=== PATIENT | female | born 1945 | race Caucasian/White ===

== ENCOUNTER 2017-03-14 18:51 | Inpatient (IN) ==
[2017-03-14] MEDS ORDERED: Ipratropium/Albuterol Neb 3 ML IH ONE (19:13)
[2017-03-14] MEDS ORDERED: methylPREDNISolone 125 MG/2 ML VIAL IVP ONE (19:13)
--- NOTE | 2017-03-14 19:35 | Emergency Department Note ---
START Narrative - START START: I examined this patient and my medical decision-making was reviewed with the Resident Physician. I agree with the documented findings, disposition and treatment plan as described except to the extent set forth below. 71 yo F here for weakness, sob. unable to get around at home and ambulate due to her sob. she has hx of copd. wears home O2 chronically. will check labs, cardiac eval, cxr, ekg is concerning for diffuse lateral t wave inversions will need to be admitted
--- NOTE | 2017-03-14 19:39 | Emergency Department Note ---
Disposition Clinical Impression: Congestive heart failure Qualifiers: Congestive heart failure type: unspecified Congestive heart failure chronicity : unspecified Qualified Code(s): I50.9 - Heart failure, unspecified Anemia Qualifiers: Anemia type: unspecified type Qualified Code(s): D64.9 - Anemia, unspecified Cellulitis Qualifiers: Site of cellulitis: unspecified site Qualified Code(s): L03.90 - Cellulitis, unspecified Disposition: Admitted As Inpatient Condition: Fair Referrals: Hawk Sarmiento MD [Primary Care Provider] - Forms: ED Satisfaction Letter Time of Disposition: 22:17 General Adult HPI - General Chief complaint: ED Shortness of Breath/Dyspnea Stated complaint: ELISE Time Seen by Provider: 03/14/17 18:57 Source: patient, EMS Limitations: no limitations Nursing Notes Reviewed: Yes Vital Signs Reviewed: Yes - History of Present Illness HPI Narrative: Mrs. Rutherford, 71-year-old female, presents from home via EMS with multiple complaints. She lives at home with her son who is not bedside. Patient presents with dyspnea at rest and weakness. This has been progressive for the past 2 weeks. She has a history of COPD on 4 L nasal cannula continuous. She does not use any home inhalers. No fever, chills, cough, chest pains, palpitations. She also notes a warm tender mass in her left breast. This is better evaluated by her primary care physician and she was instructed to apply moist heat. Her symptoms have not improved with this management. She is, at baseline, incontinent of bowel and bladder and ambulates with walker. She typically self manages her care. However, for the past 2 weeks, she has been too weak and dyspneic. She has increasingly relied on her family to care for her. She states she has not been changed all day and they mock her with name calling. Pain Scale: 8 - Related Data Home Medications Medication Instructions Recorded Confirmed Aspirin Enteric Coated [Aspirin EC] 81 mg PO QAM 12/14/14 03/14/17 Cholecalciferol (Vitamin D3) 10,000 unit PO MO 12/14/14 03/14/17 [Vitamin D3] Digoxin [Lanoxin] 0.125 mg PO 1200 12/14/14 03/14/17 Docusate [Colace] 100 mg PO BID 12/14/14 03/14/17 Duloxetine HCl [Cymbalta] 60 mg PO QAM 12/14/14 03/14/17 Gabapentin [Neurontin] 100 mg PO TID 12/14/14 03/14/17 Nitroglycerin 0.4 mg SL Q5MIN PRN 12/14/14 03/14/17 Omeprazole [PriLOSEC] 40 mg PO QAM 12/14/14 03/14/17 Rivaroxaban [Xarelto] 20 mg PO QPM 12/14/14 03/14/17 Simvastatin [Zocor] 40 mg PO HS 12/14/14 03/14/17 TraZODone 50 mg PO HS 12/14/14 03/14/17 Levothyroxine [Synthroid] 88 mcg PO QAM 03/24/15 03/14/17 Polyethylene Glycol 3350 [MiraLAX] 17 gm PO DAILY PRN 08/31/15 03/14/17 Metoprolol XL (24 HR) Succ [Toprol 25 mg PO DAILY 03/14/17 03/14/17 XL] Previous Rx's Medication Instructions Recorded OxyCODONE/APAP 10/325 [Percocet 1 each PO Q6HR PRN #25 tablet 03/27/15 10/325 MG] Allergies Allergy/AdvReac Type Severity Reaction Status Date / Time Penicillins [PCN] Allergy Blister Verified 03/24/15 17:12 All systems ED: reviewed and negative except as stated. Review of Systems: As Per HPI Past Medical History - Past Medical History Medical history: Reports: arthritis, atrial fibrillation, COPD, GERD, hyperlipidemia, hypertension, thyroid disease, other Surgical history: Reports: orthopedic, other, pacemaker/AICD Psychiatric history: Reports: anxiety, depression - Social History Smoking Status: Never smoker Smokeless Tobacco Status: No Alcohol use: Reports: none Drug use: Reports: none Physical Exam Vital Signs Reviewed General: Patient is alert, oriented, and in no acute distress. Head: atraumatic, normocephalic Eye: normal appearance, PERRL, EOMI, no scleral icterus, no conjunctival injection ENT: mucous membranes moist, normal external ear exam Neck: normal inspection, trachea midline, full ROM Chest: normal inspection, symmetric chest rise. Respiratory: Poor respiratory effort. Prolonged expiratory phase. Bilateral breath sounds globally diminished without wheezing, crackles, or rhonchi. Cardiovastular: Regular rate and rhythm. No clicks, rubs, gallops, or murmors. Normal heart sounds. Abdomen: Obese. Bowel sounds present normoactive x-4 quadrants. Abdomen is soft, nondistended, and nontender. No guarding or rebound. No organomegaly noted. 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 No hemorrhoids palpated, stool in rectal vault , melanotic stool on gloved finger. Hemoccult submitted. Musculoskeletal: Spontaneously moving all extremities. Skin: warm, dry, intact. Breasts with lateral erythematous skin; left breast is noticeably more dense than right. [employer]ing [employer] Worker present. Neuro: Alert and oriented x4. Sensation light touch intact. Psych: Patient's affect is appropriate for situation. - General Limitations: no limitations General appearance: alert, in no apparent distress Course Course Narrative: We will perform workup looking for cardiogenic versus pulmonary versus hematologic source of her dyspnea. Patient's elevated d-dimer; CTA chest shows no PE. Clinically, patient's erythematous warm tender and swollen left breast appears to be sialitis. No fluctuance. CTA chest did not show abscess collection. We will provide empiric antibody coverage. Patient has slight elevation of BNP. She denies prior diagnosis of CHF and this is not found in her chart. She does, however, have pacemaker placed. We will provide Lasix. Echocardiogram dated 08/10/15 shows LVEF 50% with pulmonary hypertension. Indeterminate LV diastolic function with atypical septal motion consistent with paced rhythm. Normal LV chamber size, wall thickness, and function. Patient has anemia that appears to be acute. She reports melanotic stools. Hemoccult is negative. Protonix was provided after rectal exam and prior to Hemoccult results; rectal exam showed melanotic stool. We will admit the patient for anemia of unknown cause, acute exacerbation of congestive heart failure, cellulitis of her left breast, and contact with social security specialist for her home life. I discussed the patient with the admitting hospitalist who agrees to accept the patient for continued evaluation and management. Vital Signs Temperature 98.8 F 03/14/17 18:53 Pulse Rate 89 03/14/17 18:53 Respiratory Rate 18 03/14/17 18:53 Blood Pressure 161/141 03/14/17 18:53 O2 Sat by Pulse Oximetry 94 03/14/17 18:53 Temperature 98.8 F 03/14/17 18:53 Pulse Rate 89 03/14/17 18:53 Respiratory Rate 22 03/14/17 19:20 Blood Pressure 161/141 03/14/17 18:53 O2 Sat by Pulse Oximetry 91 03/14/17 19:20 Oxygen Delivery Oxygen Delivery Nasal Cannula Medical Decision Making - Medical Records Medical records reviewed: Yes I reviewed the patient's medical records. - Lab Data Lab results reviewed: Yes I reviewed the patient's lab results. Result diagrams: 03/14/17 19:46 03/14/17 19:46 Lab Results 03/14/17 03/14/17 03/14/17 Range/Units 19:46 19:46 19:46 WBC 8.8 (4.3-11.1) K/mcL RBC 3.69 L (3.82-4.97) M/mcL Hgb 8.3 L (11.5-15.4) g/dL Hct 29.4 L (35.3-44.9) % MCV 79.7 L (83.0-100.0) fL MCH 22.5 L (28.0-33.3) pg MCHC 28.2 L (31.6-35.5) g/dL RDW 16.7 H (11.5-14.5) % Plt Count 256 (140-400) K/mcL MPV 10.7 (9.4-12.4) fL Immature Gran % 0.2 (0-4) % Seg Neutrophils % 74.6 % Lymphocytes % 14.9 % Monocytes % 8.4 % Eosinophils % 1.0 % Basophils % 0.9 % Neutrophils # 6.6 (1.6-8.9) K/mcL Lymphocytes # 1.3 (0.6-4.6) K/mcL Monocytes # 0.7 (0.0-1.3) K/mcL Eosinophils # 0.1 (0.0-0.6) K/mcL Basophils # 0.1 (0.0-0.2) K/mcL Platelet Estimate Normal (Normal) Hypochromasia Present A (Not Present) Anisocytosis 1+ A (Not Present) Target Cells 1+ A (Not Present) PT 20.1 H (9.4-12.1) Seconds INR 1.8 APTT 31.9 (26.0-36.0) Seconds D-Dimer 2261 H (0-500) ng/mLFEU Sodium 140 (136-145) mEq/L Potassium 3.9 (3.5-5.1) mEq/L Chloride 101 (98-107) mEq/L Carbon Dioxide 36 H (23-29) mEq/L BUN 13 (8-23) mg/dL Creatinine 0.69 (0.60-1.20) mg/dL Est GFR ( Amer) > 60 (> 60) Est GFR (Non-Af Amer) > 60 (> 60) BUN/Creatinine Ratio 19 (6-26) Glucose 100 (70-105) mg/dL Calculated Osmolality 290 (280-300) Lactic Acid (0.5-2.2) mmol/L Calcium 9.2 (8.6-10.3) mg/dL Troponin I (< 0.04) ng/mL B-Natriuretic Peptide (Less than 100) pg/mL Urine Color (Yellow) Urine Clarity (Clear) Urine pH (5.0-8.0) pH Units Ur Specific Adams (1.010-1.025) Urine Protein (Neg-Trace) mg/dL Urine Glucose (UA) (Normal) mg/dL Urine Ketones (Negative) mg/dL Urine Blood (Negative) Urine Nitrite (Negative) Urine Bilirubin (Negative) Urine Urobilinogen (Normal) mg/dL Ur Leukocyte Esterase (Negative) Urine Microscopic RBC (0-3) per hpf Urine Microscopic WBC (0-3) per hpf Ur Squamous Epith Cells (None-Few) per lpf Urine Bacteria (None-Few) per hpf Hyaline Casts (None-Few) per lpf Ur Culture Indicated? (NO) Stool Occult Blood (Negative) 03/14/17 03/14/17 03/14/17 Range/Units 19:46 19:46 19:46 WBC (4.3-11.1) K/mcL RBC (3.82-4.97) M/mcL Hgb (11.5-15.4) g/dL Hct (35.3-44.9) % MCV (83.0-100.0) fL MCH (28.0-33.3) pg MCHC (31.6-35.5) g/dL RDW (11.5-14.5) % Plt Count (140-400) K/mcL MPV (9.4-12.4) fL Immature Gran % (0-4) % Seg Neutrophils % % Lymphocytes % % Monocytes % % Eosinophils % % Basophils % % Neutrophils # (1.6-8.9) K/mcL Lymphocytes # (0.6-4.6) K/mcL Monocytes # (0.0-1.3) K/mcL Eosinophils # (0.0-0.6) K/mcL Basophils # (0.0-0.2) K/mcL Platelet Estimate (Normal) Hypochromasia (Not Present) Anisocytosis (Not Present) Target Cells (Not Present) PT (9.4-12.1) Seconds INR APTT (26.0-36.0) Seconds D-Dimer (0-500) ng/mLFEU Sodium (136-145) mEq/L Potassium (3.5-5.1) mEq/L Chloride (98-107) mEq/L Carbon Dioxide (23-29) mEq/L BUN (8-23) mg/dL Creatinine (0.60-1.20) mg/dL Est GFR ( Amer) (> 60) Est GFR (Non-Af Amer) (> 60) BUN/Creatinine Ratio (6-26) Glucose (70-105) mg/dL Calculated Osmolality (280-300) Lactic Acid 1.1 (0.5-2.2) mmol/L Calcium (8.6-10.3) mg/dL Troponin I 0.03 (< 0.04) ng/mL B-Natriuretic Peptide 368 H (Less than 100) pg/mL Urine Color (Yellow) Urine Clarity (Clear) Urine pH (5.0-8.0) pH Units Ur Specific Adams (1.010-1.025) Urine Protein (Neg-Trace) mg/dL Urine Glucose (UA) (Normal) mg/dL Urine Ketones (Negative) mg/dL Urine Blood (Negative) Urine Nitrite (Negative) Urine Bilirubin (Negative) Urine Urobilinogen (Normal) mg/dL Ur Leukocyte Esterase (Negative) Urine Microscopic RBC (0-3) per hpf Urine Microscopic WBC (0-3) per hpf Ur Squamous Epith Cells (None-Few) per lpf Urine Bacteria (None-Few) per hpf Hyaline Casts (None-Few) per lpf Ur Culture Indicated? (NO) Stool Occult Blood (Negative) 03/14/17 03/14/17 Range/Units 20:25 21:35 WBC (4.3-11.1) K/mcL RBC (3.82-4.97) M/mcL Hgb (11.5-15.4) g/dL Hct (35.3-44.9) % MCV (83.0-100.0) fL MCH (28.0-33.3) pg MCHC (31.6-35.5) g/dL RDW (11.5-14.5) % Plt Count (140-400) K/mcL MPV (9.4-12.4) fL Immature Gran % (0-4) % Seg Neutrophils % % Lymphocytes % % Monocytes % % Eosinophils % % Basophils % % Neutrophils # (1.6-8.9) K/mcL Lymphocytes # (0.6-4.6) K/mcL Monocytes # (0.0-1.3) K/mcL Eosinophils # (0.0-0.6) K/mcL Basophils # (0.0-0.2) K/mcL Platelet Estimate (Normal) Hypochromasia (Not Present) Anisocytosis (Not Present) Target Cells (Not Present) PT (9.4-12.1) Seconds INR APTT (26.0-36.0) Seconds D-Dimer (0-500) ng/mLFEU Sodium (136-145) mEq/L Potassium (3.5-5.1) mEq/L Chloride (98-107) mEq/L Carbon Dioxide (23-29) mEq/L BUN (8-23) mg/dL Creatinine (0.60-1.20) mg/dL Est GFR ( Amer) (> 60) Est GFR (Non-Af Amer) (> 60) BUN/Creatinine Ratio (6-26) Glucose (70-105) mg/dL Calculated Osmolality (280-300) Lactic Acid (0.5-2.2) mmol/L Calcium (8.6-10.3) mg/dL Troponin I (< 0.04) ng/mL B-Natriuretic Peptide (Less than 100) pg/mL Urine Color Yellow (Yellow) Urine Clarity Cloudy A (Clear) Urine pH 7.0 (5.0-8.0) pH Units Ur Specific Adams 1.012 (1.010-1.025) Urine Protein Negative (Neg-Trace) mg/dL Urine Glucose (UA) Normal (Normal) mg/dL Urine Ketones Negative (Negative) mg/dL Urine Blood Small H (Negative) Urine Nitrite Negative (Negative) Urine Bilirubin Negative (Negative) Urine Urobilinogen 4.0 H (Normal) mg/dL Ur Leukocyte Esterase Trace H (Negative) Urine Microscopic RBC 3-5 H (0-3) per hpf Urine Microscopic WBC 5-15 H (0-3) per hpf Ur Squamous Epith Cells Many H (None-Few) per lpf Urine Bacteria Few (None-Few) per hpf Hyaline Casts None Seen (None-Few) per lpf Ur Culture Indicated? NO. (NO) Stool Occult Blood Negative (Negative) - Radiology Data Radiology results reviewed: Yes I reviewed the patient's radiology results. - EKG Data EKG #1 EKG attestation: Yes I reviewed and interpreted this EKG. EKG results narrative: EKG dated 14 March 2017 at 19:04 interpreted as atrial flutter fibrillation with a rate of 78. Concerning T-wave inversions in leads V3 through V6 that are new from comparison EKG dated 08/31/2015.
[2017-03-14 19:57] LABS: Hemoglobin 8.3 g/dL (11.5-15.4); Immature Granulocytes % 0.2 % (0-4); Red Cell Distribution Width 16.7 % (11.5-14.5)
[2017-03-14 19:58] LABS: Basophils # 0.1 K/mcL (0.0-0.2); Basophils % 0.9 %; Eosinophils # 0.1 K/mcL (0.0-0.6); Hematocrit 29.4 % (35.3-44.9); Lymphocytes # 1.3 K/mcL (0.6-4.6); Lymphocytes % 14.9 %; Mean Corpuscular HGB Conc 28.2 g/dL (31.6-35.5); Mean Corpuscular Hemoglobin 22.5 pg (28.0-33.3); Mean Corpuscular Volume 79.7 fL (83.0-100.0); Mean Platelet Volume 10.7 fL (9.4-12.4); Monocytes # 0.7 K/mcL (0.0-1.3); Monocytes % 8.4 %; Platelet Count 256 K/mcL (140-400); Red Blood Count 3.69 M/mcL (3.82-4.97); Segmented Neutrophils % 74.6 %
[2017-03-14 20:01] LABS: Neutrophils # 6.6 K/mcL (1.6-8.9)
[2017-03-14 20:06] LABS: Calcium 9.2 mg/dL (8.6-10.3); Carbon Dioxide 36 mEq/L (23-29); Chloride 101 mEq/L (98-107); Potassium 3.9 mEq/L (3.5-5.1); Sodium 140 mEq/L (136-145)
[2017-03-14 20:09] LABS: INR 1.8; Prothrombin Time 20.1 Seconds (9.4-12.1)
[2017-03-14 20:11] LABS: BUN/Creatinine Ratio 19 (6-26); Blood Urea Nitrogen 13 mg/dL (8-23); Glucose 100 mg/dL (70-105); Osmolality,Calculated 290 (280-300); eGFR For African Americans > 60 (> 60); eGFR For Non-African Americans > 60 (> 60)
[2017-03-14 20:12] LABS: Activated Partial Thrombo Time 31.9 Seconds (26.0-36.0)
[2017-03-14 20:24] LABS: Anisocytosis 1+ (Not Present); Hypochromasia Present (Not Present)
[2017-03-14 20:25] LABS: Platelet Estimate Normal (Normal); Target Cells 1+ (Not Present)
[2017-03-14 20:35] LABS: Bilirubin,Urine Negative (Negative); Blood,Urine Small (Negative); Clarity,Urine Cloudy (Clear); Color,Urine Yellow (Yellow); Glucose,Urine (UA) Normal (Normal); Ketones,Urine Negative (Negative); Leukocyte Esterase,Urine Trace (Negative); Nitrite,Urine Negative (Negative); Protein,Urine Negative (Neg-Trace); Specific Gravity,Urine 1.012 (1.010-1.025)
[2017-03-14 20:37] LABS: Bacteria,Urine Few per hpf (None-Few); Hyaline Casts,Urine None Seen per lpf (None-Few); Squamous Epithelial Cell,Urine Many per lpf (None-Few)
[2017-03-14] MEDS ORDERED: Furosemide 40 MG/4 ML VIAL IVP ONE (21:28)
[2017-03-14] MEDS ORDERED: Pantoprazole 40 MG VIAL IVP ONE (21:41)
[2017-03-14] MEDS ORDERED: cefTRIAXone 1,000 MG in Water for inj. (sterile) 20 ML 10 ML IVPB ONE (22:15)
[2017-03-15] MEDS ORDERED: Naloxone 0.4 MG/ML INJ IVP PRN (00:06)
[2017-03-15] MEDS ORDERED: Nitroglycerin 0.4 MG TAB.SUBL SL PRN (00:22)
--- NOTE | 2017-03-15 00:30 | Internal Med History&Physical ---
Date of Encounter: 03/14/17 Time of Encounter: 23:00 Assessment and Plan (1) CHF exacerbation Current visit: Yes Status: Acute Pt has no recent Echo available, echo in 2016 shows EF 50%. Her symptoms and elevated BNP and pulmonary edema sugget CHF exacerbation. - Echo - Lasix 20mg iv daily (pt is not on any lasix at home and she had CTA today, will start lasix from low dose). - Strict I/O, weight daily - Cardiac and fluid restriction diet - Cont NC O2 Qualifiers: Congestive heart failure type: systolic Qualified Code(s): I50.23 - Acute on chronic systolic (congestive) heart failure (2) Abnormal finding on EKG Current visit: Yes Status: Acute Shows multiple leads T wave invertion. No recent ECG to compare, significant changes from EKG in 2016. - Cont cardiac monitoring. - Track 3 sets of troponin - Repeat EKG in AM - F/U Echo result - Consider cardio consult per echo and repeat EKG result. (3) HTN (hypertension) Current visit: No Status: Chronic Cont home meds. Qualifiers: Hypertension type: essential hypertension Qualified Code(s): I10 - Essential (primary) hypertension (4) Afib Current visit: No Status: Acute HR is well controlled, on xarelto for AC. Qualifiers: Atrial fibrillation type: chronic Qualified Code(s): I48.2 - Chronic atrial fibrillation (5) Anemia Current visit: Yes Status: Acute Pt has Hgb 8.3, no recent level available for compare, last one in 2016 was 13.1. MCV 79.7, suspect iron deficiency. FOBT negative in ER. - Place pt on anemia workup - Closely f/u H/H Qualifiers: Anemia type: iron deficiency Qualified Code(s): D50.0 - Iron deficiency anemia secondary to blood loss (chronic) (6) Hypothyroidism Current visit: Yes Status: Acute Cont home meds. Qualifiers: Hypothyroidism type: acquired Qualified Code(s): E03.9 - Hypothyroidism, unspecified Internal Medicine - H&P: HPI Chief complaint: SOB Admitted From: Home Plans for Post Hospital Care: Home History of present illness: Ms. Rutherford is a 71 year old female with Hx of A Fib, HTN, present to ER for SOB. Pt has exertional SOB for months and getting worse in recent 2 weeks. Pt cannot lay flat to sleep, need 3and1/2 pillow. Can not tolerate walking on flat floor for about 10 yards. Pt also has increased leg swelling. Pt denies chest pain. She c/o nausea and vomited once, vomiting is stomach content, no blood in it. Pt denies diaphoresis. In ER, she was found elevated BNP and CXR and CTA shows pulmonary edema. Pt was admitted as CHF exacerbation. She was given lasix 40mg iv once and she has 1.5 L urine came out and she feels much better after the treatment. Past Med Surg Social Fam HX - Past Medical History Medical history: arthritis, atrial fibrillation, COPD, GERD, hyperlipidemia, hypertension, thyroid disease, other Psychiatric history: anxiety, depression - Past Surgical History Surgical History: orthopedic, other, pacemaker/AICD - Social History Smoking Status: Never smoker Smokeless Tobacco Status: No Alcohol use: none Drug use: none - Family History Father Hx Family Cardiac Disorders: Yes (massive CA) Internal Medicine - H&P: Meds Aspirin Enteric Coated [Aspirin EC] 81 mg PO QAM 12/14/14 [History] Cholecalciferol (Vitamin D3) [Vitamin D3] 10,000 unit PO MO 12/14/14 [History] Digoxin [Lanoxin] 0.125 mg PO 1200 12/14/14 [History] Docusate [Colace] 100 mg PO BID 12/14/14 [History] Duloxetine HCl [Cymbalta] 60 mg PO QAM 12/14/14 [History] Gabapentin [Neurontin] 100 mg PO TID 12/14/14 [History] Nitroglycerin 0.4 mg SL Q5MIN PRN 12/14/14 [History] Omeprazole [PriLOSEC] 40 mg PO QAM 12/14/14 [History] Rivaroxaban [Xarelto] 20 mg PO QPM 12/14/14 [History] Simvastatin [Zocor] 40 mg PO HS 12/14/14 [History] TraZODone 50 mg PO HS 12/14/14 [History] Levothyroxine [Synthroid] 88 mcg PO QAM 03/24/15 [History] OxyCODONE/APAP 10/325 [Percocet 10/325 MG] 1 each PO Q6HR PRN #25 tablet [Rx] Polyethylene Glycol 3350 [MiraLAX] 17 gm PO DAILY PRN 08/31/15 [History] Metoprolol XL (24 HR) Succ [Toprol XL] 25 mg PO DAILY 03/14/17 [History] 3 Allergy/AdvReac Type Severity Reaction Status Date / Time Penicillins [PCN] Allergy Blister Verified 03/24/15 17:12 All Systems PM: A 10-system review of systems was performed and is negative for pertinent findings except as documented above in the HPI. - Constitutional Vitals: Temp Pulse Resp BP Pulse Ox 98.4 F 84 18 152/102 92 03/14/17 23:02 03/14/17 23:02 03/14/17 23:02 03/14/17 23:02 03/14/17 23:23 General appearance: Present: A&O X 3, no acute distress, answers questions appropriately - Head Head exam: Present: atraumatic, normocephalic - Eye Eye exam: Present: PERRL, conjuntiva pink, sclera anicteric Pupils: Present: PERRL - Neck Neck exam general surgery: Present: supple, trachea midline. Absent: lymphadenopathy - Respiratory Respiratory exam: Present: CTAB. Absent: accessory muscle use, rales, rhonchi, wheezes - Cardiovascular Cardiovascular exam: Present: RRR, +S1, +S2. Absent: diastolic murmur, gallop, rubs, systolic murmur - GI/Abdominal GI/Abdominal exam: Present: normal bowel sounds, soft, no peritoneal signs. Absent: distended, tenderness - Extremities Exam Extremities exam: Present: pedal edema (mild pedal edema b/l), warm, radial pulses palpable and symmetrical. Absent: calf tenderness, cyanotic - Neurological Exam Neurological exam: Present: CN II-XII intact, oriented X3, no focal deficits. Absent: pronater drift, facial droop, speech deficit - Skin Skin exam: Present: dry, intact Internal Med - H&P Results - Labs CBC & Chem 7: 03/14/17 19:46 03/14/17 19:46 - EKG Data -: EKG Interpreted by Myself (Azael Mejias, ) EKG shows normal: ST-T waves (T wave inversion on I, AVL, II, III, AVF, V3-V6)
[2017-03-15 00:38] LABS: Monocytes % 0.9 %
[2017-03-15 00:39] LABS: Basophils % 0.5 %; Hematocrit 30.5 % (35.3-44.9); Hemoglobin 8.7 g/dL (11.5-15.4); Immature Granulocytes % 0.5 % (0-4); Lymphocytes # 0.4 K/mcL (0.6-4.6); Lymphocytes % 4.5 %; Mean Corpuscular HGB Conc 28.5 g/dL (31.6-35.5); Mean Corpuscular Hemoglobin 22.3 pg (28.0-33.3); Mean Corpuscular Volume 78.2 fL (83.0-100.0); Mean Platelet Volume 10.4 fL (9.4-12.4); Monocytes # 0.1 K/mcL (0.0-1.3); Neutrophils # 7.3 K/mcL (1.6-8.9); Platelet Count 265 K/mcL (140-400); Red Cell Distribution Width 16.7 % (11.5-14.5); Segmented Neutrophils % 93.6 %
[2017-03-15 01:03] LABS: BUN/Creatinine Ratio 17 (6-26); Blood Urea Nitrogen 13 mg/dL (8-23); Calcium 9.3 mg/dL (8.6-10.3); Carbon Dioxide 36 mEq/L (23-29); Chloride 98 mEq/L (98-107); Glucose 144 mg/dL (70-105); Osmolality,Calculated 295 (280-300); Potassium 3.8 mEq/L (3.5-5.1); Sodium 141 mEq/L (136-145); eGFR For African Americans > 60 (> 60); eGFR For Non-African Americans > 60 (> 60)
[2017-03-15 01:24] LABS: Anisocytosis 1+ (Not Present); Hypochromasia Present (Not Present)
[2017-03-15 01:25] LABS: Microcytosis Present (Not Present); Platelet Estimate Normal (Normal); Polychromasia 1+ (Not Present)
[2017-03-15] MEDS: traZODone 50 MG TABLET PO SCH ×2 (03:16→21:36)
[2017-03-15 06:34] LABS: Thyroid Stimulating Hormone 0.713 mcIU/mL (0.340-5.600)
[2017-03-15] MEDS: *HR* OxyCODONE/APAP 10/325 TABLET PO PRN ×2 (11:06→21:39)
[2017-03-15] MEDS: *HR* Digoxin 0.125 MG TABLET PO SCH (11:06)
[2017-03-15] MEDS: Metoprolol XL (24 HR) Succ 25 MG TAB.ER.24H PO SCH (11:06)
[2017-03-15] MEDS: Gabapentin 100 MG CAPSULE PO SCH ×3 (11:07→21:33)
[2017-03-15] MEDS: Aspirin Enteric Coated 81 MG Tablet PO SCH (11:07)
[2017-03-15] MEDS: Furosemide 20 MG/2 ML VIAL IVP SCH (11:07)
[2017-03-15] MEDS ORDERED: Ipratropium/Albuterol Neb 3 ML IH PRN (12:00)
--- NOTE | 2017-03-15 17:52 | Event Note ---
Date of Encounter: 03/15/17 Time of Encounter: 13:00 71-year-old female with history of hypertension, atrial fibrillation, hypothyroidism, COPD with home oxygen, admitted with worsening shortness of breath and leg swelling. She also has left breast swelling and pain. Seen and examined at bedside. Reports feeling very tired, wanting to rest, hence refused mammogram earlier today. Chest-S1, S2 heard, irregular rate and rhythm. Lungs with bibasal crackles Left breast-diffuse edema with peau d'orange appearance, mildly tender; no erythema or warmth or open wounds; Acute exacerbation of CHF-continue low-dose IV Lasix. Fluid restriction, urine output monitoring. Serial troponins noted to be negative. Continue aspirin and beta marianna. Check 2-D echocardiogram. Left breast swelling/edema-likely related to volume overload or lymphangitis. Started on empiric IV Rocephin for possible cellulitis. Check left breast mammogram and ultrasound.
[2017-03-15] MEDS: *HR* Rivaroxaban 10 MG TABLET PO SCH (18:24)
--- NOTE | 2017-03-15 19:49 | Electrocardiograph Report ---
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
[2017-03-15] MEDS: cefTRIAXone 1,000 MG in Water for inj. (sterile) 20 ML 10 ML IVP SCH (21:34)
[2017-03-16 06:07] LABS: Monocytes % 11.2 %
[2017-03-16 06:08] LABS: Basophils # 0.1 K/mcL (0.0-0.2); Basophils % 0.9 %; Eosinophils # 0.1 K/mcL (0.0-0.6); Eosinophils % 1.3 %; Hemoglobin 8.9 g/dL (11.5-15.4); Immature Granulocytes % 0.3 % (0-4); Lymphocytes # 2.1 K/mcL (0.6-4.6); Lymphocytes % 24.3 %; Mean Corpuscular HGB Conc 28.7 g/dL (31.6-35.5); Mean Corpuscular Hemoglobin 22.7 pg (28.0-33.3); Mean Corpuscular Volume 79.1 fL (83.0-100.0); Mean Platelet Volume 10.7 fL (9.4-12.4); Platelet Count 277 K/mcL (140-400); Red Blood Count 3.92 M/mcL (3.82-4.97); Red Cell Distribution Width 17.2 % (11.5-14.5)
[2017-03-16 06:13] LABS: Neutrophils # 5.5 K/mcL (1.6-8.9)
[2017-03-16 06:32] LABS: Anisocytosis 1+ (Not Present); Hypochromasia Present (Not Present)
[2017-03-16 06:33] LABS: Platelet Estimate Normal (Normal)
[2017-03-16 06:34] LABS: BUN/Creatinine Ratio 20 (6-26); Blood Urea Nitrogen 17 mg/dL (8-23); Calcium 9.3 mg/dL (8.6-10.3); Carbon Dioxide 38 mEq/L (23-29); Chloride 97 mEq/L (98-107); Glucose 93 mg/dL (70-105); Osmolality,Calculated 293 (280-300); Potassium 3.7 mEq/L (3.5-5.1); Sodium 141 mEq/L (136-145); eGFR For African Americans > 60 (> 60); eGFR For Non-African Americans > 60 (> 60)
[2017-03-16] MEDS: Aspirin Enteric Coated 81 MG Tablet PO SCH (07:28)
[2017-03-16] MEDS: Furosemide 20 MG/2 ML VIAL IVP SCH (07:28)
[2017-03-16] MEDS: Gabapentin 100 MG CAPSULE PO SCH ×3 (07:28→21:16)
[2017-03-16] MEDS: Metoprolol XL (24 HR) Succ 25 MG TAB.ER.24H PO SCH (07:28)
[2017-03-16] MEDS: *HR* Digoxin 0.125 MG TABLET PO SCH (11:36)
[2017-03-16] MEDS: *HR* Rivaroxaban 10 MG TABLET PO SCH (17:16)
--- NOTE | 2017-03-16 17:53 | Internal Med Progress Note ---
Date of Encounter: 03/16/17 Time of Encounter: 13:30 - Assessment and plan (1) Congestive heart failure Current Visit: Yes Status: Acute Assessment and plan: Echocardiogram shows 50% ejection fraction, indeterminate diastolic dysfunction , severe left atrial dilation, moderate to severe right atrial dilation, moderate tricuspid regurgitation, severe pulmonary hypertension. Likely cor pulmonale. Noted to have excellent urine output. Continue IV Lasix for now along with fluid restriction and urine output monitoring. Continue beta marianna and telemetry. Physical and occupational therapy evaluation recommended ECF placement. surgical services tech on board. Qualifiers: Heart failure type: diastolic Heart failure chronicity: acute Qualified Code(s): I50.31 - Acute diastolic (congestive) heart failure (2) Abnormal finding on EKG Current Visit: Yes Status: Acute Assessment and plan: Initial EKG noted to show T-wave inversions in precordial leads. Serial troponins negative for ACS. Continue telemetry monitoring, repeat EKG. (3) Anemia Current Visit: Yes Status: Acute Assessment and plan: Microcytic anemia; iron profile shows iron deficiency, started on oral ferrous sulfate supplements; stool occult blood negative; serum Vit B12 and folate levels normal; monitor Hb closely; Qualifiers: Anemia type: iron deficiency Iron deficiency anemia type: unspecified iron deficiency Qualified Code(s): D50.9 - Iron deficiency anemia, unspecified (4) Cellulitis Current Visit: Yes Status: Acute Assessment and plan: Patient is being empirically treated with IV Rocephin for left breast cellulitis. Suspicion for cellulitis is low but patient does have significant edema and tenderness in left breast with no erythema or focal swelling. Pending mammogram and left breast ultrasound. Qualifiers: Site of cellulitis: other site Qualified Code(s): L03.818 - Cellulitis of other sites (5) Afib Current Visit: Yes Status: Chronic Assessment and plan: Currently rate controlled. Continue digoxin and beta marianna. Long-term anticoagulation with Xarelto. Qualifiers: Atrial fibrillation type: chronic Qualified Code(s): I48.2 - Chronic atrial fibrillation (6) COPD (chronic obstructive pulmonary disease) Current Visit: Yes Status: Chronic Assessment and plan: Not in acute exacerbation. Continue when necessary bronchodilators. Patient is noted to be on home oxygen at 4 L/m via nasal cannula. Qualifiers: COPD type: unspecified COPD Qualified Code(s): J44.9 - Chronic obstructive pulmonary disease, unspecified (7) HTN (hypertension) Current Visit: Yes Status: Chronic Qualifiers: Hypertension type: essential hypertension Qualified Code(s): I10 - Essential (primary) hypertension (8) Breast edema Current Visit: Yes Status: Acute Assessment and plan: Plan as above. Cellulitis versus lymphangitis. To rule out mass. - Constitutional Vitals: Temp Pulse Resp BP Pulse Ox 98.2 F 82 18 144/85 92 03/16/17 15:49 03/16/17 15:49 03/16/17 15:49 03/16/17 15:49 03/16/17 15:49 General appearance: Present: A&O X 3, no acute distress, answers questions appropriately Internal Medicine: Result - Labs CBC & Chem 7: 03/16/17 05:21 03/16/17 05:21 Labs: Short CBC 03/16/17 Range/Units 05:21 WBC 8.8 (4.3-11.1) K/mcL Hgb 8.9 L (11.5-15.4) g/dL Hct 31.0 L (35.3-44.9) % Plt Count 277 (140-400) K/mcL Neutrophils # 5.5 (1.6-8.9) K/mcL BMP 03/16/17 05:21 Sodium 141 Potassium 3.7 Chloride 97 L Carbon Dioxide 38 H BUN 17 Creatinine 0.83 Glucose 93 Calcium 9.3 - ABG Interpretation ABG results: PT/INR, D-dimer PT 20.1 Seconds (9.4-12.1) H 03/14/17 19:46 D-Dimer 2261 ng/mLFEU (0-500) H 03/14/17 19:46 Consult Discharge Plan - Plan Referrals: Hawk Sarmiento MD [Primary Care Provider] -
[2017-03-16] MEDS: traZODone 50 MG TABLET PO SCH (21:16)
[2017-03-16] MEDS: *HR* OxyCODONE/APAP 10/325 TABLET PO PRN (21:16)
[2017-03-16] MEDS: cefTRIAXone 1,000 MG in Water for inj. (sterile) 20 ML 10 ML IVP SCH (21:17)
[2017-03-17] MEDS: Gabapentin 100 MG CAPSULE PO SCH ×3 (08:39→23:11)
[2017-03-17] MEDS: Metoprolol XL (24 HR) Succ 25 MG TAB.ER.24H PO SCH (08:40)
[2017-03-17] MEDS: Aspirin Enteric Coated 81 MG Tablet PO SCH (08:40)
[2017-03-17] MEDS: Furosemide 20 MG/2 ML VIAL IVP SCH (08:40)
[2017-03-17] MEDS: *HR* OxyCODONE/APAP 10/325 TABLET PO PRN ×2 (13:07→23:11)
[2017-03-17] MEDS: *HR* Digoxin 0.125 MG TABLET PO SCH (13:07)
--- NOTE | 2017-03-17 17:33 | Internal Med Progress Note ---
Date of Encounter: 03/17/17 Time of Encounter: 12:30 - Assessment and plan (1) Congestive heart failure Current Visit: Yes Status: Acute Assessment and plan: Echocardiogram shows 50% ejection fraction, indeterminate diastolic dysfunction , severe left atrial dilation, moderate to severe right atrial dilation, moderate tricuspid regurgitation, severe pulmonary hypertension. Likely cor pulmonale. Noted to have excellent urine output, net negative fluid balance of at least 8 L per records. We will change Lasix to oral Lasix. Continue fluid restriction and urine output monitoring. Continue beta marianna and telemetry. Physical and occupational therapy evaluation recommended ECF placement. 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 Qualifiers: Heart failure type: diastolic Heart failure chronicity: acute Qualified Code(s): I50.31 - Acute diastolic (congestive) heart failure (2) Abnormal finding on EKG Current Visit: Yes Status: Acute (3) Anemia Current Visit: Yes Status: Chronic Assessment and plan: Microcytic anemia; iron profile shows iron deficiency, started on oral ferrous sulfate supplements; stool occult blood negative; serum Vit B12 and folate levels normal; monitor Hb closely; Qualifiers: Anemia type: iron deficiency Iron deficiency anemia type: unspecified iron deficiency Qualified Code(s): D50.9 - Iron deficiency anemia, unspecified (4) Cellulitis Current Visit: Yes Status: Acute Assessment and plan: Patient is being empirically treated with IV Rocephin for left breast cellulitis. Suspicion for cellulitis is low but patient does have significant edema and tenderness in left breast with no erythema or focal swelling. Symptoms are improving but still persistent. Pending left breast ultrasound, mammogram cannot be performed on a weekend. Qualifiers: Site of cellulitis: other site Qualified Code(s): L03.818 - Cellulitis of other sites (5) Afib Current Visit: Yes Status: Chronic Assessment and plan: Currently rate controlled. Continue digoxin and beta marianna. Long-term anticoagulation with Xarelto. Qualifiers: Atrial fibrillation type: chronic Qualified Code(s): I48.2 - Chronic atrial fibrillation (6) COPD (chronic obstructive pulmonary disease) Current Visit: Yes Status: Chronic Assessment and plan: Not in acute exacerbation. Continue when necessary bronchodilators. Patient is noted to be on home oxygen at 4 L/m via nasal cannula. Qualifiers: COPD type: unspecified COPD Qualified Code(s): J44.9 - Chronic obstructive pulmonary disease, unspecified (7) HTN (hypertension) Current Visit: Yes Status: Chronic Qualifiers: Hypertension type: essential hypertension Qualified Code(s): I10 - Essential (primary) hypertension (8) Breast edema Current Visit: Yes Status: Acute (9) Chronic respiratory failure Current Visit: Yes Status: Chronic Assessment and plan: Due to COPD. Qualifiers: Respiratory failure complication: hypoxia Qualified Code(s): J96.11 - Chronic respiratory failure with hypoxia (10) Morbid obesity Current Visit: Yes Status: Chronic - Constitutional Vitals: Temp Pulse Resp BP Pulse Ox 98.4 F 72 15 117/78 93 03/17/17 14:43 03/17/17 14:43 03/17/17 14:43 03/17/17 14:43 03/17/17 14:43 General appearance: Present: A&O X 3, no acute distress, answers questions appropriately Internal Medicine: Result - Labs CBC & Chem 7: 03/16/17 05:21 03/16/17 05:21 - ABG Interpretation ABG results: PT/INR, D-dimer PT 20.1 Seconds (9.4-12.1) H 03/14/17 19:46 D-Dimer 2261 ng/mLFEU (0-500) H 03/14/17 19:46 Consult Discharge Plan - Plan Referrals: Hawk Sarmiento MD [Primary Care Provider] -
[2017-03-17] MEDS: Furosemide 20 MG TABLET PO SCH (17:48)
[2017-03-17] MEDS: *HR* Rivaroxaban 15 MG TABLET PO SCH (17:48)
[2017-03-17] MEDS: cefTRIAXone 1,000 MG in Water for inj. (sterile) 20 ML 10 ML IVP SCH (23:10)
[2017-03-17] MEDS: traZODone 50 MG TABLET PO SCH (23:12)
[2017-03-18] MEDS: Metoprolol XL (24 HR) Succ 25 MG TAB.ER.24H PO SCH (10:29)
[2017-03-18] MEDS: Gabapentin 100 MG CAPSULE PO SCH ×3 (10:29→21:39)
[2017-03-18] MEDS: Furosemide 20 MG TABLET PO SCH ×2 (10:29→18:37)
[2017-03-18] MEDS: Aspirin Enteric Coated 81 MG Tablet PO SCH (10:29)
[2017-03-18] MEDS: *HR* OxyCODONE/APAP 10/325 TABLET PO PRN ×2 (10:30→21:40)
[2017-03-18] MEDS: *HR* Digoxin 0.125 MG TABLET PO SCH (12:15)
--- NOTE | 2017-03-18 16:23 | Internal Med Progress Note ---
Date of Encounter: 03/18/17 Time of Encounter: 12:40 - Assessment and plan (1) Congestive heart failure Current Visit: Yes Status: Acute Assessment and plan: Echocardiogram shows 50% ejection fraction, indeterminate diastolic dysfunction , severe left atrial dilation, moderate to severe right atrial dilation, moderate tricuspid regurgitation, severe pulmonary hypertension. Likely cor pulmonale. Noted to have excellent urine output, net negative fluid balance of at least 9.5 L per records. Continue oral Lasix. Continue fluid restriction and urine output monitoring. Continue beta marianna and telemetry. Physical and occupational therapy evaluation recommended ECF placement. office services representative on board. Qualifiers: Heart failure type: diastolic Heart failure chronicity: acute Qualified Code(s): I50.31 - Acute diastolic (congestive) heart failure (2) Abnormal finding on EKG Current Visit: Yes Status: Acute (3) Anemia Current Visit: Yes Status: Chronic Assessment and plan: Microcytic anemia; iron profile shows iron deficiency, started on oral ferrous sulfate supplements; stool occult blood negative; serum Vit B12 and folate levels normal; monitor Hb closely; Qualifiers: Anemia type: iron deficiency Iron deficiency anemia type: unspecified iron deficiency Qualified Code(s): D50.9 - Iron deficiency anemia, unspecified (4) Cellulitis Current Visit: Yes Status: Acute Assessment and plan: Patient is being empirically treated with IV Rocephin for left breast cellulitis. Suspicion for cellulitis is low but patient does have significant edema and tenderness in left breast with no erythema or focal swelling. Symptoms are improving but still persistent. left breast ultrasound shows nonspecific edema, pending mammogram. Qualifiers: Site of cellulitis: other site Qualified Code(s): L03.818 - Cellulitis of other sites (5) Afib Current Visit: Yes Status: Chronic Assessment and plan: Currently rate controlled. Continue digoxin and beta marianna. Long-term anticoagulation with Xarelto. Qualifiers: Atrial fibrillation type: chronic Qualified Code(s): I48.2 - Chronic atrial fibrillation (6) COPD (chronic obstructive pulmonary disease) Current Visit: Yes Status: Chronic Assessment and plan: Not in acute exacerbation. Continue when necessary bronchodilators. Patient is noted to be on home oxygen at 4 L/m via nasal cannula. Qualifiers: COPD type: unspecified COPD Qualified Code(s): J44.9 - Chronic obstructive pulmonary disease, unspecified (7) HTN (hypertension) Current Visit: Yes Status: Chronic Qualifiers: Hypertension type: essential hypertension Qualified Code(s): I10 - Essential (primary) hypertension (8) Breast edema Current Visit: Yes Status: Acute (9) Chronic respiratory failure Current Visit: Yes Status: Chronic Qualifiers: Respiratory failure complication: hypoxia Qualified Code(s): J96.11 - Chronic respiratory failure with hypoxia (10) Morbid obesity Current Visit: Yes Status: Chronic - Subjective Interval history: Feels better. Denies new complaints. Continues to have left breast swelling, pending mammogram. Had excellent urine output with IV diuresis. - Constitutional Vitals: Temp Pulse Resp BP Pulse Ox 97.5 F L 74 18 102/64 98 03/18/17 15:00 03/18/17 15:00 03/18/17 15:00 03/18/17 15:00 03/18/17 15:00 General appearance: Present: A&O X 3, no acute distress, answers questions appropriately - Respiratory Respiratory exam: Present: CTAB (Bilateral coarse breath sounds). Absent: accessory muscle use, rales, rhonchi, wheezes - Cardiovascular Cardiovascular exam: Present: irregular rhythm, +S1, +S2. Absent: diastolic murmur, gallop, rubs, systolic murmur - Skin Skin exam: Present: dry, intact Additional comments: Left breast with dependent edema, peau d'orange appearance- improved since admission, but persistent Internal Medicine: Result - Labs CBC & Chem 7: 03/16/17 05:21 03/16/17 05:21 - ABG Interpretation ABG results: PT/INR, D-dimer PT 20.1 Seconds (9.4-12.1) H 03/14/17 19:46 D-Dimer 2261 ng/mLFEU (0-500) H 03/14/17 19:46 - Impressions Impressions Breast Ultrasound 03/17/17 00:00 IMPRESSION: Nonspecific edema in the left breast without focal mass seen. Bilateral mammography is recommended for complete assessment. BIRADS: BIRADS - CATEGORY 0 Additional imaging is recommended at this time. OVERALL ASSESSMENT - INCOMPLETE:NEED ADDITIONAL IMAGING EVALUATION. D/ / 03/18/2017 13:01:02 Feng Chandra MD / theresa Interpreting Provider: Feng Chandra MD Consult Discharge Plan - Plan Referrals: Hawk Sarmiento MD [Primary Care Provider] -
[2017-03-18] MEDS: *HR* Rivaroxaban 15 MG TABLET PO SCH (18:37)
[2017-03-18] MEDS: cefTRIAXone 1,000 MG in Water for inj. (sterile) 20 ML 10 ML IVP SCH (21:38)
[2017-03-19] MEDS: traZODone 50 MG TABLET PO SCH ×2 (00:16→22:18)
[2017-03-19 06:14] LABS: BUN/Creatinine Ratio 19 (6-26); Blood Urea Nitrogen 13 mg/dL (8-23); Calcium 9.5 mg/dL (8.6-10.3); Carbon Dioxide 41 mEq/L (23-29); Chloride 98 mEq/L (98-107); Glucose 105 mg/dL (70-105); Magnesium 2.1 mg/dL (1.6-2.6); Osmolality,Calculated 294 (280-300); Potassium 3.8 mEq/L (3.5-5.1); Sodium 142 mEq/L (136-145); eGFR For African Americans > 60 (> 60); eGFR For Non-African Americans > 60 (> 60)
--- NOTE | 2017-03-19 07:52 | Electrocardiograph Report ---
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
[2017-03-19] MEDS: Metoprolol XL (24 HR) Succ 25 MG TAB.ER.24H PO SCH (08:07)
[2017-03-19] MEDS: Aspirin Enteric Coated 81 MG Tablet PO SCH (08:07)
[2017-03-19] MEDS: Gabapentin 100 MG CAPSULE PO SCH ×3 (08:07→22:19)
[2017-03-19] MEDS: Furosemide 20 MG TABLET PO SCH ×2 (08:07→16:48)
[2017-03-19] MEDS: Cholecalciferol (D-3) 1,000 UNIT TABLET PO SCH (08:08)
[2017-03-19] MEDS: *HR* Digoxin 0.125 MG TABLET PO SCH (11:27)
[2017-03-19] MEDS: *HR* OxyCODONE/APAP 10/325 TABLET PO PRN (13:53)
--- NOTE | 2017-03-19 15:26 | Discharge Summary ---
Date of Encounter: 03/19/17 Time of Encounter: 11:30 - Discharge Diagnosis (1) Congestive heart failure Priority: Primary Status: Acute Qualifiers: Heart failure type: diastolic Heart failure chronicity: acute Qualified Code(s): I50.31 - Acute diastolic (congestive) heart failure (2) Abnormal finding on EKG Priority: Primary Status: Resolved (3) Anemia Priority: Secondary Status: Chronic Qualifiers: Anemia type: iron deficiency Iron deficiency anemia type: unspecified iron deficiency Qualified Code(s): D50.9 - Iron deficiency anemia, unspecified (4) Cellulitis Priority: Primary Status: Acute Qualifiers: Site of cellulitis: other site Qualified Code(s): L03.818 - Cellulitis of other sites (5) Afib Priority: Secondary Status: Chronic Qualifiers: Atrial fibrillation type: chronic Qualified Code(s): I48.2 - Chronic atrial fibrillation (6) COPD (chronic obstructive pulmonary disease) Priority: Secondary Status: Chronic Qualifiers: COPD type: unspecified COPD Qualified Code(s): J44.9 - Chronic obstructive pulmonary disease, unspecified (7) HTN (hypertension) Priority: Secondary Status: Chronic Qualifiers: Hypertension type: essential hypertension Qualified Code(s): I10 - Essential (primary) hypertension (8) Breast edema Priority: Primary Status: Acute (9) Chronic respiratory failure Priority: Secondary Status: Chronic Qualifiers: Respiratory failure complication: hypoxia Qualified Code(s): J96.11 - Chronic respiratory failure with hypoxia (10) Morbid obesity Priority: Secondary Status: Chronic - Discharge Medications Prescriptions: OxyCODONE/APAP 10/325 [Percocet 10/325 MG] 1 each PO Q6HR PRN 5 Days #15 tablet PRN Reason: Pain Cephalexin [Keflex] 500 mg PO Q8H #18 capsule Home Medications: Aspirin Enteric Coated [Aspirin EC] 81 mg PO QAM 12/14/14 [History] Cholecalciferol (Vitamin D3) [Vitamin D3] 10,000 unit PO MO 12/14/14 [History] Digoxin [Lanoxin] 0.125 mg PO 1200 12/14/14 [History] Docusate [Colace] 100 mg PO BID 12/14/14 [History] Duloxetine HCl [Cymbalta] 60 mg PO QAM 12/14/14 [History] Gabapentin [Neurontin] 100 mg PO TID 12/14/14 [History] Nitroglycerin 0.4 mg SL Q5MIN PRN 12/14/14 [History] Omeprazole [PriLOSEC] 40 mg PO QAM 12/14/14 [History] Simvastatin [Zocor] 40 mg PO HS 12/14/14 [History] TraZODone 50 mg PO HS 12/14/14 [History] Levothyroxine [Synthroid] 88 mcg PO QAM 03/24/15 [History] Polyethylene Glycol 3350 [MiraLAX] 17 gm PO DAILY PRN 08/31/15 [History] Metoprolol XL (24 HR) Succ [Toprol Xl] 25 mg PO DAILY 03/14/17 [History] Cephalexin [Keflex] 500 mg PO Q8H #18 capsule 03/19/17 [Rx] Ferrous Sulfate 325 mg PO BIDWM tablet 03/19/17 [Rx] Furosemide [Lasix] 20 mg PO BIDDIURETIC tablet 03/19/17 [Rx] OxyCODONE/APAP 10/325 [Percocet 10/325 MG] 1 each PO Q6HR PRN 5 Days #15 tablet 03/19/17 [Rx] Rivaroxaban [Xarelto] 15 mg PO 1700 tablet 03/19/17 [Rx] Allergies/Adverse Reactions: 3 Allergy/AdvReac Type Severity Reaction Status Date / Time Penicillins [PCN] Allergy Blister Verified 03/24/15 17:12 Procedures/tests Complete & Pending: Procedures Performed prior 72 hours Category Date Time Status US breast LT [US] Routine Exams 03/17/17 Completed ECG 12 lead ECG [ECG] Routine Y 03/17/17 15:54 Completed EKG [ECG 12 lead ECG] [ECG] Stat Y 03/17/17 15:15 Completed Date of admission: 03/15/17 00:06 Primary care physician: Hawk Sarmiento MD Consults: 03/15/17 12:00 Consult to Occupational Therapy [CONS] Routine Comment: Evaluate, develop and implement POC Reason for Consult: Deconditioning, CHF Consult to Physical Therapy [CONS] Routine Comment: Evaluate, develop and implement POC Reason for Consult: Deconditioning, CHF Discharging clinician: Alba Clarke Anticipated date of discharge: 03/19/17 - Patient Status Disposition: Transfer SNF Condition: Fair Functional capacity at discharge: uses cane/walker Overall status at discharge: patient is progressing back to baseline - Discharge Instructions Follow Up With: Hawk Sarmiento MD [Primary Care Provider] - Additional Instructions: F/up with PCP in 1-2 weeks - Diet and Activity Activity: as per physical therapy, wear oxygen at all times Diet: low fat, low cholesterol, low salt diet (fluid restriction to 1.5L/day) Hospital course: Ms. Rutherford is a 71 year old female with the above medical problems, who was admitted with worsening shortness of breath and leg swelling and generalized weakness. She was started on IV Lasix, fluid restriction for possible CHF exacerbation. Echo showed 50% ejection fraction, indeterminate diastolic dysfunction, severe left atrial dilation, moderate to severe right atrial dilation, moderate tricuspid regurgitation, severe pulmonary hypertension. Likely cor pulmonale due to underlying COPD. She was continued on Metoprolol and statin; had excellent urine output and Lasix is changed to PO Lasix now. She also had left breast edema since admission with no clear evidence of cellulitis. She was started on IV Rocephin empirically for possible cellulitis/ mastitis. B/L mammogram and breast U.S showed nonspecific edema, no focal mass; to repeat mammogram in 4-6 weeks. She is discharged on PO Augmentin, to complete a 10-day course of antibiotics. PT/OT evaluation recommends ECF placement and patient was agreeable; she is medically stable. - Time Spent with Patient Total time spent providing and/or coordinating discharge services: Greater than 30 minutes (45 min) - Constitutional Vitals: Temp Pulse Resp BP Pulse Ox 98.6 F 70 18 107/69 91 03/19/17 14:44 03/19/17 14:44 03/19/17 14:44 03/19/17 14:44 03/19/17 14:44 General appearance: Present: A&O X 3, no acute distress, answers questions appropriately - Cardiovascular Cardiovascular exam: Present: irregular rhythm, +S1, +S2. Absent: diastolic murmur, gallop, rubs, systolic murmur - Skin Skin exam: Present: dry, intact Additional comments: left breast edema+
--- NOTE | 2017-03-19 15:34 | Physician Discharge Referral ---
ExtendedCare Referral Info Transfer To: [facility] Provider in Charge: Alba Clarke Provider in Charge after Transfer: PCP Institutional Level of Care: Skilled - Diagnosis (1) Congestive heart failure Priority: Primary Status: Acute (2) Abnormal finding on EKG Priority: Primary Status: Resolved (3) Anemia Priority: Secondary Status: Chronic (4) Cellulitis Priority: Primary Status: Acute (5) Afib Priority: Secondary Status: Chronic (6) COPD (chronic obstructive pulmonary disease) Priority: Secondary Status: Chronic (7) HTN (hypertension) Priority: Secondary Status: Chronic (8) Breast edema Priority: Primary Status: Acute (9) Chronic respiratory failure Priority: Secondary Status: Chronic (10) Morbid obesity Priority: Secondary Status: Chronic Expected Duration of Placement: 3 weeks Prognosis: Fair Aware of Diagnosis: Patient, Family Aware of Prognosis: Patient, Family - Transfer Medications Prescriptions: OxyCODONE/APAP 10/325 [Percocet 10/325 MG] 1 each PO Q6HR PRN 5 Days #15 tablet PRN Reason: Pain Cephalexin [Keflex] 500 mg PO Q8H #18 capsule Home Medications: Aspirin Enteric Coated [Aspirin EC] 81 mg PO QAM 12/14/14 [History] Cholecalciferol (Vitamin D3) [Vitamin D3] 10,000 unit PO MO 12/14/14 [History] Digoxin [Lanoxin] 0.125 mg PO 1200 12/14/14 [History] Docusate [Colace] 100 mg PO BID 12/14/14 [History] Duloxetine HCl [Cymbalta] 60 mg PO QAM 12/14/14 [History] Gabapentin [Neurontin] 100 mg PO TID 12/14/14 [History] Nitroglycerin 0.4 mg SL Q5MIN PRN 12/14/14 [History] Omeprazole [PriLOSEC] 40 mg PO QAM 12/14/14 [History] Simvastatin [Zocor] 40 mg PO HS 12/14/14 [History] TraZODone 50 mg PO HS 12/14/14 [History] Levothyroxine [Synthroid] 88 mcg PO QAM 03/24/15 [History] Polyethylene Glycol 3350 [MiraLAX] 17 gm PO DAILY PRN 08/31/15 [History] Metoprolol XL (24 HR) Succ [Toprol Xl] 25 mg PO DAILY 03/14/17 [History] Cephalexin [Keflex] 500 mg PO Q8H #18 capsule 03/19/17 [Rx] Ferrous Sulfate 325 mg PO BIDWM tablet 03/19/17 [Rx] Furosemide [Lasix] 20 mg PO BIDDIURETIC tablet 03/19/17 [Rx] OxyCODONE/APAP 10/325 [Percocet 10/325 MG] 1 each PO Q6HR PRN 5 Days #15 tablet 03/19/17 [Rx] Rivaroxaban [Xarelto] 15 mg PO 1700 tablet 03/19/17 [Rx] Allergies/Adverse Reactions: 3 Allergy/AdvReac Type Severity Reaction Status Date / Time Penicillins [PCN] Allergy Blister Verified 03/24/15 17:12 - Respiratory Orders Oxygen / L per min (3-4L/min via NC) Smoking Cessation: Smoking cessation has been advised. For more information, call the [employer] Tobacco Quit Line at 5-168-VDMO-NOW. - Advance Directives Code Status: Full Code - Mobility Orders Ambulate - Rehabiliation Orders Rehab Potential: Fair Rehab Orders: Sternal Precautions, ROM Exercises, Evaluation for Physical Therapy, Evaluation for Occupational Therapy - Diet Orders Cardiac (fluid restriction to 1.5L/day) CERTIFICATION: I certify that the transfer of the above named patient to an Extended Care Facility is necessary for the continuing treatment of the diagnosis listed. The above information is true and accurate reflection of patient's current condition. Confidential - Redisclosure prohibited without a patient's written consent.
--- NOTE | 2017-03-19 16:38 | Electrocardiograph Report ---
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
[2017-03-19] MEDS: *HR* Rivaroxaban 15 MG TABLET PO SCH (16:48)
[2017-03-19] MEDS: cefTRIAXone 1,000 MG in Water for inj. (sterile) 20 ML 10 ML IVP SCH (22:19)
[2017-03-20] MEDS: Aspirin Enteric Coated 81 MG Tablet PO SCH (07:27)
[2017-03-20] MEDS: Furosemide 20 MG TABLET PO SCH ×2 (07:27→16:47)
[2017-03-20] MEDS: Cholecalciferol (D-3) 1,000 UNIT TABLET PO SCH (07:28)
[2017-03-20] MEDS: Metoprolol XL (24 HR) Succ 25 MG TAB.ER.24H PO SCH (07:28)
[2017-03-20] MEDS: Gabapentin 100 MG CAPSULE PO SCH ×2 (07:28→13:58)
[2017-03-20] MEDS: *HR* OxyCODONE/APAP 10/325 TABLET PO PRN (11:43)
[2017-03-20] MEDS: *HR* Digoxin 0.125 MG TABLET PO SCH (11:44)
[2017-03-20 16:01] VITALS: BP 101/69
[2017-03-20] MEDS: *HR* Rivaroxaban 15 MG TABLET PO SCH (16:47)
--- NOTE | 2017-03-20 17:15 | Internal Med Progress Note ---
Date of Encounter: 03/20/17 Time of Encounter: 09:00 - Assessment and plan (1) CHF exacerbation Current Visit: Yes Status: Acute Qualifiers: Qualified Code(s): I50.23 - Acute on chronic systolic (congestive) heart failure (2) Anemia Current Visit: Yes Status: Chronic Assessment and plan: Microcytic anemia; iron profile shows iron deficiency, started on oral ferrous sulfate supplements; stool occult blood negative; serum Vit B12 and folate levels normal; monitor Hb closely; Qualifiers: Anemia type: iron deficiency Iron deficiency anemia type: unspecified iron deficiency Qualified Code(s): D50.9 - Iron deficiency anemia, unspecified (3) Cellulitis Current Visit: Yes Status: Acute Assessment and plan: empirically treated with IV Rocephin for left breast cellulitis. Qualifiers: Site of cellulitis: other site Qualified Code(s): L03.818 - Cellulitis of other sites (4) Afib Current Visit: Yes Status: Chronic Assessment and plan: Continue digoxin and beta marianna. Long-term anticoagulation with Xarelto. Qualifiers: Atrial fibrillation type: chronic Qualified Code(s): I48.2 - Chronic atrial fibrillation (5) COPD (chronic obstructive pulmonary disease) Current Visit: Yes Status: Chronic Assessment and plan: Not in acute exacerbation. continue home meds Qualifiers: COPD type: unspecified COPD Qualified Code(s): J44.9 - Chronic obstructive pulmonary disease, unspecified (6) HTN (hypertension) Current Visit: Yes Status: Chronic Assessment and plan: continue home meds Qualifiers: Hypertension type: essential hypertension Qualified Code(s): I10 - Essential (primary) hypertension (7) Breast edema Current Visit: Yes Status: Acute Assessment and plan: Cellulitis versus lymphangitis. diagnostic mammogram showed no focal breast malignancy. There was unilateral left breast parenchymal changes present. edema vs. possible inflammatory process such as mastitis. follow up MRI recommended. (8) Chronic respiratory failure Current Visit: Yes Status: Chronic Assessment and plan: secondary to COPD. patient states she wears 4L oxygen at home. continue oxygen Qualifiers: Respiratory failure complication: hypoxia Qualified Code(s): J96.11 - Chronic respiratory failure with hypoxia (9) DVT prophylaxis Current Visit: Yes Status: Acute Assessment and plan: continue Xarelto - Subjective Interval history: 71F evaluated at bedside. patietn denies nausea, vomiting, diarrhea, fever, chills, chest pain, shortness of breath. she denies any new problems today. - Constitutional Vitals: Temp Pulse Resp BP Pulse Ox 98.4 F 63 16 101/69 96 03/20/17 15:59 03/20/17 15:59 03/20/17 15:59 03/20/17 15:59 03/20/17 15:59 General appearance: Present: A&O X 3, no acute distress, answers questions appropriately - Head Head exam: Present: atraumatic, normocephalic - Neck Neck exam general surgery: Present: supple, trachea midline - Respiratory Additional comments: mild bibasilar rales present. left breast mildly erythematous with mild swelling. - Cardiovascular Cardiovascular exam: Present: RRR, +S1, +S2 - Extremities Exam Extremities exam: Absent: cyanotic, pedal edema Internal Medicine: Result - Labs CBC & Chem 7: 03/16/17 05:21 03/19/17 05:33 - ABG Interpretation ABG results: PT/INR, D-dimer PT 20.1 Seconds (9.4-12.1) H 03/14/17 19:46 D-Dimer 2261 ng/mLFEU (0-500) H 03/14/17 19:46 Consult Discharge Plan - Plan Additional Instructions: F/up with PCP in 1-2 weeks Referrals: Hawk Sarmiento MD [Primary Care Provider] - Prescriptions: OxyCODONE/APAP 10/325 [Percocet 10/325 MG] 1 each PO Q6HR PRN 5 Days #15 tablet PRN Reason: Pain Cephalexin [Keflex] 500 mg PO Q8H #18 capsule
== END 2017-03-20 18:40 | DRG 292 ==
LOC: 3ANU 18:51 → EMEROO 18:51 → 3ANU 22:53 → SUATTDRO 03-15 00:06
PROVIDERS: ADMIT Family Medicine; ATTEND Internal Medicine

== ENCOUNTER 2017-08-07 11:18 | Inpatient (IN) ==
[2017-08-07 12:15] LABS: Basophils # 0.1 K/mcL (0.0-0.2); Basophils % 0.6 %; Eosinophils # 0.1 K/mcL (0.0-0.6); Eosinophils % 0.6 %; Hematocrit 39.5 % (35.3-44.9); Hemoglobin 12.1 g/dL (11.5-15.4); Immature Granulocytes % 0.3 % (0-4); Lymphocytes # 1.1 K/mcL (0.6-4.6); Lymphocytes % 12.8 %; Mean Corpuscular HGB Conc 30.6 g/dL (31.6-35.5); Mean Corpuscular Hemoglobin 26.9 pg (28.0-33.3); Mean Platelet Volume 11.8 fL (9.4-12.4); Monocytes # 0.6 K/mcL (0.0-1.3); Monocytes % 6.7 %; Platelet Count 204 K/mcL (140-400); Red Blood Count 4.49 M/mcL (3.82-4.97); Red Cell Distribution Width 16.4 % (11.5-14.5)
[2017-08-07 12:27] LABS: INR 2.2; Prothrombin Time 24.4 Seconds (9.4-12.1)
[2017-08-07 12:30] LABS: Activated Partial Thrombo Time 36.8 Seconds (26.0-36.0)
[2017-08-07 12:38] LABS: Troponin I 0.03 ng/mL (< 0.04)
[2017-08-07 12:39] LABS: BUN/Creatinine Ratio 13 (6-26); Blood Urea Nitrogen 10 mg/dL (8-23); Calcium 9.8 mg/dL (8.6-10.3); Carbon Dioxide 36 mEq/L (23-29); Chloride 100 mEq/L (98-107); Glucose 111 mg/dL (70-105); Osmolality,Calculated 292 (280-300); Sodium 141 mEq/L (136-145); eGFR For African Americans > 60 (> 60); eGFR For Non-African Americans > 60 (> 60)
[2017-08-07 13:07] LABS: Bilirubin,Urine Negative (Negative); Blood,Urine Negative (Negative); Clarity,Urine Clear (Clear); Color,Urine Yellow (Yellow); Glucose,Urine (UA) Normal (Normal); Ketones,Urine Negative (Negative); Leukocyte Esterase,Urine Negative (Negative); Nitrite,Urine Negative (Negative); Protein,Urine Negative (Neg-Trace); Specific Gravity,Urine 1.012 (1.010-1.025); Urobilinogen,Urine Normal (Normal)
--- NOTE | 2017-08-07 13:30 | Emergency Department Note ---
Disposition Clinical Impression: Shortness of breath, Hypoxia Afib Qualifiers: Atrial fibrillation type: unspecified Qualified Code(s): I48.91 - Unspecified atrial fibrillation Fluid overload Qualifiers: Hypervolemia type: unspecified Qualified Code(s): E87.70 - Fluid overload, unspecified Disposition: Admitted As Inpatient Condition: Fair Referrals: Hawk Sarmiento MD [Primary Care Provider] - Time of Disposition: 15:11 General Adult HPI - General Chief complaint: ED Shortness of Breath/Dyspnea Stated complaint: ELISE Time Seen by Provider: 08/07/17 11:20 Source: patient, EMS Mode of arrival: ambulatory Limitations: no limitations Nursing Notes Reviewed: Yes Vital Signs Reviewed: Yes - History of Present Illness HPI Narrative: Patient presents emergency room by EMS for complaint of shortness of breath and fluid overload. Patient denies any trauma or injury. She is currently denying any chest pain fevers chills nausea vomiting or diarrhea. No headache or vision change. Patient has a history of congestive heart failure she thought that that might be going on here today. Onset (ago): Just [employer] Radiation: non-radiation Pain Severity: mild Pain Scale: 0 Consistency: constant Worsens with: rest Associated symptoms: Reports: shortness of breath Treatments Prior to Arrival: none - Related Data Home Medications Medication Instructions Recorded Confirmed Aspirin Enteric Coated [Aspirin EC] 81 mg PO QAM 12/14/14 03/14/17 Cholecalciferol (Vitamin D3) 10,000 unit PO MO 12/14/14 03/14/17 [Vitamin D3] Digoxin [Lanoxin] 0.125 mg PO 1200 12/14/14 03/14/17 Docusate [Colace] 100 mg PO BID 12/14/14 03/14/17 Duloxetine HCl [Cymbalta] 60 mg PO QAM 12/14/14 03/14/17 Gabapentin [Neurontin] 100 mg PO TID 12/14/14 03/14/17 Nitroglycerin 0.4 mg SL Q5MIN PRN 12/14/14 03/14/17 Omeprazole [PriLOSEC] 40 mg PO QAM 12/14/14 03/14/17 Simvastatin [Zocor] 40 mg PO HS 12/14/14 03/14/17 TraZODone 50 mg PO HS 12/14/14 03/14/17 Levothyroxine [Synthroid] 88 mcg PO QAM 03/24/15 03/14/17 Polyethylene Glycol 3350 [MiraLAX] 17 gm PO DAILY PRN 08/31/15 03/14/17 Metoprolol XL (24 HR) Succ [Toprol 25 mg PO DAILY 03/14/17 03/14/17 Xl] Previous Rx's Medication Instructions Recorded Cephalexin [Keflex] 500 mg PO Q8H #18 capsule 03/19/17 Ferrous Sulfate 325 mg PO BIDWM tablet 03/19/17 Furosemide [Lasix] 20 mg PO BIDDIURETIC tablet 03/19/17 Rivaroxaban [Xarelto] 15 mg PO 1700 tablet 03/19/17 OxyCODONE/APAP 10/325 [Percocet 1 each PO Q6HR PRN 5 Days #15 03/20/17 10/325 MG] tablet Allergies Allergy/AdvReac Type Severity Reaction Status Date / Time Penicillins [PCN] Allergy Blister Verified 03/24/15 17:12 All systems ED: reviewed and negative except as stated. Review of Systems: As Per HPI Constitutional: Denies: fever, chills Cardiovascular: Reports: dyspnea on exertion, orthopnea, edema. Denies: chest pain, palpitations Respiratory: Reports: dyspnea. Denies: cough, wheezes, hemoptysis Gastrointestinal: Denies: abdominal pain, nausea, vomiting, diarrhea Genitourinary: Denies: urgency, dysuria Musculoskeletal: Denies: back pain, neck pain Integumentary: Denies: rash Neurological: Denies: headache Past Medical History - Past Medical History Attestation: Yes The following information was validated with the patient. Source: patient Medical history: Reports: arthritis, atrial fibrillation, CHF, COPD, GERD, hyperlipidemia, hypertension, thyroid disease, other Surgical history: Reports: orthopedic, other, pacemaker/AICD Psychiatric history: Reports: anxiety, depression - Social History Smoking Status: Never smoker Smokeless Tobacco Status: No Alcohol use: Reports: none Drug use: Reports: none Physical Exam - General Limitations: no limitations General appearance: alert, in no apparent distress - Head Head exam: atraumatic, normocephalic, normal inspection - ENT ENT exam: normal exam, normal oropharynx, mucous membranes moist - Neck Neck exam: Present: normal inspection, full ROM, trachea midline - Chest Chest inspection: Present: normal inspection, symmetric chest wall rise - Respiratory Respiratory exam: Present: normal lung sounds bilaterally - Cardiovascular Cardiovascular exam: Present: regular rate, normal rhythm, normal heart sounds - Abdominal Exam Abdominal exam: Present: soft, Non-Tender. Absent: tenderness, distention, guarding, rebound, rigidity - Extremities Exam Extremities exam: Present: normal inspection, full ROM, normal capillary refill. Absent: tenderness, pedal edema - Back Exam Back exam: Present: normal inspection - Neurological Exam Neurological exam: Present: alert, oriented X3, CN II-XII intact, normal gait - Skin Skin exam: Present: warm, dry, intact, normal color Course Course Narrative: Patient seen and examined some arrival by EMS. See history of present illness. 71-year-old female presents emergency room from home for evaluation of shortness of breath and hypoxia. Patient called the squad today to be evaluated secondary to difficulty with walking and shortness of breath. Patient 's pulse ox on arrival was in the low 80s. She does typically use 3 L of oxygen at home secondary to chronic respiratory related issues and congestive heart failure. Patient denies any history of COPD or emphysema. Vital signs reviewed on presentation shows stable heart rate as well as blood pressure and pulse ox. Patient is currently on 4 L on arrival. Vital signs are otherwise unremarkable. Patient does have a pacemaker in place. Is atraumatic pupils are round reactive oropharynx is patent trachea is midline lungs are clear heart is regular abdomen soft nontender nondistended. She does not have any acute signs of pitting edema or tremors. There is no signs of skin deterioration rash or redness. Head is atraumatic patient shows no signs of trauma or injury. Patient is concerning for fluid overload secondary to the exertional conversational dyspnea. While I was talking with her at the bedside her pulse ox to drop to 82 distal wrist conversation on her typical 4 L of oxygen. Patient will be evaluated with chest x-ray CBC chemistry EKG BNP troponin and chest x-ray. Disposition pending the full workup and treatment course. Patient does not require breathing treatments or steroids at this time. - Reevaluation(s) Reevaluation #1: Patient's chest x-ray shows stable presentation with right-sided pulmonary congestion that does appear to be greatly resolved in comparison the past. Patient's BNP is elevated at 356 which is slightly better than her previous as well for April or March. Troponin is negative labs otherwise unremarkable. Patient was conversationally dyspneic as well as hypoxic multiple times during the treatment course. Patient does not feel safe to go home and cannot walk because she gets so short of breath physician is going to fall. Patient also has been urinating on herself. 40 mg of Lasix was given by EMS and transported despite no other active presentation this point. Patient will be admitted. Discussion was had with the hospitalist Dr. rodriguez and he had no other recommendations or concerns at this time. Time: 15:09 Vital Signs Temperature 98.3 F 08/07/17 11:23 Pulse Rate 70 08/07/17 11:23 Respiratory Rate 18 08/07/17 11:23 Blood Pressure 108/66 08/07/17 11:23 O2 Sat by Pulse Oximetry 95 08/07/17 11:23 Temperature 98.3 F 08/07/17 11:23 Pulse Rate 70 08/07/17 11:23 Respiratory Rate 18 08/07/17 11:23 Blood Pressure 108/66 08/07/17 11:23 O2 Sat by Pulse Oximetry 97 08/07/17 11:33 Oxygen Delivery Oxygen Delivery Room Air Medical Decision Making - MDM Narrative Medical decision making narrative: Shortness of breath, hypoxia, oxygen dependent - Medical Records Medical records reviewed: Yes I reviewed the patient's medical records. - Lab Data Lab results reviewed: Yes I reviewed the patient's lab results. Result diagrams: 08/07/17 11:45 08/07/17 11:45 Lab Results 08/07/17 08/07/17 08/07/17 Range/Units 11:45 11:45 11:45 WBC 8.8 (4.3-11.1) K/mcL RBC 4.49 (3.82-4.97) M/mcL Hgb 12.1 (11.5-15.4) g/dL Hct 39.5 (35.3-44.9) % MCV 88.0 (83.0-100.0) fL MCH 26.9 L (28.0-33.3) pg MCHC 30.6 L (31.6-35.5) g/dL RDW 16.4 H (11.5-14.5) % Plt Count 204 (140-400) K/mcL MPV 11.8 (9.4-12.4) fL Immature Gran % 0.3 (0-4) % Seg Neutrophils % 79.0 % Lymphocytes % 12.8 % Monocytes % 6.7 % Eosinophils % 0.6 % Basophils % 0.6 % Neutrophils # 7.0 (1.6-8.9) K/mcL Lymphocytes # 1.1 (0.6-4.6) K/mcL Monocytes # 0.6 (0.0-1.3) K/mcL Eosinophils # 0.1 (0.0-0.6) K/mcL Basophils # 0.1 (0.0-0.2) K/mcL PT (9.4-12.1) Seconds INR APTT (26.0-36.0) Seconds Sodium 141 (136-145) mEq/L Potassium 4.0 (3.5-5.1) mEq/L Chloride 100 (98-107) mEq/L Carbon Dioxide 36 H (23-29) mEq/L BUN 10 (8-23) mg/dL Creatinine 0.75 (0.60-1.20) mg/dL Est GFR ( Amer) > 60 (> 60) Est GFR (Non-Af Amer) > 60 (> 60) BUN/Creatinine Ratio 13 (6-26) Glucose 111 H (70-105) mg/dL Calculated Osmolality 292 (280-300) Lactic Acid 0.9 (0.5-2.2) mmol/L Calcium 9.8 (8.6-10.3) mg/dL Troponin I 0.03 (< 0.04) ng/mL B-Natriuretic Peptide (Less than 100) pg/mL Urine Color (Yellow) Urine Clarity (Clear) Urine pH (5.0-8.0) pH Units Ur Specific [place] (1.010-1.025) Urine Protein (Neg-Trace) mg/dL Urine Glucose (UA) (Normal) mg/dL Urine Ketones (Negative) mg/dL Urine Blood (Negative) Urine Nitrite (Negative) Urine Bilirubin (Negative) Urine Urobilinogen (Normal) mg/dL Ur Leukocyte Esterase (Negative) Ur Culture Indicated? (NO) 08/07/17 08/07/17 08/07/17 Range/Units 11:45 11:45 12:54 WBC (4.3-11.1) K/mcL RBC (3.82-4.97) M/mcL Hgb (11.5-15.4) g/dL Hct (35.3-44.9) % MCV (83.0-100.0) fL MCH (28.0-33.3) pg MCHC (31.6-35.5) g/dL RDW (11.5-14.5) % Plt Count (140-400) K/mcL MPV (9.4-12.4) fL Immature Gran % (0-4) % Seg Neutrophils % % Lymphocytes % % Monocytes % % Eosinophils % % Basophils % % Neutrophils # (1.6-8.9) K/mcL Lymphocytes # (0.6-4.6) K/mcL Monocytes # (0.0-1.3) K/mcL Eosinophils # (0.0-0.6) K/mcL Basophils # (0.0-0.2) K/mcL PT 24.4 H (9.4-12.1) Seconds INR 2.2 APTT 36.8 H (26.0-36.0) Seconds Sodium (136-145) mEq/L Potassium (3.5-5.1) mEq/L Chloride (98-107) mEq/L Carbon Dioxide (23-29) mEq/L BUN (8-23) mg/dL Creatinine (0.60-1.20) mg/dL Est GFR ( Amer) (> 60) Est GFR (Non-Af Amer) (> 60) BUN/Creatinine Ratio (6-26) Glucose (70-105) mg/dL Calculated Osmolality (280-300) Lactic Acid (0.5-2.2) mmol/L Calcium (8.6-10.3) mg/dL Troponin I (< 0.04) ng/mL B-Natriuretic Peptide 356 H (Less than 100) pg/mL Urine Color Yellow (Yellow) Urine Clarity Clear (Clear) Urine pH 8.0 (5.0-8.0) pH Units Ur Specific [place] 1.012 (1.010-1.025) Urine Protein Negative (Neg-Trace) mg/dL Urine Glucose (UA) Normal (Normal) mg/dL Urine Ketones Negative (Negative) mg/dL Urine Blood Negative (Negative) Urine Nitrite Negative (Negative) Urine Bilirubin Negative (Negative) Urine Urobilinogen Normal (Normal) mg/dL Ur Leukocyte Esterase Negative (Negative) Ur Culture Indicated? NO (NO) - Radiology Data Radiology results reviewed: Yes I reviewed the patient's radiology results. Chest x-ray shows mild pulmonary congestion but no overt signs of fluid overload - EKG Data EKG #1 EKG attestation: Yes I reviewed and interpreted this EKG. EKG results narrative: EKG shows atrially and ventricularly paced rhythm. Is compared to previous EKG that shows stable presentation no acute signs of ST segment elevation or abnormality. No morphology changes noted at this time. Intervals are remaining stable.
[2017-08-07 14:52] LABS: Alanine Aminotransferase 7 Units/L (7-52); Albumin 3.7 g/dL (3.5-5.7); Alkaline Phosphatase 67 Units/L (34-104); Aspartate Amino Transferase 15 Units/L (13-39); Bilirubin,Direct 0.5 mg/dL (0.0-0.2); Bilirubin,Indirect 0.7 mg/dL (0.0-1.2); Bilirubin,Total 1.2 mg/dL (0.3-1.0); Globulin 3.6 g/dL (2.4-3.5); Total Protein 7.3 g/dL (6.4-8.9)
[2017-08-07] MEDS ORDERED: Acetaminophen 325 MG TABLET PO PRN (16:27)
[2017-08-07] MEDS ORDERED: Naloxone 0.4 MG/ML INJ IVP PRN (16:27)
[2017-08-07] MEDS ORDERED: Nitroglycerin 0.4 MG TAB.SUBL SL PRN (16:32)
--- NOTE | 2017-08-07 17:09 | Internal Med History&Physical ---
<Guillermo Corona Dung - Last Filed: 08/07/17 17:45> Date of Encounter: 08/07/17 Time of Encounter: 16:30 Internal Medicine - H&P: HPI Chief complaint: SOB/Dyspnea Admitted From: Emergency Dept Plans for Post Hospital Care: Home History of present illness: Ms. Rutherford is a 71 year old female w/PMH of arthritis, atrial fibrillation on Xarelto, CHF, COPD, GERD, HLD, HTN, and thyroid disease presents from the ED w/ CC of SOB/Dyspnea for the past 2-3 days that the pt. reports became much worse today. Pt. reports sx become much worse w/exertion. States she uses home O2 @ 3- 4L. Pt. reports that the 20 mg PO lasix BID is not working well d/t increasing pedal edema. Pt. reports she has never smoked but her smoked 4 PPD and her son currently smokes. No alleviating factors. Pt. reports bilateral weakness in LEs but denies recent illness, fever, chills, nausea, vomiting, changes in vision, headache, chest pain, cough, chest congestion, unusual bleeding, abdominal pain, diarrhea, constipation, dizziness, lightheadedness, numbness, tingling, pre-syncope, or syncope. Past Med Surg Social Fam HX - Past Medical History Source: patient, old records reviewed, obtained from family Medical history: arthritis, atrial fibrillation, CHF, COPD, GERD, hyperlipidemia , hypertension, thyroid disease, other Additional medical history: anemia Psychiatric history: anxiety, depression - Past Surgical History Surgical History: orthopedic, other, pacemaker/AICD Additional surgical history: R shoulder complete replacement, knee replacement - Social History Smoking Status: 2nd Hand Smoke Exposure Smokeless Tobacco Status: No Alcohol use: none Drug use: none Current living situation: Home, With Family Activity Level: Uses cane/walker Recent Out of Country Travel Within the Last 8 Weeks: No Exposure or Possible Exposure to Illness During Travel: No - Family History Father Race: Family Member Ethnicity: Non- Living Status: Age at : 61 Cause of : CA Hx Family Cardiac Disorders: Yes (massive [place]) Mother Race: Family Member Ethnicity: Non- Living Status: Age at : 84 Cause of : Kidney failure Hx Family Genitourinary Disorders: Yes (Kidney failure) Brother Race: Family Member Ethnicity: Non- Living Status: Still Living Hx Family Medical Disorders: No Sister Race: Family Member Ethnicity: Non- Living Status: Still Living Hx Family Medical Disorders: No Internal Medicine - H&P: Meds Aspirin Enteric Coated [Aspirin EC] 81 mg PO QAM 12/14/14 [History] Duloxetine HCl [Cymbalta] 60 mg PO QAM 12/14/14 [History] Levothyroxine [Synthroid] 88 mcg PO QAM 03/24/15 [History] Polyethylene Glycol 3350 [MiraLAX] 17 gm PO DAILY PRN 08/31/15 [History] Metoprolol XL (24 HR) Succ [Toprol Xl] 25 mg PO DAILY 03/14/17 [History] OxyCODONE/APAP 10/325 [Percocet 10/325 MG] 1 each PO Q6HR PRN 5 Days #15 tablet 03/20/17 [Rx] Ascorbic Acid [Vitamin C] 500 mg PO DAILY 08/07/17 [History] Cholecalciferol (Vitamin D3) [Vitamin D3] 10,000 unit PO MO 08/07/17 [History] Digoxin [Lanoxin] 125 mcg PO 1200 08/07/17 [History] Docusate [Colace] 100 mg PO BID 08/07/17 [History] Ferrous Sulfate 325 mg PO DAILY 08/07/17 [History] Furosemide [Lasix] 20 mg PO BID 08/07/17 [History] Gabapentin [Neurontin] 100 mg PO TID 08/07/17 [History] Mv-Mn/FA/Vit K/Lycop/Lut/Coq10 [Daily Multivitamin Capsule] 1 cap PO DAILY 08/07 [History] Nitroglycerin [Nitrostat] 0.4 mg SL Q5MIN PRN 08/07/17 [History] Omeprazole [PriLOSEC] 40 mg PO QAM 08/07/17 [History] Rivaroxaban [Xarelto] 20 mg PO 1700 08/07/17 [History] Sertraline [Zoloft] 50 mg PO DAILY 08/07/17 [History] Simvastatin [Zocor] 40 mg PO DAILY 08/07/17 [History] traZODone [TraZODone] 50 mg PO HS 08/07/17 [History] 3 Allergy/AdvReac Type Severity Reaction Status Date / Time Penicillins [PCN] Allergy Blister Verified 08/07/17 14:46 All Systems PM: A 10-system review of systems was performed and is negative for pertinent findings except as documented above in the HPI. - Constitutional Constitutional: as per HPI, falls, weakness (Bilateral LEs), no chills, no fever (s), no night sweats - EENT Eyes: no change in vision, no discharge, no pain, no photophobia Ears: no ear discharge, no ear pain, no tinnitus Nose, mouth and throat: no dysphagia, no nasal discharge, no neck pain, no sore throat - Breasts Breasts: as per HPI - Cardiovascular Cardiovascular ROS IM: as per HPI, dyspnea, dyspnea on exertion, edema, irregular heart rhythm, orthopnea, no chest pain, no diaphoresis, no lightheadedness, no palpitations, no syncope - Respiratory Respiratory: as per HPI, dyspnea, dyspnea on exertion, no cough, no wheezing, no excessive phlegm production - Gastrointestinal Gastrointestinal: no abdominal pain, no diarrhea, no hematemesis, no hematochezia, no melena, no nausea, no vomiting - Genitourinary Genitourinary: no change in urinary stream, no dysuria, no flank pain, no hematuria Menstruation: as per HPI - Musculoskeletal Musculoskeletal ROS IM: as per HPI, arthralgias, no numbness, no tingling - Integumentary Integumentary IM: as per HPI, no rash, no unusual bruising - Neurological Neurological ROS: as per HPI, weakness (Bilateral LEs), no confusion, no convulsions, no focal weakness, no numbness, no tingling, no tremor(s) - Psychiatric Psychiatric: as per HPI, anxiety, depression - Endocrine Endocrine IM: as per HPI - Hematologic/Lymphatic Hematologic/Lymphatic: no easy bruising - Allergic/Immunologic Allergic/Immunologic: as per HPI - Constitutional Vitals: Temp Pulse Resp BP Pulse Ox 97.4 F L 71 18 129/84 98 08/07/17 15:43 08/07/17 15:43 08/07/17 15:43 08/07/17 15:43 08/07/17 15:50 General appearance: Present: cooperative, mild distress (SOB), A&O X 3, pleasant , obese, answers questions appropriately - Head Head exam: Present: atraumatic, normocephalic - Eye Eye exam: Present: PERRL, conjuntiva pink, sclera anicteric Pupils: Present: PERRL - ENT ENT exam: Present: normal exam - Neck Neck exam general surgery: Present: normal inspection, supple, trachea midline. Absent: lymphadenopathy - Respiratory Respiratory exam: Present: CTAB. Absent: accessory muscle use, rales, rhonchi, wheezes - Cardiovascular Cardiovascular exam: Present: irregular rhythm - GI/Abdominal GI/Abdominal exam: Present: normal bowel sounds, soft, no peritoneal signs. Absent: distended, tenderness - Rectal Rectal exam: Present: deferred - Additional comments: exam deferred. - Extremities Exam Extremities exam: Present: pedal edema, warm, radial pulses palpable and symmetrical. Absent: calf tenderness, cyanotic - Back Exam Back exam: Present: normal inspection - Neurological Exam Neurological exam: Present: alert, CN II-XII intact, oriented X3, no focal deficits. Absent: pronater drift, facial droop, speech deficit - Psychiatric Psychiatric exam: Present: normal affect, normal mood - Skin Skin exam: Present: dry, intact Internal Med - H&P Results - Labs CBC & Chem 7: 08/07/17 11:45 08/07/17 11:45 - EKG Data Prior EKG available for review: yes EKG comments: 08/07/17 17:16 EKG dated 03/17/17 shows demand ventricular pacing, intraventricular conduction delay, ST deviation and moderate T-wave abnormality (consider anterolateral ischemia), ST deviation and moderate T-wave abnormality (consider inferior ischemia). EKG dated 08/07/17 shows electronic atrial pacemaker and electronic ventricular pacemaker. - Diagnostic Studies Chest x-ray Additional comments: Impressions Chest X-Ray 08/07/17 11:30 IMPRESSION: 1. Minimal bibasilar atelectasis. 2. Pulmonary vascular congestion and mild cardiomegaly. D/ / Michoacano Kim MD / [place]ocaano Kim MD Interpreting Provider: Michoacano Kim MD - Assessment and plan (1) Acute exacerbation of CHF (congestive heart failure) Current Visit: Yes Status: Acute Assessment and plan: Acute on chronic exacerbation of CHF. Pt. reports sx for 2-3 days which worsened today. Pt. reports increasing pedal edema of LEs. Hx of CHF. Echocardiogram on 03/15/17 showed LVEF of 50%, normal chamber size and wall thickness, LV function is low normal, atypical septal motion consistent with paced rhythm, indeterminate diastolic function, normal right ventricular structure and function, severely dilated left atrium, moderate to severely dilated right atrium, moderate tricuspid regurgitation, severe pulmonary hypertension, estimated RSVP SPS 64 mmHg. The device lead was visualized in the right atrium and right ventricle. Continuous cardiac telemetry. Supplemental O2 w/titration and SpO2 monitoring. Xopenex IH. Cardiac diet w/1.5L daily fluid restriction. Will hold pts. 20 mg PO lasix BID and administer 40 mg IVP lasix BID. Monitor I&O and daily weight. Monitor pt. and f/u labs. Pt. discussed w/ Dr. Gray who agrees w/plan of care. Pt. is high risk for respiratory and/ or cardiac distress and further morbidity based on current sx, hx of recurrent CHF exacerbations, ineffective tx at home, respiratory distress, hx; and risk factors of atrial fibrillation, COPD, HLD, HTN, and exposure to secondhand smoke. Observation. Qualifiers: Heart failure type: unspecified Qualified Code(s): I50.9 - Heart failure, unspecified (2) Shortness of breath Current Visit: Yes Status: Acute Assessment and plan: Acute on chronic SOB/dyspnea r/t current CHF exacerbation. CXR today shows minimal bibasilar atelectasis and pulmonary vascular congestion with mild cardiomegaly. Supplemental O2 w/titration and SpO2 monitoring. Xopenex IH. (3) Atrial fibrillation Current Visit: Yes Status: Chronic Assessment and plan: Hx of chronic atrial fibrillation. Pt. has Pacemaker in place. Continuous cardiac telemetry. Continue pts. aspirin and Xarelto. Qualifiers: Atrial fibrillation type: chronic Qualified Code(s): I48.2 - Chronic atrial fibrillation (4) GERD (gastroesophageal reflux disease) Current Visit: Yes Status: Chronic Assessment and plan: Hx of chronic GERD. IVP Zofran 4 mg Q6HR for N/V. Continue pts. PO Prilosec. Qualifiers: Esophagitis presence: esophagitis presence not specified Qualified Code(s) : K21.9 - Gastro-esophageal reflux disease without esophagitis (5) HLD (hyperlipidemia) Current Visit: Yes Status: Chronic Assessment and plan: Hx of chronic HLD. Lipid panel in a.m. labs. Continue patient's simvastatin. Qualifiers: Hyperlipidemia type: pure hypercholesterolemia Qualified Code(s): E78.00 - Pure hypercholesterolemia, unspecified; E78.0 - Pure hypercholesterolemia (6) HTN (hypertension) Current Visit: Yes Status: Chronic Assessment and plan: Hx of chronic HTN. Monitor pt. and VS. Continue pts. Metoprolol. Qualifiers: Hypertension type: essential hypertension Qualified Code(s): I10 - Essential (primary) hypertension (7) Hypothyroidism Current Visit: Yes Status: Chronic Assessment and plan: Hx of chronic hypothyroidism. TSH and Free T4 in a.m. labs. Continue pts. Synthroid. Qualifiers: Hypothyroidism type: acquired Qualified Code(s): E03.9 - Hypothyroidism, unspecified (8) COPD (chronic obstructive pulmonary disease) Current Visit: Yes Status: Chronic Assessment and plan: Hx of chronic COPD. Stable. Pt. denies ever smoking but was exposed to second- hand smoke from smoking 4 PPD and son currently smoking. Supplemental O2 w/titration and SpO2 monitoring. Xopenex IH. Qualifiers: COPD type: unspecified COPD Qualified Code(s): J44.9 - Chronic obstructive pulmonary disease, unspecified (9) Anxiety and depression Current Visit: Yes Status: Chronic Assessment and plan: Hx of chronic anxiety and depression. Continue pts. Zoloft, trazodone, Cymbalta. (10) Weakness Current Visit: Yes Status: Chronic Assessment and plan: Hx of chronic weakness in bilateral LEs. Pt. reports [id number] status of left knee. Weakness is currently exacerbated by current CHF exacerbation. Falls/ safety precautions. Up with assist only. (11) DVT prophylaxis Current Visit: Yes Status: Acute Assessment and plan: Continue pts. Xarelto for DVT prophylaxis. Monitor pt. for signs of bleeding. - Time Spent With Patient Total time spent is greater than 50% in coordination of care (as documented) at patient's floor/unit and/or counseling patient: Greater than 35 minutes <Ember Gray - Last Filed: 08/07/17 21:28> Date of Encounter: 08/07/17 Internal Medicine - H&P: HPI History of present illness: Ms. Krish is a 71 year old female All Systems PM: A 10-system review of systems was performed and is negative for pertinent findings except as documented above in the HPI. - Constitutional Vitals: Temp Pulse Resp BP Pulse Ox 97.6 F 78 16 83/53 96 08/07/17 18:55 08/07/17 18:55 08/07/17 18:55 08/07/17 18:55 08/07/17 18:55 Internal Med - H&P Results - Labs CBC & Chem 7: 08/07/17 11:45 08/07/17 11:45 - Attending Attestation Seen and assessed. Patient is being managed for acute CHF exacerbation. Agree with plan per DIRECTOR HOME - Assessment and plan (1) COPD (chronic obstructive pulmonary disease) Current Visit: Yes Status: Chronic Qualifiers: COPD type: unspecified COPD Qualified Code(s): J44.9 - Chronic obstructive pulmonary disease, unspecified (2) Hypothyroidism Current Visit: Yes Status: Chronic Qualifiers: Hypothyroidism type: acquired Qualified Code(s): E03.9 - Hypothyroidism, unspecified (3) DVT prophylaxis Current Visit: Yes Status: Acute (4) Shortness of breath Current Visit: Yes Status: Acute (5) Acute exacerbation of CHF (congestive heart failure) Current Visit: Yes Status: Acute Qualifiers: Heart failure type: unspecified Qualified Code(s): I50.9 - Heart failure, unspecified (6) Atrial fibrillation Current Visit: Yes Status: Chronic Qualifiers: Atrial fibrillation type: chronic Qualified Code(s): I48.2 - Chronic atrial fibrillation (7) GERD (gastroesophageal reflux disease) Current Visit: Yes Status: Chronic Qualifiers: Esophagitis presence: esophagitis presence not specified Qualified Code(s) : K21.9 - Gastro-esophageal reflux disease without esophagitis (8) HLD (hyperlipidemia) Current Visit: Yes Status: Chronic Qualifiers: Hyperlipidemia type: pure hypercholesterolemia Qualified Code(s): E78.00 - Pure hypercholesterolemia, unspecified; E78.0 - Pure hypercholesterolemia (9) HTN (hypertension) Current Visit: Yes Status: Chronic Qualifiers: Hypertension type: essential hypertension Qualified Code(s): I10 - Essential (primary) hypertension (10) Anxiety and depression Current Visit: Yes Status: Chronic (11) Weakness Current Visit: Yes Status: Chronic - Time Spent With Patient Total time spent is greater than 50% in coordination of care (as documented) at patient's floor/unit and/or counseling patient:
[2017-08-07] MEDS ORDERED: Ondansetron 4 MG/2 ML VIAL IVP PRN (17:28)
[2017-08-07] MEDS: *HR* Rivaroxaban 10 MG TABLET PO SCH (17:53)
[2017-08-07] MEDS: Furosemide 40 MG/4 ML VIAL IVP SCH (17:53)
[2017-08-07] MEDS: *HR* OxyCODONE/APAP 10/325 TABLET PO PRN (17:59)
[2017-08-07] MEDS: Levalbuterol Neb 1.25 MG/3 ML IH SCH (21:40)
[2017-08-07] MEDS: traZODone 50 MG TABLET PO SCH (21:54)
[2017-08-07] MEDS: Gabapentin 100 MG CAPSULE PO SCH (21:54)
[2017-08-08] MEDS: Levalbuterol Neb 1.25 MG/3 ML IH SCH ×4 (03:39→21:24)
[2017-08-08 04:39] LABS: Basophils # 0.1 K/mcL (0.0-0.2); Basophils % 0.7 %; Eosinophils # 0.1 K/mcL (0.0-0.6); Eosinophils % 1.7 %; Hematocrit 34.5 % (35.3-44.9); Hemoglobin 10.7 g/dL (11.5-15.4); Immature Granulocytes % 0.4 % (0-4); Lymphocytes % 27.5 %; Mean Corpuscular Hemoglobin 26.6 pg (28.0-33.3); Mean Corpuscular Volume 85.8 fL (83.0-100.0); Mean Platelet Volume 11.4 fL (9.4-12.4); Monocytes # 0.8 K/mcL (0.0-1.3); Monocytes % 10.5 %; Neutrophils # 4.2 K/mcL (1.6-8.9); Platelet Count 181 K/mcL (140-400); Red Blood Count 4.02 M/mcL (3.82-4.97); Red Cell Distribution Width 16.4 % (11.5-14.5); Segmented Neutrophils % 59.2 %
[2017-08-08 04:49] LABS: Activated Partial Thrombo Time 39.4 Seconds (26.0-36.0)
[2017-08-08 04:50] LABS: INR 3.3; Prothrombin Time 37.3 Seconds (9.4-12.1)
[2017-08-08 05:03] LABS: Alanine Aminotransferase 6 Units/L (7-52); Albumin 3.4 g/dL (3.5-5.7); Albumin/Globulin Ratio 1.1 (1.1-2.2); Alkaline Phosphatase 60 Units/L (34-104); Aspartate Amino Transferase 13 Units/L (13-39); BUN/Creatinine Ratio 13 (6-26); Bilirubin,Total 1.3 mg/dL (0.3-1.0); Blood Urea Nitrogen 10 mg/dL (8-23); Calcium 9.4 mg/dL (8.6-10.3); Carbon Dioxide 35 mEq/L (23-29); Chloride 98 mEq/L (98-107); Chol/HDL Ratio 2.8 (0-4.9); Cholesterol 91 mg/dL (< 200); Globulin 3.2 g/dL (2.4-3.5); Glucose 95 mg/dL (70-105); HDL Cholesterol 32 mg/dL (40-59); LDL Cholesterol,Calculated 39 mg/dL (0-99); Magnesium 1.9 mg/dL (1.6-2.6); Osmolality,Calculated 289 (280-300); Potassium 3.4 mEq/L (3.5-5.1); Sodium 140 mEq/L (136-145); Total Protein 6.6 g/dL (6.4-8.9); Triglycerides 100 mg/dL (< 150); eGFR For African Americans > 60 (> 60); eGFR For Non-African Americans > 60 (> 60)
[2017-08-08 05:16] LABS: Thyroid Stimulating Hormone 2.271 mcIU/mL (0.340-5.600)
[2017-08-08] MEDS: Metoprolol XL (24 HR) Succ 25 MG TAB.ER.24H PO SCH (08:08)
[2017-08-08 08:12] LABS: Estimated Average Glucose 100 mg/dl; Hemoglobin A1C 5.1 %
[2017-08-08] MEDS: Furosemide 40 MG/4 ML VIAL IVP SCH ×2 (08:39→16:27)
[2017-08-08] MEDS: Aspirin Enteric Coated 81 MG Tablet PO SCH (08:47)
[2017-08-08] MEDS: Ascorbic Acid 500 MG TABLET PO SCH (08:47)
[2017-08-08] MEDS: Multivit/Ca/Min/Fe/FA 1 TAB TABLET PO SCH (08:48)
[2017-08-08] MEDS: Cholecalciferol (D-3) 1,000 UNIT TABLET PO SCH (08:48)
[2017-08-08] MEDS: Gabapentin 100 MG CAPSULE PO SCH ×3 (08:48→20:51)
[2017-08-08] MEDS ORDERED: *HR* Digoxin 0.125 MG TABLET PO SCH (09:00)
--- NOTE | 2017-08-08 09:02 | Pulmonology Consult Note ---
Date of Encounter: 08/08/17 Time of Encounter: 09:01 Assessment and Plan (1) Acute and chronic respiratory failure with hypoxia Current Visit: Yes Status: Acute Impression In conclusion this is a very pleasant 71-year-old woman with past medical history of heart failure with preserved ejection fraction and atrial fibrillation on long-term anticoagulation. She presents with acute on chronic hypoxic respiratory failure which I suspect is related to her underlying heart failure. She does have evidence of pulmonary hypertension on echocardiogram with right ventricular volume overload. Based upon her history of having CHF with dilated left atrium I suspect this is pulmonary venous hypertension related to heart failure with preserved ejection fraction. Although she carries a diagnosis of COPD the patient is a lifelong nonsmoker*no PFTs corroborating this diagnosis and this was not suggested by a CT angiogram that was performed in March of this year. Also on that CT angiogram there is no evidence of significant fibrotic changes suggestive of interstitial lung disease. Her imaging and the clinical presentation this time are also not consistent with an infectious etiology, she is also on long-term anticoagulation and is "religiously" compliant with this making the possibility of venous thromboembolism very unlikely and thus in general I doubt a primary pulmonary pathology. Overall picture is concerning for progressively worsening heart failure now [place] [employer] class III symptoms. Recs: - Agree with the formal consultation by cardiology and likely repeat echocardiogram -Continue supplemental oxygen saturation greater than 88% at all times -Recommend formal cardiology consultation for evaluation of heart failure. In general I recommend gentle diuresis as tolerated by blood pressure this may reflect low output state and she may benefit from inotropic support. Close monitoring of serum creatinine and electrolytes daily -If further concern exists for pulmonary arterial hypertension right heart catheterization can be performed by the cardiology service when they feel the patient is euvolemic otherwise based upon echocardiogram findings we are left with the diagnosis of pulmonary venous hypertension -She will need outpatient pulmonary function testing My impression and recommendations were related directly to the primary medicine attending Dr. Collier Thank you for this consultation please call with questions (2) (HFpEF) heart failure with preserved ejection fraction Current Visit: Yes Status: Acute (3) COPD (chronic obstructive pulmonary disease) Current Visit: Yes Status: Acute Qualifiers: Emphysema type: unspecified Qualified Code(s): J43.9 - Emphysema, unspecified (4) Pulmonary hypertension Current Visit: Yes Status: Acute History of Present Illness Consult date: 08/08/17 Requesting physician: Bairon Collier Reason for consult: hypoxemia Chief complaint: Difficulty in Breathing History of present illness: The patient is a 71-year-old woman with a past medical history of chronic hypoxic respiratory failure on 3 L nasal cannula O2 heart failure and atrial fibrillation status post PPM. She was initially evaluated and beginning of this year for heart failure and she states that since then she has had a steady decline and increasing dyspnea leading to She presented to the hospital yesterday for shortness of breath" fluid overload" she denies a chest pain cough or hemoptysis. She does endorse 3 pillow orthopnea. Exercise tolerance is very limited she states that she is basically sitting in the chair all day and even walking to the sink to do a few dishes is extremely difficult for her. In the emergency department pulse oximetry noted saturation in the low 80s and was bumped up to 4 L with improvement in saturation. She had to chest x-ray notable for pulmonary congestion with an elevated BNP to 356. EKG was notable for atrial ventricularly paced rhythm without signs of ST elevation Troponin was negative. She was given 40 mg Lasix and transferred to the general medical floor. Pulmonary was consulted for further evaluation of the patient's dyspnea. From a pulmonary perspective she is a lifelong nonsmoker with passive smoke exposure however. 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 Although she carries a diagnosis of COPD she states that she has never been told this. She also is compliant Xarelto for long-term anticoagulation of A. fib Past Med Surg Social Fam HX - Past Medical History Medical history: arthritis, atrial fibrillation, CHF, COPD, GERD, hyperlipidemia , hypertension, thyroid disease, other Additional medical history: anemia Psychiatric history: anxiety, depression - Past Surgical History Surgical History: orthopedic, other, pacemaker/AICD Additional surgical history: R shoulder complete replacement, knee replacement - Social History Smoking Status: 2nd Hand Smoke Exposure Smokeless Tobacco Status: No Alcohol use: none Drug use: none - Family History Mother Race: Family Member Ethnicity: Non- Living Status: Age at : 84 Cause of : Kidney failure Hx Family Genitourinary Disorders: Yes (Kidney failure) Brother Race: Family Member Ethnicity: Non- Living Status: Still Living Hx Family Medical Disorders: No Sister Race: Family Member Ethnicity: Non- Living Status: Still Living Hx Family Medical Disorders: No Father Race: Family Member Ethnicity: Non- Living Status: Age at : 61 Cause of : IN Hx Family Cardiac Disorders: Yes (massive [place]) Medications and Allergies Aspirin Enteric Coated [Aspirin EC] 81 mg PO QAM 12/14/14 [History] Duloxetine HCl [Cymbalta] 60 mg PO QAM 12/14/14 [History] Levothyroxine [Synthroid] 88 mcg PO QAM 03/24/15 [History] Polyethylene Glycol 3350 [MiraLAX] 17 gm PO DAILY PRN 08/31/15 [History] Metoprolol XL (24 HR) Succ [Toprol Xl] 25 mg PO DAILY 03/14/17 [History] OxyCODONE/APAP 10/325 [Percocet 10/325 MG] 1 each PO Q6HR PRN 5 Days #15 tablet 03/20/17 [Rx] Ascorbic Acid [Vitamin C] 500 mg PO DAILY 08/07/17 [History] Cholecalciferol (Vitamin D3) [Vitamin D3] 10,000 unit PO MO 08/07/17 [History] Digoxin [Lanoxin] 125 mcg PO 1200 08/07/17 [History] Docusate [Colace] 100 mg PO BID 08/07/17 [History] Ferrous Sulfate 325 mg PO DAILY 08/07/17 [History] Furosemide [Lasix] 20 mg PO BID 08/07/17 [History] Gabapentin [Neurontin] 100 mg PO TID 08/07/17 [History] Mv-Mn/FA/Vit K/Lycop/Lut/Coq10 [Daily Multivitamin Capsule] 1 cap PO DAILY 08/07 [History] Nitroglycerin [Nitrostat] 0.4 mg SL Q5MIN PRN 08/07/17 [History] Omeprazole [PriLOSEC] 40 mg PO QAM 08/07/17 [History] Rivaroxaban [Xarelto] 20 mg PO 1700 08/07/17 [History] Sertraline [Zoloft] 50 mg PO DAILY 08/07/17 [History] Simvastatin [Zocor] 40 mg PO DAILY 08/07/17 [History] traZODone [TraZODone] 50 mg PO HS 08/07/17 [History] 3 Allergy/AdvReac Type Severity Reaction Status Date / Time Penicillins [PCN] Allergy Blister Verified 08/07/17 14:46 All Systems: The remainder of the systems were reviewed and are negative Physical Examination Vital Signs: Vital Signs, Last 4 Hours Temp Pulse Resp BP Pulse Ox 08/08/17 07:05 98.1 F 116 18 89/54 96 General appearance: no acute distress Eyes: nonicteric Mallampati (class): 1 Neck: supple, JVD Effort: normal Auscultation: bilateral: rales Cardiovascular: regular rate and rhythm Gastrointestinal: normoactive bowel sounds, soft, non-tender Integumentary: normal Extremities: edema (Trace bilateral lower extremity edema ) Musculoskeletal: no deformities normal mental status, non-focal exam mood appropriate Results - Laboratory Findings CBC and BMP: 08/08/17 04:16 08/08/17 04:16 PT/INR, D-dimer PT 37.3 Seconds (9.4-12.1) H D 08/08/17 04:16 Abnormal lab findings: Abnormal lab results Hgb 10.7 g/dL (11.5-15.4) L 08/08/17 04:16 Hct 34.5 % (35.3-44.9) L 08/08/17 04:16 MCH 26.6 pg (28.0-33.3) L 08/08/17 04:16 MCHC 31.0 g/dL (31.6-35.5) L 08/08/17 04:16 RDW 16.4 % (11.5-14.5) H 08/08/17 04:16 PT 37.3 Seconds (9.4-12.1) H D 08/08/17 04:16 APTT 39.4 Seconds (26.0-36.0) H 08/08/17 04:16 Potassium 3.4 mEq/L (3.5-5.1) L 08/08/17 04:16 Carbon Dioxide 35 mEq/L (23-29) H 08/08/17 04:16 Total Bilirubin 1.3 mg/dL (0.3-1.0) H 08/08/17 04:16 Direct Bilirubin 0.5 mg/dL (0.0-0.2) H 08/07/17 11:45 ALT 6 Units/L (7-52) L 08/08/17 04:16 B-Natriuretic Peptide 356 pg/mL (Less than 100) H 08/07/17 11:45 Albumin 3.4 g/dL (3.5-5.7) L 08/08/17 04:16 HDL Cholesterol 32 mg/dL (40-59) L 08/08/17 04:16 Thyroxine (T4) 12.42 mcg/dL (5.50-11.00) H 08/08/17 04:16 - Diagnostic Findings Chest x-ray: report reviewed, image reviewed - Clinical Findings Intake & Output: Intake & Output 08/07/17 08/08/17 08/08/17 23:59 07:59 15:59 Intake Total 520 / 520 150 / 150 Output Total 300 / 300 Balance 220 / 220 150 / 150 Weight 88.9 kg Consult Discharge Plan - Plan Referrals: Hawk Sarmiento MD [Primary Care Provider] -
--- NOTE | 2017-08-08 12:09 | Cardiology Consult Note ---
<Hola Jacinto R - Last Filed: 08/08/17 12:36> Date of Encounter: 08/08/17 Time of Encounter: 12:07 Assessment and Plan (1) Acute exacerbation of CHF (congestive heart failure) Current Visit: Yes Status: Acute Suspect acute on chronic diastolic CHF. Vascular congestion on CXR. BNP only midly elevated 356 (lower than previous BNPs). Presented with symptoms of worsening dyspnea and LE edema. Reports compliance with low Na and fluid restriction, compliant with home Lasix. Discussed with Dr. Hilario Morley. Agree with IV diuresis as BP tolerates. Inotropic support not warranted currently. Pt had severe phtn on TTE 03/2017, est RVSP 64mmHg. Pulmonology following-- appreciate their recs. TTE 03/2017 EF low normal 50%. Repeat TTE to re-evaluate EF. Recommend strict I/Os, Na and fluid restriction, daily weights. Continue to follow. Qualifiers: Heart failure type: diastolic Qualified Code(s): I50.33 - Acute on chronic diastolic (congestive) heart failure (2) Afib Current Visit: Yes Status: Chronic V-paced with underlying chronic A-Fib. PPM in place. Device checks reviewed, no recent RVR. Continue BB. Will stop Digoxin. Anticoagulated on Xarelto. Qualifiers: Atrial fibrillation type: unspecified Qualified Code(s): I48.91 - Unspecified atrial fibrillation (3) Pulmonary hypertension Current Visit: Yes Status: Chronic Severe phtn TTE 03/2017 RVSP 64mmHg. Seen and evaluated by pulmonology. Discussion w patient/family: The assessment and plan as outlined above was discussed with the patient and/or family members who expressed understanding and agreement. All questions were answered. Thank you for involving us in the care of your patient. Please call with any questions. I will discuss all the above with Dr. Hilario Morley and make changes as necessary. History of Present Illness Consult date: 08/08/17 Consult reason: CHF Chief complaint: dyspnea, LE edema History of present illness: Ms. Rutherford is a 71 year old female w/PMH of arthritis, atrial fibrillation on Xarelto, bradycardia s/p PPM, diastolic CHF, COPD, GERD, HLD, HTN, phtn, and thyroid disease presents from the ED w/CC of worsening SOB/Dyspnea for the past 2-3 days, much worse w/exertion. States she uses home O2 @ 3-4L. Pt reports she is compliant with fluid and NA restriction, compliant with PO Lasix. Despite compliance, noticed increased dyspnea and LE edema. Report occasional dizziness. Denies syncope or chest pain. BNP 356, CXR Minimal bibasilar atelectasis, Pulmonary vascular congestion and mild cardiomegaly. Prior CV testing: TTE 03/2017 LVEF 50%. Normal LV chamber size and wall thickness. LV function is low normal. Atypical septal motion consistent with paced rhythm. Indeterminate diastolic function. Normal right ventricular structure and function. Severely dilated left atrium. Moderate to severely dilated right atrium. Moderate tricuspid regurgitation. Severe pulmonary hypertension. Estimated RVSP is 64 mmHg. A device lead was visualized in the right atrium and right ventricle. Stress test 03/2015 perfusion imaging negative for ischemia or infarct. Gated EF 52%. Past Med Surg Social Fam HX - Past Medical History Medical history: arthritis, atrial fibrillation, CHF, COPD, GERD, hyperlipidemia , hypertension, thyroid disease, other Additional medical history: anemia Psychiatric history: anxiety, depression - Past Surgical History Surgical History: orthopedic, other, pacemaker/AICD Additional surgical history: R shoulder complete replacement, knee replacement - Social History Smoking Status: 2nd Hand Smoke Exposure Smokeless Tobacco Status: No Alcohol use: none Drug use: none - Family History Mother Race: Family Member Ethnicity: Non- Living Status: Age at : 84 Cause of : Kidney failure Hx Family Genitourinary Disorders: Yes (Kidney failure) Brother Race: Family Member Ethnicity: Non- Living Status: Still Living Hx Family Medical Disorders: No Sister Race: Family Member Ethnicity: Non- Living Status: Still Living Hx Family Medical Disorders: No Father Race: Family Member Ethnicity: Non- Living Status: Age at : 61 Cause of : CA Hx Family Cardiac Disorders: Yes (massive CA) Medications and Allergies Aspirin Enteric Coated [Aspirin EC] 81 mg PO QAM 12/14/14 [History] Duloxetine HCl [Cymbalta] 60 mg PO QAM 12/14/14 [History] Levothyroxine [Synthroid] 88 mcg PO QAM 03/24/15 [History] Polyethylene Glycol 3350 [MiraLAX] 17 gm PO DAILY PRN 07/26/16 [History] Metoprolol XL (24 HR) Succ [Toprol Xl] 25 mg PO DAILY 03/14/17 [History] OxyCODONE/APAP 10/325 [Percocet 10/325 MG] 1 each PO Q6HR PRN 5 Days #15 tablet 03/20/17 [Rx] Ascorbic Acid [Vitamin C] 500 mg PO DAILY 08/07/17 [History] Cholecalciferol (Vitamin D3) [Vitamin D3] 10,000 unit PO MO 08/07/17 [History] Digoxin [Lanoxin] 125 mcg PO 1200 08/07/17 [History] Docusate [Colace] 100 mg PO BID 08/07/17 [History] Ferrous Sulfate 325 mg PO DAILY 08/07/17 [History] Furosemide [Lasix] 20 mg PO BID 08/07/17 [History] Gabapentin [Neurontin] 100 mg PO TID 08/07/17 [History] Mv-Mn/FA/Vit K/Lycop/Lut/Coq10 [Daily Multivitamin Capsule] 1 cap PO DAILY 08/07 [History] Nitroglycerin [Nitrostat] 0.4 mg SL Q5MIN PRN 08/07/17 [History] Omeprazole [PriLOSEC] 40 mg PO QAM 08/07/17 [History] Rivaroxaban [Xarelto] 20 mg PO 1700 08/07/17 [History] Sertraline [Zoloft] 50 mg PO DAILY 08/07/17 [History] Simvastatin [Zocor] 40 mg PO DAILY 08/07/17 [History] traZODone [TraZODone] 50 mg PO HS 08/07/17 [History] 3 Allergy/AdvReac Type Severity Reaction Status Date / Time Penicillins [PCN] Allergy Blister Verified 08/07/17 14:46 All Systems Review: The remainder of the systems were reviewed and are negative - Cardiovascular Cardiovascular: as per HPI, dyspnea at rest, dyspnea on exertion Physical Examination Vital Signs Temp Pulse Resp BP Pulse Ox 08/08/17 10:48 98.2 F 68 18 95/61 93 08/08/17 09:55 96 08/08/17 07:05 98.1 F 116 18 89/54 96 08/08/17 04:24 62 16 95/63 90 08/07/17 23:06 97.5 F L 85 16 92/63 93 07/03/18 21:40 16 96 08/07/17 18:55 97.6 F 78 16 83/53 96 08/07/17 15:50 98 08/07/17 15:43 97.4 F L 71 18 129/84 98 08/07/17 15:15 18 92/75 98 08/07/17 14:00 70 18 130/88 98 Intake and Output 08/07/17 08/08/17 08/08/17 23:59 07:59 15:59 Intake Total 520 / 520 150 / 150 0 / 0 Output Total 300 / 300 450 / 450 Balance 220 / 220 150 / 150 -450 / -450 Intake: Oral 520 / 520 150 / 150 0 / 0 Output: Urine 450 / 450 Catheter 300 / 300 Other: Percent of Meal Consumed 30% Weight 88.9 kg Patient Weight 08/08/17 23:59 Weight 88.9 kg General: Conversant, No Apparent Distress HEENT: Atraumatic, Normocephaly, Mucus Membranes Moist Neck: Normal carotid pulses Cardiac: Other (irregularly irregular) Lungs: Other (diminished) Neuro: Alert and responsive, No focal deficits noted Abdomen: Soft, Non-Tender Skin: No rashes noted on visualized skin Musculoskeletal: No Chest Wall Tenderness Extremities: Other (mild LE edema) Results 08/08/17 04:16 08/08/17 04:16 Short CBC 08/08/17 Range/Units 04:16 WBC 7.1 (4.3-11.1) K/mcL Hgb 10.7 L (11.5-15.4) g/dL Hct 34.5 L (35.3-44.9) % Plt Count 181 (140-400) K/mcL Neutrophils # 4.2 (1.6-8.9) K/mcL BMP 08/08/17 08/07/17 Range/Units 04:16 11:45 Sodium 140 141 (136-145) mEq/L Potassium 3.4 L 4.0 (3.5-5.1) mEq/L Chloride 98 100 (98-107) mEq/L Carbon Dioxide 35 H 36 H (23-29) mEq/L BUN 10 10 (8-23) mg/dL Creatinine 0.79 0.75 (0.60-1.20) mg/dL Glucose 95 111 H (70-105) mg/dL Calcium 9.4 9.8 (8.6-10.3) mg/dL Cardiac Enzymes 08/07/17 Range/Units 11:45 Troponin I 0.03 (< 0.04) ng/mL Liver Function 08/08/17 08/07/17 Range/Units 04:16 11:45 Total Bilirubin 1.3 H 1.2 H (0.3-1.0) mg/dL Direct Bilirubin 0.5 H (0.0-0.2) mg/dL AST 13 15 (13-39) Units/L ALT 6 L 7 (7-52) Units/L Alkaline Phosphatase 60 67 (34-104) Units/L Albumin 3.4 L 3.7 (3.5-5.7) g/dL Urine 08/07/17 Range/Units 12:54 Urine Color Yellow (Yellow) Urine Clarity Clear (Clear) Urine pH 8.0 (5.0-8.0) pH Units Ur Specific [place] 1.012 (1.010-1.025) Urine Protein Negative (Neg-Trace) mg/dL Urine Glucose (UA) Normal (Normal) mg/dL Active Medications Acetaminophen (Tylenol) 650 mg PO Q6HR PRN PRN Reason: Mild Pain/Fever Stop: 02/06/18 16:28 Ascorbic Acid (Vitamin C) 500 mg PO DAILY [facility] Stop: 02/07/18 09:01 Last Admin: 08/08/17 08:47 Dose: 500 mg Aspirin (Aspirin Ec) 81 mg PO DAILY [facility] Stop: 02/07/18 09:01 Last Admin: 08/08/17 08:47 Dose: 81 mg Digoxin (Lanoxin) 0.125 mg PO DAILY [facility] Stop: 02/07/18 09:01 Last Admin: 08/08/17 08:47 Dose: 0.125 mg Docusate Sodium (Colace) 100 mg PO BID [facility] PRN Reason: Protocol Stop: 02/06/18 21:01 Last Admin: 08/08/17 08:48 Dose: 100 mg Duloxetine HCl (Cymbalta) 60 mg PO DAILY [facility] Stop: 02/07/18 09:01 Last Admin: 08/08/17 08:48 Dose: 60 mg Ferrous Sulfate (Ferrous Sulfate) 325 mg PO DAILY [facility] Stop: 02/07/18 09:01 Last Admin: 08/08/17 08:47 Dose: 325 mg Furosemide (Lasix) 40 mg IVP BIDDIURETIC [facility] Stop: 02/06/18 17:01 Last Admin: 08/08/17 08:39 Dose: Not Given Gabapentin (Neurontin) 100 mg PO TID [facility] Stop: 02/06/18 21:01 Last Admin: 08/08/17 08:48 Dose: 100 mg Levalbuterol HCl (Xopenex) 1.25 mg IH [id number] [facility] Stop: 02/06/18 22:01 Last Admin: 08/08/17 10:24 Dose: 1.25 mg Levothyroxine Sodium (Synthroid) 88 mcg PO QAM@0630 [facility] Stop: 02/07/18 06:31 Last Admin: 08/08/17 06:28 Dose: 88 mcg Metoprolol Succinate (Toprol Xl) 25 mg PO DAILY [facility] Stop: 02/07/18 09:01 Last Admin: 08/08/17 08:08 Dose: Not Given Multivitamins/Calcium (Thera M Plus) 1 tab PO DAILY [facility] Stop: 02/07/18 09:01 Last Admin: 08/08/17 08:48 Dose: 1 tab Naloxone HCl (Narcan) 0.4 mg IVP Q2MIN PRN PRN Reason: SEE COMMENTS Stop: 02/06/18 16:28 Nitroglycerin (Nitroglycerin) 0.4 mg SL Q5MIN PRN PRN Reason: Chest Pain Stop: 02/06/18 16:33 Omeprazole (Prilosec) 40 mg PO QAM@0730 [facility] Stop: 02/07/18 07:31 Last Admin: 08/08/17 08:47 Dose: 40 mg Ondansetron HCl (Zofran) 4 mg IVP Q6HR PRN; Protocol PRN Reason: Nausea And Vomiting Stop: 02/06/18 17:29 Last Admin: 08/07/17 17:51 Dose: 4 mg Oxycodone/Acetaminophen (Percocet 10/325) 1 each PO Q6HR PRN PRN Reason: Pain Stop: 02/06/18 16:56 Last Admin: 08/07/17 17:59 Dose: 1 each Polyethylene Glycol (Miralax) 17 gm PO DAILY [facility] Stop: 02/07/18 09:01 Last Admin: 08/08/17 08:48 Dose: Not Given Rivaroxaban (Xarelto) 20 mg PO 1700 [facility] Stop: 02/06/18 17:01 Last Admin: 08/07/17 17:53 Dose: 20 mg Sertraline HCl (Zoloft) 50 mg PO DAILY [facility] Stop: 02/07/18 09:01 Last Admin: 08/08/17 08:48 Dose: 50 mg Simvastatin (Zocor) 40 mg PO DAILY [facility] PRN Reason: Protocol Stop: 02/07/18 09:01 Last Admin: 08/08/17 08:47 Dose: 40 mg Trazodone HCl (Trazodone) 50 mg PO HS [facility] Stop: 02/06/18 21:01 Last Admin: 08/07/17 21:54 Dose: 50 mg Vitamin D (Vitamin D) 1,000 unit PO DAILY [facility] Stop: 02/07/18 09:01 Last Admin: 08/08/17 08:48 Dose: 1,000 unit - Imaging and Cardiology Stress Test: report reviewed Echo: report reviewed - EKG Interpretation EKG results cardiology: personally reviewed (paced), other (12 hr tele AVG HR 94 , A-Fib, intermittently paced) Consult Discharge Plan - Plan Referrals: Hawk Sarmiento MD [Primary Care Provider] - <Hilario Morley - Last Filed: 08/08/17 12:50> Date of Encounter: 08/08/17 - Attending Attestation I have personally performed a face to face evaluation on this patient. I have reviewed and agree with the care plan. History and Exam by me shows: Possible diastolic CHF. BNP only moderately elevated and lower that prvevious. Would agree with aggressive diuresis but if symptoms don't resolve may need to consider an alternate etiology. Assessment and Plan Discussion w patient/family: The assessment and plan as outlined above was discussed with the patient and/or family members who expressed understanding and agreement. All questions were answered. Thank you for involving us in the care of your patient. Please call with any questions. History of Present Illness History of present illness: Ms. Rutherford is a 71 year old female All Systems Review: The remainder of the systems were reviewed and are negative Results 08/08/17 04:16 08/08/17 04:16
[2017-08-08] MEDS: *HR* OxyCODONE/APAP 10/325 TABLET PO PRN ×2 (13:35→22:08)
[2017-08-08] MEDS: *HR* Rivaroxaban 10 MG TABLET PO SCH (16:28)
--- NOTE | 2017-08-08 17:20 | Internal Med Progress Note ---
Date of Encounter: 08/08/17 Time of Encounter: 11:00 - Assessment and plan (1) (HFpEF) heart failure with preserved ejection fraction Current Visit: Yes Status: Acute Assessment and plan: Acute on chronic HFpEF. Last ECHO EF 50% with diastolic dysfunction. BNP 356. Had been given 40 IV lasix intially and started on 20 IV BID lasix, but now held due to hypotension and patient is euvolemic. Will monitor BP for now and will resume Lasix in AM if tolerated. Monitor I/O, daily weights, fluid and salt restriction. Cardiology following. (2) COPD (chronic obstructive pulmonary disease) Current Visit: Yes Status: Acute Assessment and plan: Hx of chronic COPD. Stable. Exposure to 2nd hand smoke from and son supplement O2 as needed. Qualifiers: Emphysema type: unspecified Qualified Code(s): J43.9 - Emphysema, unspecified (3) Atrial fibrillation Current Visit: Yes Status: Chronic Assessment and plan: Chronic Afib on Xarelto. BB held due to low BP. Patient is ventricular paced. Continue A/C. Episode of tachycardia noted. EKG obtained and discussed with cardiology today. Appears to be more rapid pacing of ventricles. Resume BB in AM if tolerated. Qualifiers: Atrial fibrillation type: chronic Qualified Code(s): I48.2 - Chronic atrial fibrillation (4) GERD (gastroesophageal reflux disease) Current Visit: Yes Status: Chronic Assessment and plan: Chronic GERD c/w Prilosec Qualifiers: Esophagitis presence: esophagitis presence not specified Qualified Code(s) : K21.9 - Gastro-esophageal reflux disease without esophagitis (5) HTN (hypertension) Current Visit: Yes Status: Chronic Assessment and plan: Hx of chronic HTN on Metoprolol Metoprolol held due to borderline BP Plan to resume in AM if tolerated Qualifiers: Hypertension type: essential hypertension Qualified Code(s): I10 - Essential (primary) hypertension (6) Hypothyroidism Current Visit: Yes Status: Chronic Assessment and plan: Hx of chronic hypothyroidism. TSH 2.27 c/w home dose synthroid Qualifiers: Hypothyroidism type: acquired Qualified Code(s): E03.9 - Hypothyroidism, unspecified - Time Spent With Patient Total time spent is greater than 50% in coordination of care (as documented) at patient's floor/unit and/or counseling patient: - Subjective Interval history: Appears well sitting on bed. Reports feeling better, no significant SOB at this time. Noted to have an abnormal rhythm on Tele strip and patient reports having brief episodes of "heart fluters" that last for several seconds from time to time that resolves. Otherwise does not have any symptoms now. - Constitutional Vitals: Temp Pulse Resp BP Pulse Ox 98.2 F 80 20 101/64 98 08/08/17 16:10 08/08/17 16:10 08/08/17 16:10 08/08/17 16:10 08/08/17 16:10 General appearance: Present: cooperative, mild distress (SOB), A&O X 3, pleasant , obese, answers questions appropriately Exam: General: Alert and oriented. Diffuse weakness. Skin: Normal color, no rash, no lesions. HEENT: EOMI, pupils equal, round and reactive. Cardiovascular: Regular rate, irregular rhythm. Lungs:Normal breath sounds, no wheezes or crackles. Abdomen:Soft, non-tender, no rigidity. Extremities:No deformity, no edema or tenderness, no joint swelling or clubbing. Neurological:Normal cognition, no numbness. Rest of the physical exam is non contributory Internal Medicine: Result - Labs CBC & Chem 7: 08/08/17 04:16 08/08/17 04:16 - ABG Interpretation ABG results: PT/INR, D-dimer PT 37.3 Seconds (9.4-12.1) H D 08/08/17 04:16 Consult Discharge Plan - Plan Referrals: Hawk Sarmiento MD [Primary Care Provider] -
[2017-08-08] MEDS: traZODone 50 MG TABLET PO SCH (20:51)
[2017-08-09] MEDS: Levalbuterol Neb 1.25 MG/3 ML IH SCH ×4 (03:44→22:05)
[2017-08-09 06:16] LABS: Basophils % 0.7 %; Eosinophils # 0.2 K/mcL (0.0-0.6); Eosinophils % 2.5 %; Hemoglobin 10.8 g/dL (11.5-15.4); Immature Granulocytes % 0.3 % (0-4); Lymphocytes # 1.8 K/mcL (0.6-4.6); Lymphocytes % 30.3 %; Mean Corpuscular HGB Conc 30.9 g/dL (31.6-35.5); Mean Corpuscular Hemoglobin 27.2 pg (28.0-33.3); Mean Corpuscular Volume 88.2 fL (83.0-100.0); Mean Platelet Volume 11.5 fL (9.4-12.4); Monocytes # 0.6 K/mcL (0.0-1.3); Monocytes % 10.5 %; Neutrophils # 3.3 K/mcL (1.6-8.9); Platelet Count 162 K/mcL (140-400); Red Blood Count 3.97 M/mcL (3.82-4.97); Red Cell Distribution Width 16.1 % (11.5-14.5); Segmented Neutrophils % 55.7 %
[2017-08-09 06:32] LABS: Alanine Aminotransferase 6 Units/L (7-52); Albumin 3.3 g/dL (3.5-5.7); Albumin/Globulin Ratio 1.1 (1.1-2.2); Alkaline Phosphatase 58 Units/L (34-104); Aspartate Amino Transferase 16 Units/L (13-39); BUN/Creatinine Ratio 14 (6-26); Bilirubin,Total 0.9 mg/dL (0.3-1.0); Blood Urea Nitrogen 10 mg/dL (8-23); Calcium 9.1 mg/dL (8.6-10.3); Carbon Dioxide 36 mEq/L (23-29); Chloride 97 mEq/L (98-107); Globulin 3.1 g/dL (2.4-3.5); Glucose 108 mg/dL (70-105); Osmolality,Calculated 286 (280-300); Potassium 3.4 mEq/L (3.5-5.1); Sodium 138 mEq/L (136-145); Total Protein 6.4 g/dL (6.4-8.9); eGFR For African Americans > 60 (> 60); eGFR For Non-African Americans > 60 (> 60)
[2017-08-09] MEDS: Multivit/Ca/Min/Fe/FA 1 TAB TABLET PO SCH (08:44)
[2017-08-09] MEDS: Metoprolol XL (24 HR) Succ 25 MG TAB.ER.24H PO SCH (08:44)
[2017-08-09] MEDS: Ascorbic Acid 500 MG TABLET PO SCH (08:44)
[2017-08-09] MEDS: Furosemide 20 MG/2 ML VIAL IVP SCH (08:44)
[2017-08-09] MEDS: Cholecalciferol (D-3) 1,000 UNIT TABLET PO SCH (08:44)
[2017-08-09] MEDS: Gabapentin 100 MG CAPSULE PO SCH ×3 (08:45→21:54)
[2017-08-09] MEDS: Aspirin Enteric Coated 81 MG Tablet PO SCH (08:45)
[2017-08-09] MEDS: *HR* OxyCODONE/APAP 10/325 TABLET PO PRN ×2 (08:59→21:54)
--- NOTE | 2017-08-09 10:22 | Cardiology Progress Note ---
Date of Encounter: 08/09/17 Time of Encounter: 10:18 Assessment and Plan (1) Acute exacerbation of CHF (congestive heart failure) Current Visit: Yes Status: Acute Suspect acute on chronic diastolic CHF. Vascular congestion on CXR. BNP only midly elevated 356 (lower than previous BNPs). Pt reports symptom improvement with diuresis. Cumulative I/O -490mL. Reports compliance with low Na and fluid restriction, compliant with home Lasix. Discussed with Dr. Hilario Morley. Agree with IV diuresis as BP tolerates. Inotropic support not warranted currently. Pt had severe phtn on TTE 03/2017, est RVSP 64mmHg. Pulmonology following-- appreciate their recs. TTE 03/2017 EF low normal 50%. Repeat TTE to re-evaluate EF. Recommend strict I/Os, Na and fluid restriction, daily weights. Continue to follow. Qualifiers: Heart failure type: diastolic Qualified Code(s): I50.33 - Acute on chronic diastolic (congestive) heart failure (2) Afib Current Visit: Yes Status: Chronic V-paced with underlying chronic A-Fib. PPM in place. Device checks reviewed, no recent RVR. Continue BB. Stopped Digoxin, per Dr. Hilario Morley. Anticoagulated on Xarelto. Qualifiers: Atrial fibrillation type: unspecified Qualified Code(s): I48.91 - Unspecified atrial fibrillation (3) Pulmonary hypertension Current Visit: Yes Status: Chronic Severe phtn TTE 03/2017 RVSP 64mmHg. Seen and evaluated by pulmonology. Discussion w patient/family: The assessment and plan as outlined above was discussed with the patient and/or family members who expressed understanding and agreement. All questions were answered. Thank you for involving us in the care of your patient. Please call with any questions. I will discuss all the above with Dr. Hilario Morley and make changes as necessary. Subjective Principal diagnosis: CHF Interval history: Pt reports feeling much better today--dyspnea and LE edema have improved. TTE has not been completed yet. Pt denies chest pain. Objective Vital Signs, Last 4 Hours Temp Pulse Resp BP Pulse Ox 08/09/17 09:00 97 08/09/17 07:04 97.8 F 72 18 115/60 97 Short CBC 08/09/17 Range/Units 05:02 WBC 6.0 (4.3-11.1) K/mcL Hgb 10.8 L (11.5-15.4) g/dL Hct 35.0 L (35.3-44.9) % Plt Count 162 (140-400) K/mcL Neutrophils # 3.3 (1.6-8.9) K/mcL BMP 08/09/17 Range/Units 05:02 Sodium 138 (136-145) mEq/L Potassium 3.4 L (3.5-5.1) mEq/L Chloride 97 L (98-107) mEq/L Carbon Dioxide 36 H (23-29) mEq/L BUN 10 (8-23) mg/dL Creatinine 0.73 (0.60-1.20) mg/dL Glucose 108 H (70-105) mg/dL Calcium 9.1 (8.6-10.3) mg/dL Liver Function 08/09/17 Range/Units 05:02 Total Bilirubin 0.9 (0.3-1.0) mg/dL AST 16 (13-39) Units/L ALT 6 L (7-52) Units/L Alkaline Phosphatase 58 (34-104) Units/L Albumin 3.3 L (3.5-5.7) g/dL Active Medications Acetaminophen (Tylenol) 650 mg PO Q6HR PRN PRN Reason: Mild Pain/Fever Stop: 02/06/18 16:28 Ascorbic Acid (Vitamin C) 500 mg PO DAILY COUNT INCLUDES THE [facility] Stop: 02/07/18 09:01 Last Admin: 08/09/17 08:44 Dose: 500 mg Aspirin (Aspirin Ec) 81 mg PO DAILY COUNT INCLUDES THE [facility] Stop: 02/07/18 09:01 Last Admin: 08/09/17 08:45 Dose: 81 mg Docusate Sodium (Colace) 100 mg PO BID COUNT INCLUDES THE [facility] PRN Reason: Protocol Stop: 02/06/18 21:01 Last Admin: 08/09/17 08:45 Dose: 100 mg Duloxetine HCl (Cymbalta) 60 mg PO DAILY COUNT INCLUDES THE [facility] Stop: 02/07/18 09:01 Last Admin: 08/09/17 08:44 Dose: 60 mg Ferrous Sulfate (Ferrous Sulfate) 325 mg PO DAILY COUNT INCLUDES THE [facility] Stop: 02/07/18 09:01 Last Admin: 08/09/17 08:45 Dose: 325 mg Furosemide (Lasix) 20 mg IVP DAILY COUNT INCLUDES THE [facility] Stop: 02/08/18 09:01 Last Admin: 08/09/17 08:44 Dose: 20 mg Gabapentin (Neurontin) 100 mg PO TID COUNT INCLUDES THE [facility] Stop: 02/06/18 21:01 Last Admin: 08/09/17 08:45 Dose: 100 mg Levalbuterol HCl (Xopenex) 1.25 mg IH [id number] COUNT INCLUDES THE [facility] Stop: 02/06/18 22:01 Last Admin: 08/09/17 03:44 Dose: 1.25 mg Levothyroxine Sodium (Synthroid) 88 mcg PO QAM@0630 COUNT INCLUDES THE [facility] Stop: 02/07/18 06:31 Last Admin: 08/09/17 05:25 Dose: 88 mcg Metoprolol Succinate (Toprol Xl) 25 mg PO DAILY COUNT INCLUDES THE [facility] Stop: 02/07/18 09:01 Last Admin: 08/09/17 08:44 Dose: 25 mg Multivitamins/Calcium (Thera M Plus) 1 tab PO DAILY COUNT INCLUDES THE [facility] Stop: 02/07/18 09:01 Last Admin: 08/09/17 08:44 Dose: 1 tab Naloxone HCl (Narcan) 0.4 mg IVP Q2MIN PRN PRN Reason: SEE COMMENTS Stop: 02/06/18 16:28 Nitroglycerin (Nitroglycerin) 0.4 mg SL Q5MIN PRN PRN Reason: Chest Pain Stop: 02/06/18 16:33 Omeprazole (Prilosec) 40 mg PO QAM@0730 COUNT INCLUDES THE [facility] Stop: 02/07/18 07:31 Last Admin: 08/09/17 08:44 Dose: 40 mg Ondansetron HCl (Zofran) 4 mg IVP Q6HR PRN; Protocol PRN Reason: Nausea And Vomiting Stop: 02/06/18 17:29 Last Admin: 08/07/17 17:51 Dose: 4 mg Oxycodone/Acetaminophen (Percocet 10/325) 1 each PO Q6HR PRN PRN Reason: Severe Pain Stop: 02/06/18 16:56 Last Admin: 08/09/17 08:59 Dose: 1 each Polyethylene Glycol (Miralax) 17 gm PO DAILY COUNT INCLUDES THE [facility] Stop: 02/07/18 09:01 Last Admin: 08/09/17 08:45 Dose: Not Given Rivaroxaban (Xarelto) 20 mg PO 1700 COUNT INCLUDES THE [facility] Stop: 02/06/18 17:01 Last Admin: 08/08/17 16:28 Dose: 20 mg Sertraline HCl (Zoloft) 50 mg PO DAILY COUNT INCLUDES THE [facility] Stop: 02/07/18 09:01 Last Admin: 08/09/17 08:44 Dose: 50 mg Simvastatin (Zocor) 40 mg PO DAILY COUNT INCLUDES THE [facility] PRN Reason: Protocol Stop: 02/07/18 09:01 Last Admin: 08/09/17 08:44 Dose: 40 mg Trazodone HCl (Trazodone) 50 mg PO HS [facility] Stop: 02/06/18 21:01 Last Admin: 08/08/17 20:51 Dose: 50 mg Vitamin D (Vitamin D) 1,000 unit PO DAILY [facility] Stop: 02/07/18 09:01 Last Admin: 08/09/17 08:44 Dose: 1,000 unit General: Conversant, No Apparent Distress HEENT: Atraumatic, Normocephaly, Mucus Membranes Moist Neck: Normal carotid pulses Cardiac: Other (irregularly irregular) Lungs: Normal Breath Sounds, No Wheeze, Rales, Rhonchi Neuro: Alert and responsive, No focal deficits noted Abdomen: Soft, Non-Tender Skin: No rashes noted on visualized skin Musculoskeletal: No Chest Wall Tenderness Extremities: No Clubbing, No Cyanosis, No Edema, Normal Pulses Results 08/09/17 05:02 08/09/17 05:02 Lab Results 08/09/17 08/09/17 05:02 05:02 WBC 6.0 Hgb 10.8 L Hct 35.0 L Plt Count 162 Sodium 138 Potassium 3.4 L Chloride 97 L Carbon Dioxide 36 H BUN 10 Creatinine 0.73 Glucose 108 H Calcium 9.1 Total Bilirubin 0.9 AST 16 ALT 6 L Alkaline Phosphatase 58 Short CBC 08/09/17 Range/Units 05:02 WBC 6.0 (4.3-11.1) K/mcL Hgb 10.8 L (11.5-15.4) g/dL Hct 35.0 L (35.3-44.9) % Plt Count 162 (140-400) K/mcL Neutrophils # 3.3 (1.6-8.9) K/mcL BMP 08/09/17 Range/Units 05:02 Sodium 138 (136-145) mEq/L Potassium 3.4 L (3.5-5.1) mEq/L Chloride 97 L (98-107) mEq/L Carbon Dioxide 36 H (23-29) mEq/L BUN 10 (8-23) mg/dL Creatinine 0.73 (0.60-1.20) mg/dL Glucose 108 H (70-105) mg/dL Calcium 9.1 (8.6-10.3) mg/dL Liver Function 08/09/17 Range/Units 05:02 Total Bilirubin 0.9 (0.3-1.0) mg/dL AST 16 (13-39) Units/L ALT 6 L (7-52) Units/L Alkaline Phosphatase 58 (34-104) Units/L Albumin 3.3 L (3.5-5.7) g/dL Active Medications Acetaminophen (Tylenol) 650 mg PO Q6HR PRN PRN Reason: Mild Pain/Fever Stop: 02/06/18 16:28 Ascorbic Acid (Vitamin C) 500 mg PO DAILY COUNT INCLUDES THE [facility] Stop: 02/07/18 09:01 Last Admin: 08/09/17 08:44 Dose: 500 mg Aspirin (Aspirin Ec) 81 mg PO DAILY COUNT INCLUDES THE [facility] Stop: 02/07/18 09:01 Last Admin: 08/09/17 08:45 Dose: 81 mg Docusate Sodium (Colace) 100 mg PO BID [facility] PRN Reason: Protocol Stop: 02/06/18 21:01 Last Admin: 08/09/17 08:45 Dose: 100 mg Duloxetine HCl (Cymbalta) 60 mg PO DAILY [facility] Stop: 02/07/18 09:01 Last Admin: 08/09/17 08:44 Dose: 60 mg Ferrous Sulfate (Ferrous Sulfate) 325 mg PO DAILY COUNT INCLUDES THE [facility] Stop: 02/07/18 09:01 Last Admin: 08/09/17 08:45 Dose: 325 mg Furosemide (Lasix) 20 mg IVP DAILY COUNT INCLUDES THE [facility] Stop: 02/08/18 09:01 Last Admin: 08/09/17 08:44 Dose: 20 mg Gabapentin (Neurontin) 100 mg PO TID COUNT INCLUDES THE [facility] Stop: 02/06/18 21:01 Last Admin: 08/09/17 08:45 Dose: 100 mg Levalbuterol HCl (Xopenex) 1.25 mg IH [id number] COUNT INCLUDES THE [facility] Stop: 02/06/18 22:01 Last Admin: 08/09/17 10:18 Dose: 1.25 mg Levothyroxine Sodium (Synthroid) 88 mcg PO QAM@0630 COUNT INCLUDES THE [facility] Stop: 02/07/18 06:31 Last Admin: 08/09/17 05:25 Dose: 88 mcg Metoprolol Succinate (Toprol Xl) 25 mg PO DAILY [facility] Stop: 02/07/18 09:01 Last Admin: 08/09/17 08:44 Dose: 25 mg Multivitamins/Calcium (Thera M Plus) 1 tab PO DAILY COUNT INCLUDES THE [facility] Stop: 02/07/18 09:01 Last Admin: 08/09/17 08:44 Dose: 1 tab Naloxone HCl (Narcan) 0.4 mg IVP Q2MIN PRN PRN Reason: SEE COMMENTS Stop: 02/06/18 16:28 Nitroglycerin (Nitroglycerin) 0.4 mg SL Q5MIN PRN PRN Reason: Chest Pain Stop: 02/06/18 16:33 Omeprazole (Prilosec) 40 mg PO QAM@0730 COUNT INCLUDES THE [facility] Stop: 02/07/18 07:31 Last Admin: 08/09/17 08:44 Dose: 40 mg Ondansetron HCl (Zofran) 4 mg IVP Q6HR PRN; Protocol PRN Reason: Nausea And Vomiting Stop: 02/06/18 17:29 Last Admin: 08/07/17 17:51 Dose: 4 mg Oxycodone/Acetaminophen (Percocet 10/325) 1 each PO Q6HR PRN PRN Reason: Severe Pain Stop: 02/06/18 16:56 Last Admin: 08/09/17 08:59 Dose: 1 each Polyethylene Glycol (Miralax) 17 gm PO DAILY COUNT INCLUDES THE [facility] Stop: 02/07/18 09:01 Last Admin: 08/09/17 08:45 Dose: Not Given Rivaroxaban (Xarelto) 20 mg PO 1700 COUNT INCLUDES THE [facility] Stop: 02/06/18 17:01 Last Admin: 08/08/17 16:28 Dose: 20 mg Sertraline HCl (Zoloft) 50 mg PO DAILY COUNT INCLUDES THE [facility] Stop: 02/07/18 09:01 Last Admin: 08/09/17 08:44 Dose: 50 mg Simvastatin (Zocor) 40 mg PO DAILY [facility] PRN Reason: Protocol Stop: 02/07/18 09:01 Last Admin: 08/09/17 08:44 Dose: 40 mg Trazodone HCl (Trazodone) 50 mg PO HS COUNT INCLUDES THE [facility] Stop: 02/06/18 21:01 Last Admin: 08/08/17 20:51 Dose: 50 mg Vitamin D (Vitamin D) 1,000 unit PO DAILY [facility] Stop: 02/07/18 09:01 Last Admin: 08/09/17 08:44 Dose: 1,000 unit - Imaging and Cardiology Echo: pending - EKG Interpretation EKG results cardiology: other (12 hr tele AVG HR 89, A-Fib, paced) - VTE Documentation of Mechanical Device: Intermittent pneumatic compression device Consult Discharge Plan - Plan Referrals: Hawk Sarmiento MD [Primary Care Provider] - 08/16/17 1:15 pm (Please follow up as schedule...)
--- NOTE | 2017-08-09 12:35 | Event Note ---
Date of Encounter: 08/09/17 Time of Encounter: 12:33 - Cardiology Event Note TTE resulted--EF previously 50% 03/2017. LVEF now further reduced to 35-40%. Moderate global and segmental left ventricular systolic dysfunction. Moderate phtn. Severely dilated LA. No significant valvular dysfunction. Given new CMP, recommend LHC to determine if it is ischemic in origin. R/B/A discussed. Pt agrees to proceed with LHC tomorrow. Will hold Xarelto this evening in anticipation for LHC.
--- NOTE | 2017-08-09 16:05 | Internal Med Progress Note ---
Date of Encounter: 08/09/17 Time of Encounter: 09:30 - Assessment and plan (1) (HFpEF) heart failure with preserved ejection fraction Current Visit: Yes Status: Acute Assessment and plan: Acute on chronic HFpEF. Last ECHO EF 50% with diastolic dysfunction. BNP 356. On Lasix 20 mg IV daily now. Monitor BP, patient was borderline hypotensive. Monitor I/O, daily weights, fluid and salt restriction. Cardiology following. Plan for LHC tomorrow. NPO after midnight, Xarelto held. (2) Atrial fibrillation Current Visit: Yes Status: Chronic Assessment and plan: Chronic Afib on Xarelto. BB given with caution given BP borderline. Patient is ventricular paced. Xarelto held today for planned LHC tomorrow. Qualifiers: Atrial fibrillation type: chronic Qualified Code(s): I48.2 - Chronic atrial fibrillation (3) COPD (chronic obstructive pulmonary disease) Current Visit: Yes Status: Chronic Assessment and plan: Hx of chronic COPD. Stable. Exposure to 2nd hand smoke from and son supplement O2 as needed. Qualifiers: COPD type: unspecified COPD Qualified Code(s): J44.9 - Chronic obstructive pulmonary disease, unspecified (4) Hypothyroidism Current Visit: Yes Status: Chronic Assessment and plan: Hx of chronic hypothyroidism. TSH 2.27 c/w home dose synthroid Qualifiers: Hypothyroidism type: acquired Qualified Code(s): E03.9 - Hypothyroidism, unspecified (5) GERD (gastroesophageal reflux disease) Current Visit: Yes Status: Chronic Assessment and plan: Chronic GERD c/w Prilosec Qualifiers: Esophagitis presence: esophagitis presence not specified Qualified Code(s) : K21.9 - Gastro-esophageal reflux disease without esophagitis (6) HTN (hypertension) Current Visit: Yes Status: Chronic Assessment and plan: Hx of chronic HTN on Metoprolol BP is now low. BB on for A fib. Will hold if BP too low. Qualifiers: Hypertension type: essential hypertension Qualified Code(s): I10 - Essential (primary) hypertension - Time Spent With Patient Total time spent is greater than 50% in coordination of care (as documented) at patient's floor/unit and/or counseling patient: - Subjective Interval history: Appears well sitting on bed getting nebs treatment. Reports feeling well, no complaints. - Constitutional Vitals: Temp Pulse Resp BP Pulse Ox 97.6 F 79 18 99/62 94 08/09/17 12:47 08/09/17 12:47 08/09/17 12:47 08/09/17 12:47 08/09/17 12:47 General appearance: Present: cooperative, mild distress (SOB), A&O X 3, pleasant , obese, answers questions appropriately Exam: General: Alert and oriented. Somewhat frail. Skin: Normal color, no rash, no lesions. HEENT: EOMI, pupils equal, round and reactive. Cardiovascular: Regular rate, irregular rhythm. Lungs: clear breath sounds. Abdomen:Soft, non-tender, no rigidity. Extremities:No deformity, no edema or tenderness, no joint swelling or clubbing. Neurological:Normal cognition, no numbness. Rest of the physical exam is non contributory Internal Medicine: Result - Labs CBC & Chem 7: 08/09/17 05:02 08/09/17 05:02 Labs: Short CBC 08/09/17 Range/Units 05:02 WBC 6.0 (4.3-11.1) K/mcL Hgb 10.8 L (11.5-15.4) g/dL Hct 35.0 L (35.3-44.9) % Plt Count 162 (140-400) K/mcL Neutrophils # 3.3 (1.6-8.9) K/mcL BMP 08/09/17 05:02 Sodium 138 Potassium 3.4 L Chloride 97 L Carbon Dioxide 36 H BUN 10 Creatinine 0.73 Glucose 108 H Calcium 9.1 Liver Function 08/09/17 Range/Units 05:02 Total Bilirubin 0.9 (0.3-1.0) mg/dL AST 16 (13-39) Units/L ALT 6 L (7-52) Units/L Alkaline Phosphatase 58 (34-104) Units/L Albumin 3.3 L (3.5-5.7) g/dL - ABG Interpretation ABG results: PT/INR, D-dimer PT 37.3 Seconds (9.4-12.1) H D 08/08/17 04:16 - Impressions Impressions Echocardiogram 08/09/17 12:33 Impressions: LVEF 35-40%. Moderate global and segmental left ventricular systolic dysfunction. Moderate pulmonary hypertension. Severely dilated left atrium. No significant valvular dysfunction. Left Ventricular Wall Motion: Rest Echo Findings The apex, apical inferior, mid inferior, basal inferior, apical anterior, mid anterior, basal anterior, apical septal, mid inferior septal, basal inferior septal, apical lateral, mid anterior lateral, basal anterior lateral, mid anterior septal, mid inferior lateral, basal anterior septal and basal inferior lateral thomas were hypokinetic. Findings: Study Quality * Technically adequate exam. Right Ventricle * Normal right ventricular structure and function. Aortic Valve * Trileaflet aortic valve with normal function. Interatrial Septum * No evidence of PFO by color Doppler. Aorta * Normally sized aortic root. Pericardium * The pericardium appears normal. Left Ventricle * Mild concentric left ventricular hypertrophy. * Moderate global and segmental left ventricular systolic dysfunction. * LVEF 35-40%. Tricuspid Valve * No tricuspid stenosis. * Estimated RVSP is 48 mmHg. * Estimated RA pressure is 0-5 mmHg. * Moderate pulmonary hypertension. Device lead * A device lead was visualized in the right atrium and right ventricle. Pulmonic Valve * No pulmonic stenosis. * Mild pulmonic regurgitation. Mitral Valve * Normal mitral valve structure. * No mitral stenosis. * Mild mitral regurgitation. Right Atrium * Moderately dilated right atrium. Left Atrium * Severely dilated left atrium. IVC * Normal IVC dimensions and inspiratory collapse. ECG Findings * Sinus rhythm with BBB. - VTE Documentation of Mechanical Device: Intermittent pneumatic compression device Consult Discharge Plan - Plan Referrals: Hawk Sarmiento MD [Primary Care Provider] - 08/16/17 1:15 pm (Please follow up as schedule...)
[2017-08-09] MEDS: traZODone 50 MG TABLET PO SCH (21:54)
[2017-08-10] MEDS: Levalbuterol Neb 1.25 MG/3 ML IH SCH ×4 (04:10→21:22)
[2017-08-10 05:41] LABS: Basophils # 0.1 K/mcL (0.0-0.2); Basophils % 0.8 %; Eosinophils # 0.2 K/mcL (0.0-0.6); Eosinophils % 3.1 %; Hematocrit 35.9 % (35.3-44.9); Hemoglobin 10.6 g/dL (11.5-15.4); Immature Granulocytes % 0.3 % (0-4); Lymphocytes % 31.6 %; Mean Corpuscular HGB Conc 29.5 g/dL (31.6-35.5); Mean Platelet Volume 11.6 fL (9.4-12.4); Monocytes # 0.7 K/mcL (0.0-1.3); Monocytes % 11.2 %; Neutrophils # 3.4 K/mcL (1.6-8.9); Platelet Count 182 K/mcL (140-400); Red Blood Count 4.08 M/mcL (3.82-4.97); Red Cell Distribution Width 16.4 % (11.5-14.5)
[2017-08-10 05:54] LABS: BUN/Creatinine Ratio 13 (6-26); Blood Urea Nitrogen 9 mg/dL (8-23); Carbon Dioxide 36 mEq/L (23-29); Chloride 98 mEq/L (98-107); Potassium 4.1 mEq/L (3.5-5.1); Sodium 138 mEq/L (136-145); eGFR For African Americans > 60 (> 60)
[2017-08-10 05:55] LABS: Alanine Aminotransferase 6 Units/L (7-52); Albumin 3.4 g/dL (3.5-5.7); Albumin/Globulin Ratio 1.1 (1.1-2.2); Alkaline Phosphatase 68 Units/L (34-104); Aspartate Amino Transferase 16 Units/L (13-39); Bilirubin,Total 0.7 mg/dL (0.3-1.0); Calcium 9.5 mg/dL (8.6-10.3); Globulin 3.1 g/dL (2.4-3.5); Glucose 105 mg/dL (70-105); Osmolality,Calculated 285 (280-300); Total Protein 6.5 g/dL (6.4-8.9); eGFR For Non-African Americans > 60 (> 60)
[2017-08-10] MEDS: Gabapentin 100 MG CAPSULE PO SCH ×3 (07:51→21:51)
[2017-08-10] MEDS: Aspirin Enteric Coated 81 MG Tablet PO SCH (07:51)
[2017-08-10] MEDS: Cholecalciferol (D-3) 1,000 UNIT TABLET PO SCH (07:52)
[2017-08-10] MEDS: Multivit/Ca/Min/Fe/FA 1 TAB TABLET PO SCH (07:52)
[2017-08-10] MEDS: Furosemide 20 MG/2 ML VIAL IVP SCH (07:52)
[2017-08-10] MEDS: Metoprolol XL (24 HR) Succ 25 MG TAB.ER.24H PO SCH (07:52)
[2017-08-10] MEDS: Ascorbic Acid 500 MG TABLET PO SCH (07:53)
--- NOTE | 2017-08-10 08:14 | Electrocardiograph Report ---
[address] [place] [address] Test Date: 2017-08-07 Pat Name: Enma Rutherford Department: 104 Room: 2A13 Gender: F [employer]: JULIO CESAR : 1945 Requested By: Joel Thao Order Number: [id number] Reading MD: Bryant Lopez Measurements Intervals [place] Rate: 70 P: 97 UT: 178 QRS: -63 QRSD: 154 T: 133 QT: 405 QTc: 425 Interpretive Statements DEMAND AV PACING Electronically Signed On 08-10-2017 8:12:53 EDT by Bryant Lopez
--- NOTE | 2017-08-10 09:38 | Pre-Sedation Evaluation ---
Pre-sedation evaluation - Pre-sedation checklist Date of procedure: 08/10/17 Procedure: [facility] Recent Vitals: Last Vital Signs Temp 97.7 F 08/10/17 07:28 Pulse 71 08/10/17 07:28 Resp 18 08/10/17 07:28 BP 110/72 08/10/17 07:28 Pulse Ox 98 08/10/17 07:28 H&P (including ROS) documented in medical record: Yes Previous reaction to sedatives/anesthetics: No Dietary Status: NPO after Midnight Dentition: No loose teeth or bridges ASA Classification *see protocol: CLASS II-Mild systemic disease Plan of Care: Pt appropriate candidate for procedure/moderate/conscious sedation , Risks/benefits of procedure/sedation discussed w/ patient/family Cardiac Registry (Cardio Only) - Functional Capacity Functional Capacity: < 4 METS - Clincal Frailty Scale Clinical Frailty Scale: Managing Well
[2017-08-10 10:11] LABS: INR 1.4; Prothrombin Time 15.6 Seconds (9.4-12.1)
[2017-08-10] MEDS ORDERED: Heparin 1,000 UNITS/500 mL 500 ML ONE (12:04)
[2017-08-10] MEDS ORDERED: 0.9 % Sodium Chloride 1,000 ML ONE ×2 (12:04→13:59)
[2017-08-10] MEDS ORDERED: *HR* Heparin 10,000 UNIT/10 ML VIAL ONE (12:04)
[2017-08-10] MEDS ORDERED: ISOVUE-370 200 ML INFUS..BTL IV ONE (12:04)
[2017-08-10] MEDS ORDERED: Nitroglycerin 1,000 MCG/10 ML VIAL IV ONE (12:08)
[2017-08-10] MEDS ORDERED: *HR* FentaNYL (PF) 100 MCG/2 ML VIAL ONE (13:59)
[2017-08-10] MEDS ORDERED: *HR* Midazolam HCl 2 MG/2 ML VIAL ONE ×2 (13:59→14:32)
[2017-08-10] MEDS ORDERED: Verapamil 5 MG/2 ML VIAL ONE (14:22)
--- NOTE | 2017-08-10 15:09 | Invasive Diagnostic Lab Proc ---
Name: Enma Rutherford Date of Study: 08/10/2017 Date: 1945 Ht: 64.2in Medical Record#: [id number] Age: 71 Wt: 200.62lb Gender: Female BSA: 1.96 Order #: [id number] BMI: 34.25 Physicians Procedure Physician: Bryant Lopez MD, [facility] Referring MD: Referring MD: Staff Name Position Time In Cortney Lucero RN Monitor 01:57 PM Viktor Ardon RN Drupal Php Developer 01:57 PM Elizabeth Caraballo RT (R) Scrub 01:57 PM Cinthya Elise RN Nurse 01:58 PM SusanAngelita RT (R) 01:58 PM Indications Indication Unstable Angina Procedures Performed Procedure L HRT ARTERY/VENTRICLE ANGIO Pre-Procedure Checklist Informed consent is complete signed and on chart. H&P is on chart. ID band is on and ID verified with patient. Patient NPO for procedure The procedure was described for the patient and questions were answered. ECG is on chart. Plan of Care Patient will tolerate the procedure without complications. Adequate level of comfort will be maintained. Hemodynamics will remain stable Patient will recover from procedure without complications. Respiratory function will be maintained. Cardiac rhythm will remain stable. Patient temperature will be maintained. Patient and/or family have verbalized understanding of the procedure. Patient Education Chief Complaint/Reason for Test: Cardiac Cath Developmental Category: Adult (18-64 years) Developmentally Appropriate for Age: Yes Learning Barriers: None Education Needs: Procedure Education Method: Verbal Information Taught: Cardiac Cath Educational Evaluation: Able to repeat information Intravenous Access Time IV Size Location DC'd Fluid/Drip Rate Units RN 02:04 PM 20g 1 02/08" Patent On Arrival Lt Antecubital Cinthya Elise RN Allergies Penicillins Vital Signs Time BP (mmHg) HR (bpm) O2 Sat. RR (bpm) LOC 01:58 PM / % 5 = Fully awake and oriented or at pre-proc level 01:58 PM / % 5 = Fully awake and oriented or at pre-proc level 02:15 PM / % 4 = Oriented but drowsy 02:33 PM / % 4 = Oriented but drowsy 02:14 PM 124 / 80 70 99 % 02:19 PM 112 / 67 70 92 % 02:24 PM 167 / 141 91 93 % 02:29 PM 116 / 79 98 95 % 02:34 PM 116 / 69 70 95 % 02:39 PM 81 / 58 104 91 % 02:43 PM 96 / 67 70 95 % 02:44 PM 107 / 57 116 95 % 02:49 PM 108 / 77 103 95 % Procedural Medications Time Medication Dose Units Method Given By 02:09 PM Oxygen 4 L/min nasal cannula Viktor Ardon RN 02:15 PM Versed 2 mg Intravenous Viktor Ardon RN 02:15 PM Fentanyl 50 mcg Intravenous Viktor Ardon RN 02:31 PM Versed 1 mg Intravenous Viktor Ardon RN 02:31 PM Fentanyl 25 mcg Intravenous Viktor Ardon RN 02:31 PM Lidocaine 2% 0.5 ml Subcutaneous Bryant Lopez MD, [facility] 02:36 PM Heparin 4000 units Nitroglycerin 200 mcg Verapamil 2.5 mg Intraarterial Bryant Lopez MD, FAC 02:42 PM Lidocaine 2% 19 ml Subcutaneous Bryant Lopez MD, [facility] ASA Classification: CLASS II- Mild systemic disease (i.e. well-controlled diabetes, hypertension, asthma, cigarette smoking) Checo Score Preprocedure Postprocedure Activity 2- Moves 4 extremities sustained head lift Activity 2- Moves 4 extremities sustained head lift Circulation 2- SBP +/= 20 points of pre-anesthetic level Circulation 2- SBP +/= 20 points of pre-anesthetic level Consciousness 2- Awake and alert oriented x 3 Consciousness 2- Awake and alert oriented x 3 O2 Saturation 2- Able to maintain O2 satruation of 92% on room air O2 Saturation 2- Able to maintain O2 satruation of 92% on room air Respiratory 2- Able to deep breathe and cough well Respiratory 2- Able to deep breathe and cough well Total Score 10 Total Score 10 Contrast Agent: Isovue Diagnostic Contrast: 83 ml Total Contrast: 83 ml Fluoro Dose: 2851 mGy Procedure Log Time Note Enter By 01:16 PM CathStat 01:57 PM Pt arrives [facility] 4L [facility] 01[facility]57 PM Pt arrived to optical lab technician 2 at 13:57 [facility] 01:57 PM Cortney Lucero RN Position: Monitor Time in: 13:57 deann 01:57 PM Viktor Ardon RN Position: Drupal Php Developer Time in: 13:57 deann 01:58 PM Elizabeth Caraballo RT (R) Position: Scrub Time in: 13:57 mm: PM Cinthya Elise RN Position: Nurse Time in: :: PM Angelita Davis RT (R) Position: Time in: :58 :58 PM Patient charges- Angio tray pack, Navilyst 3mm J, Pulse Oximetry and ACIST tubing and transducer PM Time: 13:58 Patient comfortable and pain free: Yes PM Time: :58LOC: 5 = Fully awake and oriented or at pre-proc level tsoumm 02:00 PM ASA Class CLASS II- Mild systemic disease (i.e. well-controlled diabetes, hypertension, asthma, cigarette smoking) mm 02:08 PM Physician arrived 14:08 mm 02:08 PM Meet and greet completed 02:08 PM Sign in performed according to hospital policy. mm 02:08 PM Procedure start 14:08 mm 02:09 PM Hair removed from procedure site in procedure lab using clippers. Right wrist & Right groin prepped with Chloraprep by Cinthya Elise RN, then patient was draped. Skin intact. 02:09 PM Time: 14:09 Oxygen on at 4 L/min per nasal cannula by Viktor Ardon RN 02:10 PM Clinical Presentation: Unstable angina 02:10 PM Vitals capture started with the following parameters, Patient=Adult, Interval=5 min, Initial Suwzashi=242 mmHg, Deflation Rate=5 mmHg, Cuff placed on Right Arm 02:13 PM Vitals capture started with the following parameters, Patient=Adult, Interval=5 min, Initial Jivfelhu=351 mmHg, Deflation Rate=5 mmHg, Cuff placed on Right Arm 02:14 PM HR=70 bpm, EKJN=357/80 mmhg, SpO2=99.0 % 02:15 PM Time: 13:58LOC: 5 = Fully awake and oriented or at pre-proc level 02:15 PM Time: 13:58 Patient comfortable and pain free: Yes mm 02:15 PM Time: 14:15 Versed 2 mg Intravenous Given by Viktor Ardon RN [email or web address] 02:15 PM Time: 14:15 Fentanyl 50 mcg Intravenous Given by Viktor Ardon RN 02:16 PM Recorded ECG: HR=74 Condition=Condition 1 02:18 PM Recorded ECG: HR=71 Condition=Condition 1 02:19 PM HR=70 bpm, TEZP=811/67 mmhg, SpO2=92.0 % 02:24 PM HR=91 bpm, VUAR=700/141 mmhg, SpO2=93.0 % 02:29 PM HR=98 bpm, ROEP=642/79 mmhg, SpO2=95.0 % 02:31 PM Time out performed according to hospital policy [email or web address] 02:31 PM Time: 14:31 Versed 1 mg Intravenous Given by Viktor Ardon RN [email or web address] 02:31 PM Time: 14:31 Fentanyl 25 mcg Intravenous Given by Viktor Ardon RN tsdeann 02:31 PM Time: 14:31 0.5 ml Lidocaine 2% to right radial Subcutaneous Given by Bryant Lopez MD, [facility] tsoummers 02:33 PM Time: 14:15 Patient comfortable and pain free: Yes tsoummers 02:33 PM Time: 14:15LOC: 4 = Oriented but drowsy tsoummers 02:34 PM ultrasound utilized to obtain access tsoummers 02:34 PM HR=70 bpm, SQJL=137/69 mmhg, SpO2=95.0 % 02:36 PM Access obtained by percutaneous puncture. 6Fr 10cm Terumo Glidesheath sheath placed in right Radial artery. [id number] tsoummers 02:36 PM Time: 14:36 Patient given 4,000 units Heparin, 200 mcg Nitroglycerin, and 2.5 mg Verapamil Intraarterial by Bryant Lopez MD, [facility]. This is given to reduce risk of vessel spasm and thrombosis. tsoummers 02:37 PM 0.035 260cm Navilyst 3mmJ wire [id number] tsoummers 02:37 PM wire removed tsoummers 02:37 PM 0.035 150cm VSI Alon-Torque wire [id number] tsoummers 02:38 PM Wire removed tsoummers 02:39 PM J wire reinserted tsoummers 02:39 PM OL=022 bpm, NIBP=81/58 mmhg, SpO2=91.0 % 02:39 PM Pressure channel 1 zeroed. 02:40 PM 5Fr TIG catheter inserted over the wire [facility] tsoummers 02:41 PM Catheter removed tsoummers 02:41 PM Wire removed tsoummers 02:41 PM extensive tortuiosity. Unable to use radial access tsoummers 02:42 PM Time: 14:42 19 ml Lidocaine 2% to right groin Subcutaneous Given by Bryant Lopez MD, [facility] tsoummers 02:43 PM Access obtained by percutaneous puncture. 5Fr 10cm Terumo [place] sheath placed in right Femoral artery. [id number] tsoummers 02:43 PM NIBP STAT measurement started. 02:43 PM HR=70 bpm, NIBP=96/67 mmhg, SpO2=95.0 % 02:44 PM 0.035 145cm Navilyst 3mmJ wire [id number] tsoummers 02:44 PM 5Fr FL 4 catheter inserted over the wire [facility] tsoummers 02:44 PM VN=513 bpm, VCHO=665/57 mmhg, SpO2=95.0 % 02:45 PM wire removed tsoummers 02:46 PM Recorded Pressure: Ao, HR=89, Condition=Condition 1 (Aorta) Ao 98/76/86 02:47 PM LCA angiography performed in multiple views. tsoummers 02:47 PM Catheter removed tsoummers 02:47 PM 5Fr FR 4 catheter inserted over the wire [facility] tsoummers 02:47 PM RCA angiography performed in multiple views. tsoummers 02:47 PM Lesion found in Distal LMCA. Pre Stenosis: 30 Pre YURIY Flow: tsoummers 02:47 PM Left Main Coronary Artery with 30% stenosis tsoummers 02:47 PM Proximal Left Anterior Descending Coronary Artery with 20% stenosis. If graft is supplying this territory, 0 % stenosis. tsoummers 02:47 PM Mid/Distal Left Anterior Descending Coronary Artery and diagonal branches with 30% stenosis. If graft is supplying this area, 0 % stenosis tsoummers 02:47 PM Lesion found in Proximal LAD. Pre Stenosis: 20 Pre YURIY Flow: tsoummers 02:48 PM Lesion found in Mid LAD. Pre Stenosis: 30 Pre YURIY Flow: tsoummers 02:48 PM Recorded Pressure: Ao, HR=93, Condition=Condition 1 (Aorta) Ao 96/77/86 02:48 PM Time: 14:33LOC: 4 = Oriented but drowsy tsoumm 02:48 PM Time: 14:33 Patient comfortable and pain free: Yes tsoummers 02:49 PM Lesion found in Mid RCA. Pre Stenosis: 20 Pre YURIY Flow: mm 02:49 PM Right Coronary, Right Posterior Descending Arteries with Right Posterolateral and Acute Marginal branches with 20 % stenosis. If graft is supplying this area, 0 % stenosis tsoumm 02:49 PM NR=629 bpm, PBHZ=687/77 mmhg, SpO2=95.0 % 02:49 PM Catheter removed 02:49 PM 5Fr Pigtail catheter inserted over the wire [facility] oumm 02:49 PM Pressure channel 1 zeroed. 02:50 PM Recorded Pressure: LV, HR=87, Condition=Condition 1 (Left Ventricle) LV 93/11/25 02:50 PM Coronary Dominance: Co-dominant tsoumm 02:50 PM Catheter selectively placed in left ventricle tsoumm 02:50 PM Bolus angiogram of left Ventricle complete: 11 ml/sec for a total of 35 mls tsoummers 02:50 PM Bolus angiogram of left Ventricle complete: 10 ml/sec for a total of 20 mls tsoummers 02:51 PM Recorded Pressure: LV, Ao, BF=470, Condition=Condition 1 (Left Ventricle) LV 90/6/21, (Aorta) Ao 92/63/74 02:51 PM Catheter removed 02:52 PM Bolus angiogram of right Femoral complete: 2 ml/sec for a total of 4 mls tsoummers 02:52 PM Procedure completed at 14:52 08/10/2017oumm 02:52 PM Did you address YURIY flow and Dominance? Yes oumm 02:53 PM Sign out completed: Radiation Dose 255.14 mGy, 2851.01 cGy/cm2 Fluoro Time: 3.6 Isovue 370 - 200ml contrast 83 ml given by Bryant Lopez MD, [facility]. Complications: NoneCardiac Rehab Consult needed: NoConfirmed administered medications: Yes oummers 02:53 PM Isovue 370 - 200ml,1 Bottle(s) used. tsoumm 02:53 PM Arterial sheath pulled, Mynx closure device used and was Successful [id number] S/N. tsoumm 02:55 PM What is the NYHA Class? Class 3 oumm 02:55 PM Estimated Blood Loss: less than 20cc tsoumm 02:55 PM Post ECG Paced tsoumm 02:55 PM Post Blood Pressure 112/70 tsoumm 02:56 PM Information taught Cardiac Cath, Mynx, and Vasc Band oumm 02:56 PM Education needs Procedure, Plan of Care, and Responsibilities of Patient in Care oumm 02:56 PM Learning barriers :None oumm 02:56 PM Education Methods Verbal oumm 02:56 PM Education evaluation Able to repeat information mm 02:56 PM Site status No bleeding/hematoma - Rt Groin as reported by Elizabeth Caraballo RT (R) at 14:56 tsoumm 02:56 PM Opsite applied tsoumm 02:56 PM Site status No bleeding/hematoma - Rt Wrist as reported by Elizabeth Caraballo RT (R) at 14:56 [facility] 02:56 PM Plavix, Effient or Brilinta given No tsoummers 02:57 PM Delay to floor No tsoummers 02:57 PM no family present oumm 02:57 PM Complications: None tsoummers 02:57 PM Fluoro Time: 3.6 oummers 02:57 PM Arterial sheath pulled, Vasc Band closure device used and was Successful S/N. oumm 02:57 PM 10 ml air in Vasc Band. [facility] 03:00 PM Report given to Germania TABARES Pt taken to 2A Room #13. 15:00 [facility] 03:00 PM Patient out of room: 15:00 [facility] Complications Complication None Hemodynamics Pressures Site Systolic/A Wave Diastolic/V Wave Mean AO 98 76 86 AO 96 77 86 LV 93 11 25 LV 90 6 21 AO 92 63 74 Post Procedure Information Blood Pressure: 112/70 mmHg Rhythm: Paced Post procedural instructions were given Closure Device Time Device Success/Fail 08/10/2017 2:53:00 PM MynxGrip Successful 08/10/2017 2:57:00 PM Mechanical Compression Successful Site Checks Time Location Status Staff Sheath In? Note 02:56 PM Rt Groin No bleeding/hematoma Elizabeth Caraballo RT (R) 02:56 PM Rt Wrist No bleeding/hematoma Elizabeth Caraballo RT (R) Pulses Time Site Pre-Procedure Post-Procedure Note Bilateral DP & PT 2+ Bilateral radial 2+ Updated by Cortney Lucero RN on 08/10/2017 3:01:36 PM electronically signed on 08/10/2017 3:02:09 PM with status of Final
[2017-08-10] MEDS: *HR* Rivaroxaban 10 MG TABLET PO SCH (18:14)
[2017-08-10] MEDS: *HR* OxyCODONE/APAP 10/325 TABLET PO PRN (18:14)
--- NOTE | 2017-08-10 18:39 | Internal Med Progress Note ---
Date of Encounter: 08/10/17 Time of Encounter: 11:00 - Assessment and plan (1) (HFpEF) heart failure with preserved ejection fraction Current Visit: Yes Status: Acute Assessment and plan: Acute on chronic HFpEF. Last ECHO EF 50% with diastolic dysfunction. BNP 356. On Lasix 20 mg IV daily now. Monitor BP, patient was borderline hypotensive. Monitor I/O, daily weights, fluid and salt restriction. Cardiology following. catherization today. (2) Atrial fibrillation Current Visit: Yes Status: Chronic Assessment and plan: Chronic Afib on Xarelto. BB given with caution given BP borderline. Patient is ventricular paced. Qualifiers: Atrial fibrillation type: chronic Qualified Code(s): I48.2 - Chronic atrial fibrillation (3) COPD (chronic obstructive pulmonary disease) Current Visit: Yes Status: Chronic Assessment and plan: Hx of chronic COPD. Stable. Exposure to 2nd hand smoke from and son supplement O2 as needed. Qualifiers: COPD type: unspecified COPD Qualified Code(s): J44.9 - Chronic obstructive pulmonary disease, unspecified (4) Hypothyroidism Current Visit: Yes Status: Chronic Assessment and plan: Hx of chronic hypothyroidism. TSH 2.27 c/w home dose synthroid Qualifiers: Hypothyroidism type: acquired Qualified Code(s): E03.9 - Hypothyroidism, unspecified (5) GERD (gastroesophageal reflux disease) Current Visit: Yes Status: Chronic Assessment and plan: Chronic GERD c/w Prilosec Qualifiers: Esophagitis presence: esophagitis presence not specified Qualified Code(s) : K21.9 - Gastro-esophageal reflux disease without esophagitis (6) HTN (hypertension) Current Visit: Yes Status: Chronic Assessment and plan: Hx of chronic HTN on Metoprolol BP is now low. BB on for A fib. Will hold if BP too low. Qualifiers: Hypertension type: essential hypertension Qualified Code(s): I10 - Essential (primary) hypertension - Time Spent With Patient Total time spent is greater than 50% in coordination of care (as documented) at patient's floor/unit and/or counseling patient: - Subjective Interval history: Reports feeling well, no complaints apart from being nervous about catherization today. - Constitutional Vitals: Temp Pulse Resp BP Pulse Ox 98 F 108 18 108/69 97 08/10/17 17:00 08/10/17 17:00 08/10/17 17:00 08/10/17 17:00 08/10/17 16:14 General appearance: Present: cooperative, mild distress (SOB), A&O X 3, pleasant , obese, answers questions appropriately Exam: General: Alert and oriented. Somewhat frail. Skin: Normal color, no rash, no lesions. HEENT: EOMI, pupils equal, round and reactive. Cardiovascular: Regular rate Lungs: clear breath sounds. Abdomen:Soft, non-tender, no rigidity. Extremities:No deformity, no edema or tenderness, no joint swelling or clubbing. Neurological:Normal cognition, no numbness. Rest of the physical exam is non contributory Internal Medicine: Result - Labs CBC & Chem 7: 08/10/17 05:05 08/10/17 05:05 Labs: Short CBC 08/10/17 Range/Units 05:05 WBC 6.4 (4.3-11.1) K/mcL Hgb 10.6 L (11.5-15.4) g/dL Hct 35.9 (35.3-44.9) % Plt Count 182 (140-400) K/mcL Neutrophils # 3.4 (1.6-8.9) K/mcL BMP 08/10/17 05:05 Sodium 138 Potassium 4.1 Chloride 98 Carbon Dioxide 36 H BUN 9 Creatinine 0.71 Glucose 105 Calcium 9.5 Liver Function 08/10/17 Range/Units 05:05 Total Bilirubin 0.7 (0.3-1.0) mg/dL AST 16 (13-39) Units/L ALT 6 L (7-52) Units/L Alkaline Phosphatase 68 (34-104) Units/L Albumin 3.4 L (3.5-5.7) g/dL - ABG Interpretation ABG results: PT/INR, D-dimer PT 15.6 Seconds (9.4-12.1) H D 08/10/17 09:13 - VTE Documentation of Mechanical Device: Intermittent pneumatic compression device Consult Discharge Plan - Plan Referrals: Hawk Sarmiento MD [Primary Care Provider] - 08/16/17 1:15 pm (Please follow up as schedule... )
[2017-08-10] MEDS: traZODone 50 MG TABLET PO SCH (21:51)
[2017-08-11] MEDS: Levalbuterol Neb 1.25 MG/3 ML IH SCH ×4 (03:43→22:22)
[2017-08-11 04:27] LABS: Basophils # 0.1 K/mcL (0.0-0.2); Basophils % 1.1 %; Eosinophils # 0.2 K/mcL (0.0-0.6); Eosinophils % 3.1 %; Hematocrit 36.2 % (35.3-44.9); Hemoglobin 10.7 g/dL (11.5-15.4); Immature Granulocytes % 0.3 % (0-4); Lymphocytes # 1.6 K/mcL (0.6-4.6); Lymphocytes % 24.3 %; Mean Corpuscular HGB Conc 29.6 g/dL (31.6-35.5); Mean Corpuscular Hemoglobin 26.4 pg (28.0-33.3); Mean Corpuscular Volume 89.2 fL (83.0-100.0); Mean Platelet Volume 11.8 fL (9.4-12.4); Monocytes # 0.8 K/mcL (0.0-1.3); Monocytes % 11.6 %; Neutrophils # 3.9 K/mcL (1.6-8.9); Platelet Count 177 K/mcL (140-400); Red Blood Count 4.06 M/mcL (3.82-4.97); Red Cell Distribution Width 16.4 % (11.5-14.5); Segmented Neutrophils % 59.6 %
[2017-08-11 04:52] LABS: BUN/Creatinine Ratio 11 (6-26); Blood Urea Nitrogen 10 mg/dL (8-23); Calcium 9.2 mg/dL (8.6-10.3); Carbon Dioxide 37 mEq/L (23-29); Chloride 98 mEq/L (98-107); Glucose 98 mg/dL (70-105); Osmolality,Calculated 289 (280-300); Potassium 3.9 mEq/L (3.5-5.1); Sodium 140 mEq/L (136-145); eGFR For African Americans > 60 (> 60); eGFR For Non-African Americans 59 (> 60)
[2017-08-11] MEDS: Metoprolol XL (24 HR) Succ 25 MG TAB.ER.24H PO SCH (08:43)
[2017-08-11] MEDS: Multivit/Ca/Min/Fe/FA 1 TAB TABLET PO SCH (08:43)
[2017-08-11] MEDS: Ascorbic Acid 500 MG TABLET PO SCH (08:43)
[2017-08-11] MEDS: Aspirin Enteric Coated 81 MG Tablet PO SCH (08:43)
[2017-08-11] MEDS: Gabapentin 100 MG CAPSULE PO SCH ×3 (08:43→21:58)
[2017-08-11] MEDS: Furosemide 20 MG/2 ML VIAL IVP SCH (08:43)
[2017-08-11] MEDS: Cholecalciferol (D-3) 1,000 UNIT TABLET PO SCH (08:43)
--- NOTE | 2017-08-11 10:53 | Cardiology Progress Note ---
Date of Encounter: 08/11/17 Time of Encounter: 08:00 Assessment and Plan (1) Acute exacerbation of CHF (congestive heart failure) Current Visit: Yes Status: Acute Per cardiology: -Admitted with CHF exacerbation. Vascular congestion on CXR. BNP only midly elevated 356 (lower than previous BNPs). -Reports compliance with low Na and fluid restriction, compliant with home Lasix. -TTE 03/2017 EF low normal 50%. Repeat TTE with LVEF 35-40%. -Patient underwent LHC yesterday with mild, non-obstructive CAD. Non-ischemic cardiomyopathy. On BB, not on mami/arb due to hypotension. -Of note, has net positive fluid balance of 400ml. However, patient reports symptom improvement. Euvolemic on exam. -Recommend strict I/Os, Na and fluid restriction, daily weights. -CHF education reinforced with patient. -Will increase oral lasix to 40mg BID (home dose was 20mg BID). -Consider addition of mami/arb in outpatient setting. -Cardiology will sign off and will follow in outpateint setting. Follow up set. Qualifiers: Heart failure type: diastolic Qualified Code(s): I50.33 - Acute on chronic diastolic (congestive) heart failure (2) Atrial fibrillation Current Visit: Yes Status: Chronic Per cardiology: -Known a.fib. -ON BB> -AVerage HR 92, a.fib with intermittent pacing. -On xarelto for anticoagulation. -Will continue to follow in outpatient setting. Qualifiers: Atrial fibrillation type: chronic Qualified Code(s): I48.2 - Chronic atrial fibrillation (3) Pulmonary hypertension Current Visit: Yes Status: Chronic Per cardiology: -Severe phtn TTE 03/2017 RVSP 64mmHg. Seen and evaluated by pulmonology. Discussion w patient/family: The assessment and plan as outlined above was discussed with the patient who expressed understanding and agreement. All questions were answered. Thank you for involving us in the care of your patient. Please call with any questions. Discussed and reviewed with . Subjective Principal diagnosis: CHF Interval history: Patient reports breathing is about baseline. States edema is improved. Denies chest pain. Denies issues using right leg or walking. Objective Vital Signs, Last 4 Hours Temp Pulse Resp BP Pulse Ox 08/11/17 07:07 98.4 F 66 16 113/73 100 General: Conversant, No Apparent Distress HEENT: Atraumatic, Normocephaly, Mucus Membranes Moist Neck: No JVD, Normal carotid pulses Cardiac: Normal S1 and S2, No Murmur, Other (Irregularly irregular ) Lungs: Other (Lung sounds diminished throughout. ) Neuro: Alert and responsive, No focal deficits noted Abdomen: Soft, Non-Tender Skin: No rashes noted on visualized skin Musculoskeletal: No Chest Wall Tenderness Extremities: No Clubbing, No Cyanosis, No Edema, Normal Pulses Results 08/11/17 03:21 08/11/17 03:21 Lab Results Active Medications Acetaminophen (Tylenol) 650 mg PO Q6HR PRN PRN Reason: Mild Pain/Fever Stop: 02/06/18 16:28 Ascorbic Acid (Vitamin C) 500 mg PO DAILY [facility] Stop: 02/07/18 09:01 Last Admin: 08/11/17 08:43 Dose: 500 mg Aspirin (Aspirin Ec) 81 mg PO DAILY [facility] Stop: 02/07/18 09:01 Last Admin: 08/11/17 08:43 Dose: 81 mg Docusate Sodium (Colace) 100 mg PO BID [facility] PRN Reason: Protocol Stop: 02/06/18 21:01 Last Admin: 08/11/17 08:43 Dose: 100 mg Duloxetine HCl (Cymbalta) 60 mg PO DAILY [facility] Stop: 02/07/18 09:01 Last Admin: 08/11/17 08:43 Dose: 60 mg Ferrous Sulfate (Ferrous Sulfate) 325 mg PO DAILY [facility] Stop: 02/07/18 09:01 Last Admin: 08/11/17 08:43 Dose: 325 mg Furosemide (Lasix) 20 mg PO BIDDIURETIC [facility] Stop: 02/10/18 17:01 Gabapentin (Neurontin) 100 mg PO TID [facility] Stop: 02/06/18 21:01 Last Admin: 08/11/17 08:43 Dose: 100 mg Levalbuterol HCl (Xopenex) 1.25 mg IH [id number] [facility] Stop: 02/06/18 22:01 Last Admin: 08/11/17 10:38 Dose: 1.25 mg Levothyroxine Sodium (Synthroid) 88 mcg PO QAM@0630 [facility] Stop: 02/07/18 06:31 Last Admin: 08/11/17 06:22 Dose: 88 mcg Metoprolol Succinate (Toprol Xl) 25 mg PO DAILY [facility] Stop: 02/07/18 09:01 Last Admin: 08/11/17 08:43 Dose: 25 mg Multivitamins/Calcium (Thera M Plus) 1 tab PO DAILY [facility] Stop: 02/07/18 09:01 Last Admin: 08/11/17 08:43 Dose: 1 tab Naloxone HCl (Narcan) 0.4 mg IVP Q2MIN PRN PRN Reason: SEE COMMENTS Stop: 02/06/18 16:28 Nitroglycerin (Nitroglycerin) 0.4 mg SL Q5MIN PRN PRN Reason: Chest Pain Stop: 02/06/18 16:33 Omeprazole (Prilosec) 40 mg PO QAM@0730 [facility] Stop: 02/07/18 07:31 Last Admin: 08/11/17 08:43 Dose: 40 mg Ondansetron HCl (Zofran) 4 mg IVP Q6HR PRN; Protocol PRN Reason: Nausea And Vomiting Stop: 02/06/18 17:29 Last Admin: 08/07/17 17:51 Dose: 4 mg Oxycodone/Acetaminophen (Percocet 10/325) 1 each PO Q6HR PRN PRN Reason: Severe Pain Stop: 02/06/18 16:56 Last Admin: 08/10/17 18:14 Dose: 1 each Polyethylene Glycol (Miralax) 17 gm PO DAILY [facility] Stop: 02/07/18 09:01 Last Admin: 08/11/17 08:43 Dose: 17 gm Rivaroxaban (Xarelto) 20 mg PO 1700 [facility] Stop: 02/06/18 17:01 Last Admin: 08/10/17 18:14 Dose: 20 mg Sertraline HCl (Zoloft) 50 mg PO DAILY [facility] Stop: 02/07/18 09:01 Last Admin: 08/11/17 08:44 Dose: 50 mg Simvastatin (Zocor) 40 mg PO DAILY [facility] PRN Reason: Protocol Stop: 02/07/18 09:01 Last Admin: 08/11/17 08:44 Dose: 40 mg Trazodone HCl (Trazodone) 50 mg PO HS [facility] Stop: 02/06/18 21:01 Last Admin: 08/10/17 21:51 Dose: 50 mg Vitamin D (Vitamin D) 1,000 unit PO DAILY [facility] Stop: 02/07/18 09:01 Last Admin: 08/11/17 08:43 Dose: 1,000 unit Laboratory Tests 08/11/17 08/11/17 03:21 03:21 Hgb 10.7 L Creatinine 0.94 - Imaging and Cardiology Chest Xray: report reviewed Echo: report reviewed Cardiac cath: report reviewed - EKG Interpretation EKG results cardiology: other (Telemetry reviewed with average HR previous 12 hours noted to be 92, a.fib intermittent paced rhythm noted.) - VTE Documentation of Mechanical Device: Intermittent pneumatic compression device Consult Discharge Plan - Plan Referrals: Hawk Sarmiento MD [Primary Care Provider] - 08/16/17 1:15 pm (Please follow up as schedule... )
--- NOTE | 2017-08-11 13:53 | Internal Med Progress Note ---
Date of Encounter: 08/11/17 Time of Encounter: 10:00 - Assessment and plan (1) (HFpEF) heart failure with preserved ejection fraction Current Visit: Yes Status: Acute Assessment and plan: Acute on chronic HFpEF. Last ECHO EF 50% with diastolic dysfunction. BNP 356. On Lasix 40 mg PO BID per cardio recommendation. Monitor BP, patient was borderline hypotensive. Monitor I/O, daily weights, fluid and salt restriction. ACEI not started because of low BP. s/p cardiac catherization 08/10/17 with mild nonobstructive CAD, non ischemic cardiomyopathy. Patient is in fair condition, plan for discharge on Sunday. (2) Atrial fibrillation Current Visit: Yes Status: Chronic Assessment and plan: Known Afib on BB. Rate controlled. Xarelto for AC. Qualifiers: Atrial fibrillation type: chronic Qualified Code(s): I48.2 - Chronic atrial fibrillation (3) COPD (chronic obstructive pulmonary disease) Current Visit: Yes Status: Chronic Assessment and plan: Hx of chronic COPD. Stable. Exposure to 2nd hand smoke from and son supplement O2 as needed. Qualifiers: COPD type: unspecified COPD Qualified Code(s): J44.9 - Chronic obstructive pulmonary disease, unspecified (4) Hypothyroidism Current Visit: Yes Status: Chronic Assessment and plan: Hx of chronic hypothyroidism. TSH 2.27 c/w home dose synthroid Qualifiers: Hypothyroidism type: acquired Qualified Code(s): E03.9 - Hypothyroidism, unspecified (5) GERD (gastroesophageal reflux disease) Current Visit: Yes Status: Chronic Assessment and plan: Chronic GERD c/w Prilosec Qualifiers: Esophagitis presence: esophagitis presence not specified Qualified Code(s) : K21.9 - Gastro-esophageal reflux disease without esophagitis (6) HTN (hypertension) Current Visit: Yes Status: Chronic Assessment and plan: Hx of chronic HTN on Metoprolol BP is borderline. Will hold if BP too low. Qualifiers: Hypertension type: essential hypertension Qualified Code(s): I10 - Essential (primary) hypertension - Time Spent With Patient Total time spent is greater than 50% in coordination of care (as documented) at patient's floor/unit and/or counseling patient: - Subjective Interval history: Reports feeling fair, no complaints today. - Constitutional Vitals: Temp Pulse Resp BP Pulse Ox 98.4 F 68 16 90/60 95 08/11/17 11:14 08/11/17 11:14 08/11/17 11:14 08/11/17 11:14 08/11/17 11:14 General appearance: Present: cooperative, mild distress (SOB), A&O X 3, pleasant , obese, answers questions appropriately Exam: General: Alert and oriented. Somewhat frail. Skin: Normal color, no rash, no lesions. HEENT: EOMI, pupils equal, round and reactive. Cardiovascular: Regular rate Lungs: clear breath sounds. Abdomen:Soft, non-tender, no rigidity. Extremities:No deformity, no edema or tenderness, no joint swelling or clubbing. Neurological:Normal cognition, no numbness. Rest of the physical exam is non contributory Internal Medicine: Result - Labs CBC & Chem 7: 08/11/17 03:21 08/11/17 03:21 Labs: Short CBC 08/11/17 Range/Units 03:21 WBC 6.6 (4.3-11.1) K/mcL Hgb 10.7 L (11.5-15.4) g/dL Hct 36.2 (35.3-44.9) % Plt Count 177 (140-400) K/mcL Neutrophils # 3.9 (1.6-8.9) K/mcL BMP 08/11/17 03:21 Sodium 140 Potassium 3.9 Chloride 98 Carbon Dioxide 37 H BUN 10 Creatinine 0.94 Glucose 98 Calcium 9.2 - ABG Interpretation ABG results: PT/INR, D-dimer PT 15.6 Seconds (9.4-12.1) H D 08/10/17 09:13 - VTE Documentation of Mechanical Device: Intermittent pneumatic compression device Consult Discharge Plan - Plan Referrals: Hawk Sarmiento MD [Primary Care Provider] - 08/16/17 1:15 pm (Please follow up as schedule... )
[2017-08-11] MEDS ORDERED: Furosemide 20 MG TABLET PO SCH (17:00)
[2017-08-11] MEDS: *HR* Rivaroxaban 10 MG TABLET PO SCH (17:49)
[2017-08-11] MEDS: Furosemide 40 MG TABLET PO SCH (17:49)
[2017-08-11] MEDS: traZODone 50 MG TABLET PO SCH (21:58)
[2017-08-11] MEDS: *HR* OxyCODONE/APAP 10/325 TABLET PO PRN (21:59)
[2017-08-12] MEDS: Levalbuterol Neb 1.25 MG/3 ML IH SCH ×4 (03:31→21:44)
[2017-08-12 07:01] LABS: Basophils # 0.1 K/mcL (0.0-0.2); Basophils % 0.8 %; Eosinophils # 0.2 K/mcL (0.0-0.6); Eosinophils % 3.4 %; Hematocrit 37.5 % (35.3-44.9); Hemoglobin 11.4 g/dL (11.5-15.4); Immature Granulocytes % 0.3 % (0-4); Lymphocytes # 1.5 K/mcL (0.6-4.6); Lymphocytes % 21.6 %; Mean Corpuscular HGB Conc 30.4 g/dL (31.6-35.5); Mean Corpuscular Hemoglobin 27.1 pg (28.0-33.3); Mean Corpuscular Volume 89.1 fL (83.0-100.0); Mean Platelet Volume 11.6 fL (9.4-12.4); Monocytes # 0.7 K/mcL (0.0-1.3); Monocytes % 10.1 %; Neutrophils # 4.6 K/mcL (1.6-8.9); Platelet Count 169 K/mcL (140-400); Red Blood Count 4.21 M/mcL (3.82-4.97); Red Cell Distribution Width 16.4 % (11.5-14.5); Segmented Neutrophils % 63.8 %
[2017-08-12 07:26] LABS: Alanine Aminotransferase 7 Units/L (7-52); Albumin 3.6 g/dL (3.5-5.7); Albumin/Globulin Ratio 1.1 (1.1-2.2); Alkaline Phosphatase 73 Units/L (34-104); Aspartate Amino Transferase 16 Units/L (13-39); BUN/Creatinine Ratio 15 (6-26); Bilirubin,Total 0.8 mg/dL (0.3-1.0); Blood Urea Nitrogen 10 mg/dL (8-23); Calcium 9.4 mg/dL (8.6-10.3); Carbon Dioxide 38 mEq/L (23-29); Chloride 98 mEq/L (98-107); Globulin 3.2 g/dL (2.4-3.5); Glucose 98 mg/dL (70-105); Osmolality,Calculated 287 (280-300); Potassium 3.9 mEq/L (3.5-5.1); Sodium 139 mEq/L (136-145); Total Protein 6.8 g/dL (6.4-8.9); eGFR For African Americans > 60 (> 60); eGFR For Non-African Americans > 60 (> 60)
--- NOTE | 2017-08-12 08:02 | Discharge Summary ---
Orders not resulted at time of discharge: Pending orders 08/08/17 13:04 EKG [ECG 12 lead ECG] [ECG] Stat Date of Encounter: 08/12/17 Time of Encounter: 08:00 Hospital course: Ms. Rutherford is a 71 year old female - Time Spent with Patient Total time spent providing and/or coordinating discharge services: - Discharge Medications Home Medications: Aspirin Enteric Coated [Aspirin EC] 81 mg PO QAM 12/14/14 [History] Duloxetine HCl [Cymbalta] 60 mg PO QAM 12/14/14 [History] Levothyroxine [Synthroid] 88 mcg PO QAM 03/24/15 [History] Polyethylene Glycol 3350 [MiraLAX] 17 gm PO DAILY PRN 08/31/15 [History] Metoprolol XL (24 HR) Succ [Toprol Xl] 25 mg PO DAILY 03/14/17 [History] OxyCODONE/APAP 10/325 [Percocet 10/325 MG] 1 each PO Q6HR PRN 5 Days #15 tablet 03/20/17 [Rx] Ascorbic Acid [Vitamin C] 500 mg PO DAILY 08/07/17 [History] Cholecalciferol (Vitamin D3) [Vitamin D3] 10,000 unit PO MO 08/07/17 [History] Digoxin [Lanoxin] 125 mcg PO 1200 08/07/17 [History] Docusate [Colace] 100 mg PO BID 08/07/17 [History] Ferrous Sulfate 325 mg PO DAILY 08/07/17 [History] Furosemide [Lasix] 20 mg PO BID 08/07/17 [History] Gabapentin [Neurontin] 100 mg PO TID 08/07/17 [History] Mv-Mn/FA/Vit K/Lycop/Lut/Coq10 [Daily Multivitamin Capsule] 1 cap PO DAILY 08/07 [History] Nitroglycerin [Nitrostat] 0.4 mg SL Q5MIN PRN 08/07/17 [History] Omeprazole [PriLOSEC] 40 mg PO QAM 08/07/17 [History] Rivaroxaban [Xarelto] 20 mg PO 1700 08/07/17 [History] Sertraline [Zoloft] 50 mg PO DAILY 08/07/17 [History] Simvastatin [Zocor] 40 mg PO DAILY 08/07/17 [History] traZODone [TraZODone] 50 mg PO HS 08/07/17 [History] Allergies/Adverse Reactions: 3 Allergy/AdvReac Type Severity Reaction Status Date / Time Penicillins [PCN] Allergy Blister Verified 08/07/17 14:46 Date of admission: 08/08/17 10:54 Primary care physician: Hawk Sarmiento MD - Constitutional Vitals: Temp Pulse Resp BP Pulse Ox 97.6 F 75 16 99/64 98 08/12/17 07:25 08/12/17 07:25 08/12/17 07:25 08/12/17 07:25 08/12/17 07:25 General appearance: Present: cooperative, mild distress (SOB), A&O X 3, pleasant , obese, answers questions appropriately - Patient Status Condition: Fair - Discharge Instructions Follow Up With: Hawk Sarmiento MD [Primary Care Provider] - 08/16/17 1:15 pm (Please follow up as schedule... ) - VTE Documentation of Mechanical Device: Intermittent pneumatic compression device
[2017-08-12] MEDS: *HR* OxyCODONE/APAP 10/325 TABLET PO PRN ×2 (09:00→22:00)
[2017-08-12] MEDS: Aspirin Enteric Coated 81 MG Tablet PO SCH (09:00)
[2017-08-12] MEDS: Metoprolol XL (24 HR) Succ 25 MG TAB.ER.24H PO SCH (09:01)
[2017-08-12] MEDS: Gabapentin 100 MG CAPSULE PO SCH ×3 (09:01→22:00)
[2017-08-12] MEDS: Multivit/Ca/Min/Fe/FA 1 TAB TABLET PO SCH (09:01)
[2017-08-12] MEDS: Cholecalciferol (D-3) 1,000 UNIT TABLET PO SCH (09:01)
[2017-08-12] MEDS: Furosemide 40 MG TABLET PO SCH ×2 (09:01→16:06)
[2017-08-12] MEDS: Ascorbic Acid 500 MG TABLET PO SCH (09:02)
[2017-08-12] MEDS: *HR* Rivaroxaban 10 MG TABLET PO SCH (16:05)
--- NOTE | 2017-08-12 16:46 | Internal Med Progress Note ---
Date of Encounter: 08/12/17 Time of Encounter: 16:46 - Assessment and plan (1) (HFpEF) heart failure with preserved ejection fraction Current Visit: Yes Status: Acute Assessment and plan: Acute on chronic HFpEF. Last ECHO EF 50% with diastolic dysfunction. BNP 356. On Lasix 40 mg PO BID per cardio recommendation. Monitor BP, patient was borderline hypotensive. Monitor I/O, daily weights, fluid and salt restriction. ACEI not started because of low BP. s/p cardiac catherization 08/10/17 with mild nonobstructive CAD, non ischemic cardiomyopathy. Patient is in fair condition, plan for discharge on Sunday. (2) COPD (chronic obstructive pulmonary disease) Current Visit: Yes Status: Chronic Assessment and plan: Hx of chronic COPD. Stable. Exposure to 2nd hand smoke from and son supplement O2 as needed. Qualifiers: COPD type: COPD with acute lower respiratory infection Qualified Code(s): J44.0 - Chronic obstructive pulmonary disease with acute lower respiratory infection (3) Hypothyroidism Current Visit: Yes Status: Chronic Assessment and plan: Hx of chronic hypothyroidism. TSH 2.27 c/w home dose synthroid Qualifiers: Hypothyroidism type: acquired Qualified Code(s): E03.9 - Hypothyroidism, unspecified (4) Atrial fibrillation Current Visit: Yes Status: Chronic Assessment and plan: Known Afib on BB. Rate controlled. Xarelto for AC. Qualifiers: Atrial fibrillation type: chronic Qualified Code(s): I48.2 - Chronic atrial fibrillation (5) GERD (gastroesophageal reflux disease) Current Visit: Yes Status: Chronic Assessment and plan: prilosec Qualifiers: Esophagitis presence: esophagitis presence not specified Qualified Code(s) : K21.9 - Gastro-esophageal reflux disease without esophagitis (6) HTN (hypertension) Current Visit: Yes Status: Chronic Assessment and plan: Metoprolol. Had not been started on ARB/ KELLEN inhibitor due to hypotension. Per cardiology, will consider addition of kellen/arb in outpatient setting. Qualifiers: Hypertension type: essential hypertension Qualified Code(s): I10 - Essential (primary) hypertension - Time Spent With Patient Total time spent is greater than 50% in coordination of care (as documented) at patient's floor/unit and/or counseling patient: less than 15 minutes - Subjective Interval history: Pt denies chest pain and SOB improving. Denies fever, chills, N/V, constipation or diarrhea. - Constitutional Vitals: Temp Pulse Resp BP Pulse Ox 97.5 F L 69 17 126/74 96 08/12/17 15:56 08/12/17 15:56 08/12/17 15:56 08/12/17 15:56 08/12/17 15:56 General appearance: Present: cooperative, mild distress (SOB), A&O X 3, pleasant , obese, answers questions appropriately - Head Head exam: Present: atraumatic, normocephalic - Eye Eye exam: Present: PERRL, conjuntiva pink, sclera anicteric Pupils: Present: PERRL - Neck Neck exam general surgery: Present: supple, trachea midline. Absent: lymphadenopathy - Respiratory Respiratory exam: Present: CTAB. Absent: accessory muscle use, rales, rhonchi, wheezes - Cardiovascular Cardiovascular exam: Present: irregular rhythm, +S1, +S2. Absent: diastolic murmur, gallop, rubs, systolic murmur - GI/Abdominal GI/Abdominal exam: Present: normal bowel sounds, soft, no peritoneal signs. Absent: distended, tenderness - Extremities Exam Extremities exam: Present: pedal edema, warm, radial pulses palpable and symmetrical. Absent: calf tenderness, cyanotic - Neurological Exam Neurological exam: Present: CN II-XII intact, oriented X3, no focal deficits. Absent: pronater drift, facial droop, speech deficit - Skin Skin exam: Present: dry, intact Internal Medicine: Result - Labs CBC & Chem 7: 08/12/17 06:38 08/12/17 06:38 Labs: Short CBC 08/12/17 Range/Units 06:38 WBC 7.1 (4.3-11.1) K/mcL Hgb 11.4 L (11.5-15.4) g/dL Hct 37.5 (35.3-44.9) % Plt Count 169 (140-400) K/mcL Neutrophils # 4.6 (1.6-8.9) K/mcL BMP 08/12/17 06:38 Sodium 139 Potassium 3.9 Chloride 98 Carbon Dioxide 38 H BUN 10 Creatinine 0.68 Glucose 98 Calcium 9.4 Liver Function 08/12/17 Range/Units 06:38 Total Bilirubin 0.8 (0.3-1.0) mg/dL AST 16 (13-39) Units/L ALT 7 (7-52) Units/L Alkaline Phosphatase 73 (34-104) Units/L Albumin 3.6 (3.5-5.7) g/dL - ABG Interpretation ABG results: PT/INR, D-dimer PT 15.6 Seconds (9.4-12.1) H D 08/10/17 09:13 - VTE Documentation of Mechanical Device: Intermittent pneumatic compression device Consult Discharge Plan - Plan Referrals: Hawk Sarmiento MD [Primary Care Provider] - 08/16/17 1:15 pm (Please follow up as schedule... )
[2017-08-12] MEDS: traZODone 50 MG TABLET PO SCH (21:59)
[2017-08-13] MEDS: Levalbuterol Neb 1.25 MG/3 ML IH SCH ×4 (04:30→23:02)
[2017-08-13] MEDS: Ascorbic Acid 500 MG TABLET PO SCH (08:22)
[2017-08-13] MEDS: Cholecalciferol (D-3) 1,000 UNIT TABLET PO SCH (08:22)
[2017-08-13] MEDS: Gabapentin 100 MG CAPSULE PO SCH ×3 (08:22→22:51)
[2017-08-13] MEDS: Metoprolol XL (24 HR) Succ 25 MG TAB.ER.24H PO SCH (08:22)
[2017-08-13] MEDS: Multivit/Ca/Min/Fe/FA 1 TAB TABLET PO SCH (08:22)
[2017-08-13] MEDS: Furosemide 40 MG TABLET PO SCH ×2 (08:22→15:50)
[2017-08-13] MEDS: Aspirin Enteric Coated 81 MG Tablet PO SCH (08:23)
[2017-08-13] MEDS: *HR* Rivaroxaban 10 MG TABLET PO SCH (15:51)
--- NOTE | 2017-08-13 17:45 | Internal Med Progress Note ---
Date of Encounter: 08/13/17 Time of Encounter: 17:43 - Assessment and plan (1) (HFpEF) heart failure with preserved ejection fraction Current Visit: Yes Status: Acute Assessment and plan: Acute on chronic HFpEF. Last ECHO EF 50% with diastolic dysfunction. BNP 356. On Lasix 40 mg PO BID per cardio recommendation. Monitor BP, patient was borderline hypotensive. Monitor I/O, daily weights, fluid and salt restriction. ACEI not started because of low BP. s/p cardiac catherization 08/10/17 with mild nonobstructive CAD, non ischemic cardiomyopathy. Patient is in fair condition, plan for discharge once precert completed (2) COPD (chronic obstructive pulmonary disease) Current Visit: Yes Status: Chronic Assessment and plan: Hx of chronic COPD. Stable. Exposure to 2nd hand smoke from and son Chronically on 4L NC per pt. Qualifiers: COPD type: COPD with acute lower respiratory infection Qualified Code(s): J44.0 - Chronic obstructive pulmonary disease with acute lower respiratory infection (3) Hypothyroidism Current Visit: Yes Status: Chronic Assessment and plan: Hx of chronic hypothyroidism. TSH 2.27 c/w home dose synthroid Qualifiers: Hypothyroidism type: acquired Qualified Code(s): E03.9 - Hypothyroidism, unspecified (4) Atrial fibrillation Current Visit: Yes Status: Chronic Assessment and plan: Known Afib on BB. Rate controlled. Xarelto for AC. Qualifiers: Atrial fibrillation type: chronic Qualified Code(s): I48.2 - Chronic atrial fibrillation (5) GERD (gastroesophageal reflux disease) Current Visit: Yes Status: Chronic Assessment and plan: prilosec Qualifiers: Esophagitis presence: esophagitis presence not specified Qualified Code(s) : K21.9 - Gastro-esophageal reflux disease without esophagitis (6) HTN (hypertension) Current Visit: Yes Status: Chronic Assessment and plan: Metoprolol. Had not been started on ARB/ KELLEN inhibitor due to hypotension. Per cardiology, will consider addition of kellen/arb in outpatient setting. Qualifiers: Hypertension type: essential hypertension Qualified Code(s): I10 - Essential (primary) hypertension - Time Spent With Patient Total time spent is greater than 50% in coordination of care (as documented) at patient's floor/unit and/or counseling patient: - Subjective Interval history: Pt denies chest pain and SOB improving but on 4L NC at baseline so chronicall SOB. Denies fever, chills, N/V, constipation or diarrhea. - Constitutional Vitals: Temp Pulse Resp BP Pulse Ox 98.5 F 71 17 107/70 99 08/13/17 15:43 08/13/17 15:43 08/13/17 15:43 08/13/17 15:43 08/13/17 15:43 General appearance: Present: cooperative, mild distress (SOB), A&O X 3, pleasant , obese, answers questions appropriately - Head Head exam: Present: atraumatic, normocephalic - Eye Eye exam: Present: PERRL, conjuntiva pink, sclera anicteric Pupils: Present: PERRL - Neck Neck exam general surgery: Present: supple, trachea midline. Absent: lymphadenopathy - Respiratory Respiratory exam: Present: CTAB. Absent: accessory muscle use, rales, rhonchi, wheezes - Cardiovascular Cardiovascular exam: Present: irregular rhythm, +S1, +S2. Absent: diastolic murmur, gallop, rubs, systolic murmur - GI/Abdominal GI/Abdominal exam: Present: normal bowel sounds, soft, no peritoneal signs. Absent: distended, tenderness - Extremities Exam Extremities exam: Present: pedal edema, warm, radial pulses palpable and symmetrical. Absent: calf tenderness, cyanotic - Neurological Exam Neurological exam: Present: CN II-XII intact, oriented X3, no focal deficits. Absent: pronater drift, facial droop, speech deficit - Skin Skin exam: Present: dry, intact Internal Medicine: Result - Labs CBC & Chem 7: 08/12/17 06:38 08/12/17 06:38 - ABG Interpretation ABG results: PT/INR, D-dimer PT 15.6 Seconds (9.4-12.1) H D 08/10/17 09:13 - VTE Documentation of Mechanical Device: Intermittent pneumatic compression device Consult Discharge Plan - Plan Referrals: Hawk Sarmiento MD [Primary Care Provider] - 08/16/17 1:15 pm (Please follow up as schedule... Patient will go to [facility] )
[2017-08-13] MEDS: *HR* OxyCODONE/APAP 10/325 TABLET PO PRN (18:08)
[2017-08-13] MEDS: traZODone 50 MG TABLET PO SCH (22:51)
[2017-08-14] MEDS: Levalbuterol Neb 1.25 MG/3 ML IH SCH (04:48)
[2017-08-14] MEDS ORDERED: Levalbuterol Neb 1.25 MG/3 ML IH PRN (09:24)
[2017-08-14] MEDS: Metoprolol XL (24 HR) Succ 25 MG TAB.ER.24H PO SCH (09:50)
[2017-08-14] MEDS: Cholecalciferol (D-3) 1,000 UNIT TABLET PO SCH (09:50)
[2017-08-14] MEDS: Aspirin Enteric Coated 81 MG Tablet PO SCH (09:50)
[2017-08-14] MEDS: Furosemide 40 MG TABLET PO SCH ×2 (09:50→15:53)
[2017-08-14] MEDS: Ascorbic Acid 500 MG TABLET PO SCH (09:50)
[2017-08-14] MEDS: Gabapentin 100 MG CAPSULE PO SCH ×2 (09:50→15:53)
[2017-08-14] MEDS: Multivit/Ca/Min/Fe/FA 1 TAB TABLET PO SCH (09:50)
[2017-08-14] MEDS: *HR* OxyCODONE/APAP 10/325 TABLET PO PRN (09:54)
[2017-08-14 10:47] VITALS: BP 112/66
--- NOTE | 2017-08-14 15:12 | Discharge Summary ---
- NOTES TO OUTPATIENT PROVIDER Notes to Outpatient Provider: Acute CHF, now on increased Lasix at 40mg BID Date of Encounter: 08/14/17 Time of Encounter: 09:00 - Discharge Diagnosis (1) (HFpEF) heart failure with preserved ejection fraction Priority: Primary Status: Acute (2) COPD (chronic obstructive pulmonary disease) Priority: Secondary Status: Chronic Qualifiers: COPD type: unspecified COPD Qualified Code(s): J44.9 - Chronic obstructive pulmonary disease, unspecified (3) Hypothyroidism Priority: Secondary Status: Chronic Qualifiers: Hypothyroidism type: unspecified Qualified Code(s): E03.9 - Hypothyroidism , unspecified (4) Atrial fibrillation Priority: Secondary Status: Chronic Qualifiers: Atrial fibrillation type: chronic Qualified Code(s): I48.2 - Chronic atrial fibrillation (5) GERD (gastroesophageal reflux disease) Priority: Secondary Status: Chronic Qualifiers: Esophagitis presence: esophagitis presence not specified Qualified Code(s) : K21.9 - Gastro-esophageal reflux disease without esophagitis (6) HTN (hypertension) Priority: Secondary Status: Chronic Qualifiers: Hypertension type: essential hypertension Qualified Code(s): I10 - Essential (primary) hypertension Hospital course: Ms. Rutherford is a 71 year old female with the above medical problems, admitted with exertional dyspnea. She was treated for an acute exacerbation of CHF with IV diuresis. Echo showed reduced EF 35-40%, moderate global and segmental systolic dysfunction, moderate pulmonary HTN, severely dilated left atrium. She underwent LHC which showed mild 3 vessel CAD, recommended medical management. Patient clinically improved with this management, home dose of Lasix is being increased now. PT/OT evaluation recommend ECF placement, patient is currently medically stable for discharge. Discharge discussed with: patient, nurse - Time Spent with Patient Total time spent providing and/or coordinating discharge services: Greater than 30 minutes (45 min) - Discharge Medications Prescriptions: OxyCODONE/APAP 10/325 [Percocet 10/325 MG] 1 each PO Q6HR PRN 5 Days #15 tablet PRN Reason: Severe Pain Gabapentin [Neurontin] 100 mg PO TID #15 capsule Home Medications: Aspirin Enteric Coated [Aspirin EC] 81 mg PO QAM 12/14/14 [History] Duloxetine HCl [Cymbalta] 60 mg PO QAM 12/14/14 [History] Levothyroxine [Synthroid] 88 mcg PO QAM 03/24/15 [History] Polyethylene Glycol 3350 [MiraLAX] 17 gm PO DAILY PRN 08/31/15 [History] Metoprolol XL (24 HR) Succ [Toprol Xl] 25 mg PO DAILY 03/14/17 [History] Ascorbic Acid [Vitamin C] 500 mg PO DAILY 08/07/17 [History] Cholecalciferol (Vitamin D3) [Vitamin D3] 10,000 unit PO MO 08/07/17 [History] Docusate [Colace] 100 mg PO BID 08/07/17 [History] Ferrous Sulfate 325 mg PO DAILY 08/07/17 [History] Mv-Mn/FA/Vit K/Lycop/Lut/Coq10 [Daily Multivitamin Capsule] 1 cap PO DAILY 08/07 [History] Nitroglycerin [Nitrostat] 0.4 mg SL Q5MIN PRN 08/07/17 [History] Omeprazole [PriLOSEC] 40 mg PO QAM 08/07/17 [History] Rivaroxaban [Xarelto] 20 mg PO 1700 08/07/17 [History] Sertraline [Zoloft] 50 mg PO DAILY 08/07/17 [History] Simvastatin [Zocor] 40 mg PO DAILY 08/07/17 [History] traZODone [TraZODone] 50 mg PO HS 08/07/17 [History] Furosemide [Lasix] 40 mg PO BIDDIURETIC tablet 08/14/17 [Rx] Gabapentin [Neurontin] 100 mg PO TID #15 capsule 08/14/17 [Rx] OxyCODONE/APAP 10/325 [Percocet 10/325 MG] 1 each PO Q6HR PRN 5 Days #15 tablet 08/14/17 [Rx] Allergies/Adverse Reactions: 3 Allergy/AdvReac Type Severity Reaction Status Date / Time Penicillins [PCN] Allergy Blister Verified 08/07/17 14:46 Date of admission: 08/08/17 10:54 Primary care physician: Hawk Sarmiento MD Discharging clinician: Alba Clarke Anticipated date of discharge: 08/14/17 - Constitutional Vitals: Temp Pulse Resp BP Pulse Ox 98.4 F 71 17 112/66 97 08/14/17 10:45 08/14/17 10:45 08/14/17 10:45 08/14/17 10:45 08/14/17 10:45 General appearance: Present: cooperative, A&O X 3, answers questions appropriately - Cardiovascular Cardiovascular exam: Present: RRR, +S1, +S2. Absent: diastolic murmur, gallop, rubs, systolic murmur - Patient Status Disposition: Transfer SNF Condition: Fair Functional capacity at discharge: uses cane/walker Overall status at discharge: patient is progressing back to baseline - Discharge Instructions Follow Up With: Hawk Sarmiento MD [Primary Care Provider] - 08/16/17 1:15 pm (Please follow up as schedule... Patient will go to [facility] appt. is cancel ) Additional Instructions: F/up with Cardiology as scheduled - Diet and Activity Activity: as per physical therapy, wear oxygen at all times Diet: low fat, low cholesterol, low salt diet, other (fluid restriction to 1.5L/ day) - VTE Documentation of Mechanical Device: Venous foot pump, device
--- NOTE | 2017-08-14 15:24 | Physician Discharge Referral ---
ExtendedCare Referral Info Transfer To: [facility] Provider in Charge: Alba Clarke Provider in Charge after Transfer: PCP Institutional Level of Care: Skilled - Diagnosis (1) (HFpEF) heart failure with preserved ejection fraction Priority: Primary Status: Acute (2) COPD (chronic obstructive pulmonary disease) Priority: Secondary Status: Chronic (3) Hypothyroidism Priority: Secondary Status: Chronic (4) Atrial fibrillation Priority: Secondary Status: Chronic (5) GERD (gastroesophageal reflux disease) Priority: Secondary Status: Chronic (6) HTN (hypertension) Priority: Secondary Status: Chronic Expected Duration of Placement: 3 weeks Prognosis: Fair Aware of Diagnosis: Patient Aware of Prognosis: Patient - Transfer Medications Prescriptions: OxyCODONE/APAP 10/325 [Percocet 10/325 MG] 1 each PO Q6HR PRN 5 Days #15 tablet PRN Reason: Severe Pain Gabapentin [Neurontin] 100 mg PO TID #15 capsule Home Medications: Aspirin Enteric Coated [Aspirin EC] 81 mg PO QAM 12/14/14 [History] Duloxetine HCl [Cymbalta] 60 mg PO QAM 12/14/14 [History] Levothyroxine [Synthroid] 88 mcg PO QAM 03/24/15 [History] Polyethylene Glycol 3350 [MiraLAX] 17 gm PO DAILY PRN 08/31/15 [History] Metoprolol XL (24 HR) Succ [Toprol Xl] 25 mg PO DAILY 03/14/17 [History] Ascorbic Acid [Vitamin C] 500 mg PO DAILY 08/07/17 [History] Cholecalciferol (Vitamin D3) [Vitamin D3] 10,000 unit PO MO 08/07/17 [History] Docusate [Colace] 100 mg PO BID 08/07/17 [History] Ferrous Sulfate 325 mg PO DAILY 08/07/17 [History] Mv-Mn/FA/Vit K/Lycop/Lut/Coq10 [Daily Multivitamin Capsule] 1 cap PO DAILY 08/07 [History] Nitroglycerin [Nitrostat] 0.4 mg SL Q5MIN PRN 08/07/17 [History] Omeprazole [PriLOSEC] 40 mg PO QAM 08/07/17 [History] Rivaroxaban [Xarelto] 20 mg PO 1700 08/07/17 [History] Sertraline [Zoloft] 50 mg PO DAILY 08/07/17 [History] Simvastatin [Zocor] 40 mg PO DAILY 08/07/17 [History] traZODone [TraZODone] 50 mg PO HS 08/07/17 [History] Furosemide [Lasix] 40 mg PO BIDDIURETIC tablet 08/14/17 [Rx] Gabapentin [Neurontin] 100 mg PO TID #15 capsule 08/14/17 [Rx] OxyCODONE/APAP 10/325 [Percocet 10/325 MG] 1 each PO Q6HR PRN 5 Days #15 tablet 08/14/17 [Rx] Allergies/Adverse Reactions: 3 Allergy/AdvReac Type Severity Reaction Status Date / Time Penicillins [PCN] Allergy Blister Verified 08/07/17 14:46 - Respiratory Orders Oxygen / L per min (2-3L/min via NC) Smoking Cessation: Smoking cessation has been advised. For more information, call the [employer] Quit Line at 1-281-[employer]-NOW. - Advance Directives Code Status: Full Code - Mobility Orders Ambulate - Rehabiliation Orders Rehab Potential: Fair Rehab Orders: ROM Exercises, Evaluation for Physical Therapy, Evaluation for Occupational Therapy - Diet Orders Cardiac (fluid restriction to 1.5L/day) CERTIFICATION: I certify that the transfer of the above named patient to an Extended Care Facility is necessary for the continuing treatment of the diagnosis listed. The above information is true and accurate reflection of patient's current condition. Confidential - Redisclosure prohibited without a patient's written consent.
[2017-08-14] MEDS: *HR* Rivaroxaban 10 MG TABLET PO SCH (15:53)
== END 2017-08-14 16:34 | DRG 286 ==
LOC: EMEROO 11:18 → 2ANU 11:18 → SUATTDRO 08-08 10:54
PROVIDERS: ADMIT Student in an Organized Health Care Education/Training Program; ATTEND Internal Medicine

== ENCOUNTER 2017-11-04 12:43 | Observation (INO) ==
--- NOTE | 2017-11-04 13:03 | Emergency Department Note ---
Disposition Clinical Impression: Hemarthrosis, Left knee pain Disposition: Admitted As Inpatient Condition: Good Time of Disposition: 21:51 Extremity Problem HPI - General Chief complaint: ED Extremity Problem,Nontraumatic Stated complaint: left knee pain Time Seen by Provider: 11/04/17 12:44 Source: patient Limitations: no limitations Nursing Notes Reviewed: Yes Vital Signs Reviewed: Yes - History of Present Illness HPI Narrative: 72-year-old female presents from home via EMS for evaluation of left knee pain. Atraumatic. This has been progressive for the past several days. Worse overnight; this kept her awake. She has known [id number] knee articulation and has been evaluated by orthopedics who recommended total knee arthroplasty. This procedure has been delayed due to congestive heart failure. Her concern is her pain. Patient ambulates at home with walker. No history of gout, septic arthritis, DVT. ROS: Pos: as above Neg: fever, chills, nausea, vomiting, chest pain, palpitations, trauma Pain Scale: 10 - Related Data Home Medications Medication Instructions Recorded Confirmed Aspirin Enteric Coated [Aspirin EC] 81 mg PO QAM 12/14/14 03/14/17 Duloxetine HCl [Cymbalta] 60 mg PO QAM 12/14/14 03/14/17 Levothyroxine [Synthroid] 88 mcg PO QAM 03/24/15 08/07/17 Polyethylene Glycol 3350 [MiraLAX] 17 gm PO DAILY PRN 08/31/15 03/14/17 Metoprolol XL (24 HR) Succ [Toprol 25 mg PO DAILY 03/14/17 03/14/17 Xl] Ascorbic Acid [Vitamin C] 500 mg PO DAILY 08/07/17 08/07/17 Cholecalciferol (Vitamin D3) 10,000 unit PO MO 08/07/17 08/07/17 [Vitamin D3] Docusate [Colace] 100 mg PO BID 08/07/17 08/07/17 Ferrous Sulfate 325 mg PO DAILY 08/07/17 08/07/17 Mv-Mn/FA/Vit K/Lycop/Lut/Coq10 1 cap PO DAILY 08/07/17 08/07/17 [Daily Multivitamin Capsule] Nitroglycerin [Nitrostat] 0.4 mg SL Q5MIN PRN 08/07/17 08/07/17 Omeprazole [PriLOSEC] 40 mg PO QAM 08/07/17 08/07/17 Rivaroxaban [Xarelto] 20 mg PO 1700 08/07/17 08/07/17 Sertraline [Zoloft] 50 mg PO DAILY 08/07/17 08/07/17 Simvastatin [Zocor] 40 mg PO DAILY 08/07/17 08/07/17 traZODone [TraZODone] 50 mg PO HS 08/07/17 08/07/17 Previous Rx's Medication Instructions Recorded Furosemide [Lasix] 40 mg PO BIDDIURETIC tablet 08/14/17 Gabapentin [Neurontin] 100 mg PO TID #15 capsule 08/14/17 OxyCODONE/APAP 10/325 [Percocet 1 each PO Q6HR PRN 5 Days #15 08/14/17 10/325 MG] tablet Allergies Allergy/AdvReac Type Severity Reaction Status Date / Time Penicillins [PCN] Allergy Blister Verified 08/07/17 14:46 All systems ED: reviewed and negative except as stated. Review of Systems: As Per HPI Past Medical History - Past Medical History Medical history: Reports: arthritis, atrial fibrillation, CHF, COPD, GERD, hyperlipidemia, hypertension, thyroid disease, other Surgical history: Reports: orthopedic, other, pacemaker/AICD Psychiatric history: Reports: anxiety, depression - Social History Smoking Status: 2nd Hand Smoke Exposure Smokeless Tobacco Status: No Alcohol use: Reports: none Drug use: Reports: none Physical Exam Vital Signs Reviewed General: Patient is alert, oriented, and in no acute distress. Head: atraumatic, normocephalic Eye: normal appearance, no scleral icterus, no conjunctival injection ENT: mucous membranes moist, normal external ear exam Neck: normal inspection, trachea midline, full ROM Chest: normal inspection, symmetric chest rise Respiratory: Good respiratory effort. Bilateral breath sounds are clear without wheezing, crackles, or rhonchi. Cardiovascular: Regular rate and rhythm. No clicks, rubs, gallops, or murmors. Normal heart sounds. Bilateral posterior tibial pulses 2/4 equal. Abdomen: Bowel sounds present normoactive x-4 quadrants. Abdomen is soft, nondistended, and nontender. No guarding or rebound. No organomegaly noted. Musculoskeletal: Spontaneously moving all extremities. Tenderness to palpation of the left knee most notable in the medial joint line. Skin: warm, dry, intact. No overlying erythema or warmth of the left knee. Neuro: Alert and oriented x4. Sensation light touch intact. Psych: Patient's affect is appropriate for situation. - General Limitations: no limitations General appearance: alert, in no apparent distress Course Course Narrative: Bedside ultrasound of the suprapatellar bursa is unremarkable. X-ray the patient's left knee showed bony demineralization however was limited because of this. Attempted AP with the patient. She only made of several steps with assistance before she was unable to proceed further secondary to pain. She will call full assistance to get back to her bed. CT of the patient's left knee showed hemarthrosis. Given the patient is unable to ambulate with assistance, will admit for into the pain management with consultation or though for possible draining. I discussed the patient with the admitting hospitalist, Dr. Bianchi, who agrees to accept the patient with orthodontic consult. I discussed the above with orthopaedics. Consult placed. Vital Signs Temperature 98.5 F 11/04/17 12:49 Pulse Rate 83 11/04/17 12:49 Respiratory Rate 18 11/04/17 12:49 Blood Pressure 108/60 11/04/17 12:49 O2 Sat by Pulse Oximetry 99 11/04/17 12:49 Temperature 98.3 F 11/04/17 19:14 Pulse Rate 88 11/04/17 19:14 Respiratory Rate 16 11/04/17 19:14 Blood Pressure 103/56 11/04/17 19:14 O2 Sat by Pulse Oximetry 95 11/04/17 19:14 Oxygen Delivery Oxygen Delivery Room Air Extremity Problem, Nontraumati - Lab Data Result diagrams: 11/04/17 17:30 Lab Results 11/04/17 11/04/17 Range/Units 17:30 17:30 WBC 7.9 (4.3-11.1) K/mcL RBC 4.44 (3.82-4.97) M/mcL Hgb 12.2 (11.5-15.4) g/dL Hct 38.7 (35.3-44.9) % MCV 87.2 (83.0-100.0) fL MCH 27.5 L (28.0-33.3) pg MCHC 31.5 L (31.6-35.5) g/dL RDW 14.4 (11.5-14.5) % Plt Count 155 (140-400) K/mcL MPV 10.6 (9.4-12.4) fL Immature Gran % 0.3 (0-4) % Seg Neutrophils % 50.7 % Lymphocytes % 36.2 % Monocytes % 10.3 % Eosinophils % 1.9 % Basophils % 0.6 % Neutrophils # 4.0 (1.6-8.9) K/mcL Lymphocytes # 2.9 (0.6-4.6) K/mcL Monocytes # 0.8 (0.0-1.3) K/mcL Eosinophils # 0.2 (0.0-0.6) K/mcL Basophils # 0.1 (0.0-0.2) K/mcL PT 15.0 H (9.4-12.1) Seconds INR 1.3 Attestation Statement - Attestation Attestation: I, Joel Thao DO, examined this patient [id number] and my medical decision-making was reviewed with Dr. Sagar Bob, Resident Physician. I agree with the documented findings, disposition and treatment plan as described except to the extent set forth below. Please see my progress notes for details.
--- NOTE | 2017-11-04 13:09 | Emergency Department Note ---
Disposition Clinical Impression: Hemarthrosis, Left knee pain Disposition: Admitted As Inpatient Condition: Good Time of Disposition: 17:42 General Adult HPI - General Chief complaint: ED Extremity Problem,Nontraumatic Stated complaint: left knee pain Time Seen by Provider: 11/04/17 12:44 Source: patient Limitations: no limitations - History of Present Illness Pain Scale: 10 - Related Data Home Medications Medication Instructions Recorded Confirmed Aspirin Enteric Coated [Aspirin EC] 81 mg PO QAM 12/14/14 03/14/17 Duloxetine HCl [Cymbalta] 60 mg PO QAM 12/14/14 03/14/17 Levothyroxine [Synthroid] 88 mcg PO QAM 03/24/15 08/07/17 Polyethylene Glycol 3350 [MiraLAX] 17 gm PO DAILY PRN 08/31/15 03/14/17 Metoprolol XL (24 HR) Succ [Toprol 25 mg PO DAILY 03/14/17 03/14/17 Xl] Ascorbic Acid [Vitamin C] 500 mg PO DAILY 08/07/17 08/07/17 Cholecalciferol (Vitamin D3) 10,000 unit PO MO 08/07/17 08/07/17 [Vitamin D3] Docusate [Colace] 100 mg PO BID 08/07/17 08/07/17 Ferrous Sulfate 325 mg PO DAILY 08/07/17 08/07/17 Mv-Mn/FA/Vit K/Lycop/Lut/Coq10 1 cap PO DAILY 08/07/17 08/07/17 [Daily Multivitamin Capsule] Nitroglycerin [Nitrostat] 0.4 mg SL Q5MIN PRN 08/07/17 08/07/17 Omeprazole [PriLOSEC] 40 mg PO QAM 08/07/17 08/07/17 Rivaroxaban [Xarelto] 20 mg PO 1700 08/07/17 08/07/17 Sertraline [Zoloft] 50 mg PO DAILY 08/07/17 08/07/17 Simvastatin [Zocor] 40 mg PO DAILY 08/07/17 08/07/17 traZODone [TraZODone] 50 mg PO HS 08/07/17 08/07/17 Previous Rx's Medication Instructions Recorded Furosemide [Lasix] 40 mg PO BIDDIURETIC tablet 08/14/17 Gabapentin [Neurontin] 100 mg PO TID #15 capsule 08/14/17 OxyCODONE/APAP 10/325 [Percocet 1 each PO Q6HR PRN 5 Days #15 08/14/17 10/325 MG] tablet Allergies Allergy/AdvReac Type Severity Reaction Status Date / Time Penicillins [PCN] Allergy Blister Verified 08/07/17 14:46 Past Medical History - Past Medical History Medical history: Reports: arthritis, atrial fibrillation, CHF, COPD, GERD, hyperlipidemia, hypertension, thyroid disease, other Surgical history: Reports: orthopedic, other, pacemaker/AICD Psychiatric history: Reports: anxiety, depression - Social History Smoking Status: 2nd Hand Smoke Exposure Smokeless Tobacco Status: No Alcohol use: Reports: none Drug use: Reports: none Physical Exam - General Limitations: no limitations General appearance: alert, in no apparent distress Course Vital Signs Temperature 98.5 F 11/04/17 12:49 Pulse Rate 83 11/04/17 12:49 Respiratory Rate 18 11/04/17 12:49 Blood Pressure 108/60 11/04/17 12:49 O2 Sat by Pulse Oximetry 99 11/04/17 12:49 Temperature 98.5 F 11/04/17 12:49 Pulse Rate 72 11/04/17 15:06 Respiratory Rate 20 11/04/17 15:06 Blood Pressure 115/67 11/04/17 15:06 O2 Sat by Pulse Oximetry 95 11/04/17 15:06 Oxygen Delivery Oxygen Delivery Room Air Attestation Statement - Attestation Attestation: I, Joel Thao DO, examined this patient [id number] and my medical decision-making was reviewed with Dr. Sagar Bob, Resident Physician. I agree with the documented findings, disposition and treatment plan as described except to the extent set forth below. Please see my progress notes for details. 72-year-old female presents to the emergency room for evaluation of left knee pain. Patient has not had any direct injury to that knee. She has chronic bone -on-bone presentation to the knee that has been evaluated by orthopedics in the past. They recommended a knee replacement. She has been seen and evaluated by Dr. Jefferson. Vital signs at presentation are stable. No other complaints or issues. Currently she is denying chest pain shortness of breath headache vision changes nausea vomiting or diarrhea. No fevers no chills. Patient does not have a history of gout or septic joint. She does not have a history of DVTs. Patient is only complaining of pain in her left knee that is worse with standing at this time. She chronically has pain in her left main is a walker at home. On physical exam here the patient is resting comfortably in the bed his lungs are not touching the knee or moving her knee. She is alert she is oriented she speaks in full sentences. She is in no apparent distress. Ultrasound was utilized to evaluate the knee initially and there is no visible signs of suprapatellar free fluid or extension to the joint at this time. There is no redness warmth or irritation noted. Pulses in the bilateral DP and PT distribution appear to be stable with symmetric presentation this time. No visible signs of cellulitis or concern for septic joint at this point. This could be just progression of her chronic degenerative joint disease. We will repeat imaging of the left lower extremity. She does not have any vascular insufficiency or signs of swelling to lower extremity. Disposition pending workup and treatment course. Patient does have a son and daughter live with her home but she feels like it is difficult for them to take care of her. Social work will be informed of the patient being here in the emergency room and will discuss disposition. See detailed documentation of the physical exam, medical intervention, medical decision-making and disposition in the resident physician's note. 1400 Patient is otherwise currently stable. X-ray confirms no acute fractures patient does have significant tricompartmental arthritis. She will be ambulate this if she has significant pain and may require CT scan. She does have significant demineralization of the joint which could be suspicious or concerning for possible occult fracture. 1525 Patient had pain with ambulation and would not get up out of bed. CT imaging of the left knee is ordered. Lengthy discussion was had with the patient the family at the bedside about disposition of the imaging modalities negative and they are comfortable with the projected plan. Patient is otherwise stable. Hospitals contacted no other concerns or issues no this time. Patient will be admitted for continuation of care and symptomatically control. Hemarthrosis of the right knee was noted on CT scan. Patient is still unable to ambulate. Diagnosis is atraumatic hemarthrosis. Patient is not currently on a blood thinners that she describes. Hospitalist accepted the patient for continuation of care.
[2017-11-04] MEDS ORDERED: *HR* OxyCODONE/APAP 5/325 TABLET PO ONE (14:37)
[2017-11-04 17:40] LABS: Basophils # 0.1 K/mcL (0.0-0.2); Basophils % 0.6 %; Eosinophils # 0.2 K/mcL (0.0-0.6); Eosinophils % 1.9 %; Hematocrit 38.7 % (35.3-44.9); Hemoglobin 12.2 g/dL (11.5-15.4); Immature Granulocytes % 0.3 % (0-4); Lymphocytes # 2.9 K/mcL (0.6-4.6); Lymphocytes % 36.2 %; Mean Corpuscular HGB Conc 31.5 g/dL (31.6-35.5); Mean Corpuscular Hemoglobin 27.5 pg (28.0-33.3); Mean Corpuscular Volume 87.2 fL (83.0-100.0); Mean Platelet Volume 10.6 fL (9.4-12.4); Monocytes # 0.8 K/mcL (0.0-1.3); Monocytes % 10.3 %; Platelet Count 155 K/mcL (140-400); Red Blood Count 4.44 M/mcL (3.82-4.97); Red Cell Distribution Width 14.4 % (11.5-14.5); Segmented Neutrophils % 50.7 %
[2017-11-04 17:45] LABS: INR 1.3
[2017-11-04] MEDS ORDERED: Naloxone 0.4 MG/ML INJ IVP PRN (18:04)
--- NOTE | 2017-11-04 18:09 | Internal Med History&Physical ---
Date of Encounter: 11/04/17 Time of Encounter: 18:04 Internal Medicine - H&P: HPI Chief complaint: Knee pain Admitted From: Home Plans for Post Hospital Care: Home History of present illness: Ms. Rutherford is a 72 year old female with a past history of severe osteoarthritis who presents with left knee pain. The patient states that she has been progressively having worsening of her left knee pain. It is now affecting her ambulation. Patient has no erythema or warmth to the knee however imaging revealed possible hemarthrosis. The patient is unable to ambulate safely return home and therefore will be admitted for observation with sore throat consult for possible arthrocentesis. Patient was told she needed a knee replacement but could not be performed secondary to her heart failure. Patient denies any chest pain, palpations, shortness breath, nausea, vomiting, diarrhea , fevers. Past Med Surg Social Fam HX - Past Medical History Medical history: arthritis, atrial fibrillation, CHF, COPD, GERD, hyperlipidemia , hypertension, thyroid disease, other Additional medical history: anemia Psychiatric history: anxiety, depression - Past Surgical History Surgical History: orthopedic, other, pacemaker/AICD Additional surgical history: R shoulder complete replacement, knee replacement- right - Social History Smoking Status: 2nd Hand Smoke Exposure Smokeless Tobacco Status: No Alcohol use: none Drug use: none - Family History Mother Family Member Ethnicity: Non- Living Status: Brother Family Member Ethnicity: Non- Living Status: Still Living Sister Family Member Ethnicity: Non- Living Status: Still Living Father Family Member Ethnicity: Non- Living Status: Hx Family Cardiac Disorders: Yes (massive [place]) - Additional Family History Additional family history: Family history reviewed and not pertinent Internal Medicine - H&P: Meds Aspirin Enteric Coated [Aspirin EC] 81 mg PO QAM 12/14/14 [History] Duloxetine HCl [Cymbalta] 60 mg PO QAM 12/14/14 [History] Levothyroxine [Synthroid] 88 mcg PO QAM 03/24/15 [History] Polyethylene Glycol 3350 [MiraLAX] 17 gm PO DAILY PRN 08/31/15 [History] Metoprolol XL (24 HR) Succ [Toprol Xl] 25 mg PO DAILY 03/14/17 [History] Ascorbic Acid [Vitamin C] 500 mg PO DAILY 08/07/17 [History] Cholecalciferol (Vitamin D3) [Vitamin D3] 10,000 unit PO MO 08/07/17 [History] Docusate [Colace] 100 mg PO BID 08/07/17 [History] Ferrous Sulfate 325 mg PO DAILY 08/07/17 [History] Mv-Mn/FA/Vit K/Lycop/Lut/Coq10 [Daily Multivitamin Capsule] 1 cap PO DAILY 08/07 [History] Nitroglycerin [Nitrostat] 0.4 mg SL Q5MIN PRN 08/07/17 [History] Omeprazole [PriLOSEC] 40 mg PO QAM 08/07/17 [History] Rivaroxaban [Xarelto] 20 mg PO 1700 08/07/17 [History] Sertraline [Zoloft] 50 mg PO DAILY 08/07/17 [History] Simvastatin [Zocor] 40 mg PO DAILY 08/07/17 [History] traZODone [TraZODone] 50 mg PO HS 08/07/17 [History] Furosemide [Lasix] 40 mg PO BIDDIURETIC tablet 08/14/17 [Rx] Gabapentin [Neurontin] 100 mg PO TID #15 capsule 08/14/17 [Rx] OxyCODONE/APAP 10/325 [Percocet 10/325 MG] 1 each PO Q6HR PRN 5 Days #15 tablet 08/14/17 [Rx] 3 Allergy/AdvReac Type Severity Reaction Status Date / Time Penicillins [PCN] Allergy Blister Verified 08/07/17 14:46 All Systems PM: A 10-system review of systems was performed and is negative for pertinent findings except as documented above in the HPI. Review of systems: 10 point review of systems is otherwise negative other than described in history of present illness - Constitutional Vitals: Temp Pulse Resp BP Pulse Ox 98.5 F 72 20 115/67 95 11/04/17 12:49 11/04/17 15:06 11/04/17 15:06 11/04/17 15:06 11/04/17 15:06 Exam: Constitutional: No acute distress, Alert Psych: AAO x 3 HEENT: NCAT, EOMI Neck: supple, no JVD Cardio: Irregularly irregular with controlled rate +s1s2, no murmurs/rubs/ gallops, no JVD Resp: clear to ascultation bilaterally, no wheezes/rales/ronchi Abd: soft, non tender/non distended, positive bowel sounds, no gaurding/reboud/ ridgitity Extremities: No obvious deformity in either knee there is no warmth to the left knee however this tender with range of motion; neurovascularly intact in bilateral lower extremities Neuro: no focal deficits appreciated Lymph: no cervical/supraclavicular adenopahty apprecitated Internal Med - H&P Results - Labs CBC & Chem 7: 11/04/17 17:30 - Assessment and plan (1) Knee pain Current Visit: Yes Status: Acute Assessment and plan: Acute left knee pain with CT imaging consistent with hemarthrosis -Analgesia -We will also consult for possible arthrocentesis -Physical therapy evaluation Qualifiers: Chronicity: acute Laterality: left Qualified Code(s): M25.562 - Pain in left knee (2) CHF (congestive heart failure) Current Visit: Yes Status: Acute Assessment and plan: Chronic compensated congestive heart failure with preserved ejection fraction -Continue home medications Qualifiers: Heart failure type: diastolic Heart failure chronicity: chronic Qualified Code(s): I50.32 - Chronic diastolic (congestive) heart failure (3) Afib Current Visit: Yes Status: Acute Assessment and plan: Chronic atrial fibrillation -Continue beta marianna -Hold Xarelto and light of hemarthrosis resume when able Qualifiers: Atrial fibrillation type: chronic Qualified Code(s): I48.2 - Chronic atrial fibrillation (4) DVT prophylaxis Current Visit: Yes Status: Acute Assessment and plan: -Subcutaneous heparin; Xarelto held in light of hemarthrosis - Time Spent With Patient Total time spent is greater than 50% in coordination of care (as documented) at patient's floor/unit and/or counseling patient: 25 - 35 minutes
[2017-11-04] MEDS: *HR* Heparin 5,000 UNIT/ML VIAL SQ SCH (21:42)
[2017-11-04] MEDS: *HR* OxyCODONE/APAP 10/325 TABLET PO PRN (21:42)
[2017-11-04] MEDS: Gabapentin 100 MG CAPSULE PO SCH (21:42)
[2017-11-05 01:00] LABS: Basophils # 0.1 K/mcL (0.0-0.2); Eosinophils # 0.2 K/mcL (0.0-0.6); Eosinophils % 2.5 %; Hematocrit 37.5 % (35.3-44.9); Hemoglobin 11.9 g/dL (11.5-15.4); Immature Granulocytes % 0.1 % (0-4); Lymphocytes # 2.6 K/mcL (0.6-4.6); Lymphocytes % 39.2 %; Mean Corpuscular HGB Conc 31.7 g/dL (31.6-35.5); Mean Corpuscular Hemoglobin 27.4 pg (28.0-33.3); Mean Corpuscular Volume 86.4 fL (83.0-100.0); Mean Platelet Volume 10.5 fL (9.4-12.4); Monocytes # 0.7 K/mcL (0.0-1.3); Monocytes % 10.4 %; Neutrophils # 3.1 K/mcL (1.6-8.9); Platelet Count 155 K/mcL (140-400); Red Blood Count 4.34 M/mcL (3.82-4.97); Red Cell Distribution Width 14.5 % (11.5-14.5); Segmented Neutrophils % 46.8 %
[2017-11-05 01:22] LABS: BUN/Creatinine Ratio 21 (6-26); Blood Urea Nitrogen 13 mg/dL (8-23); Calcium 9.1 mg/dL (8.6-10.3); Carbon Dioxide 37 mEq/L (23-29); Chloride 98 mEq/L (98-107); Glucose 115 mg/dL (70-105); Osmolality,Calculated 293 (280-300); Potassium 3.4 mEq/L (3.5-5.1); Sodium 141 mEq/L (136-145); eGFR For Non-African Americans > 60 (> 60)
[2017-11-05] MEDS: *HR* OxyCODONE/APAP 10/325 TABLET PO PRN ×3 (04:43→21:45)
[2017-11-05] MEDS: *HR* Heparin 5,000 UNIT/ML VIAL SQ SCH ×3 (04:43→21:45)
--- NOTE | 2017-11-05 06:45 | Orthopedic Consult Note ---
Date of Encounter: 11/05/17 Time of Encounter: 06:44 History of Present Illness HPI: Ms. Rutherford is a 72 year old female History of right total knee replacement did well, patient with severe left knee arthritis, reports significant cardiac history. Physical exam Knee left No Swelling or erythema Limited flexion-extension Positive crepitation No instability Neurovascular intact X-rays show severe arthritic changes [id number] arthritis all 3 compartments. Patient requires knee replacement to solve the problem, may be a candidate for injections, patient would like to have cardiac evaluation. Past Med Surg Social Fam HX - Past Medical History Medical history: arthritis, atrial fibrillation, CHF, COPD, GERD, hyperlipidemia , hypertension, thyroid disease, other Additional medical history: anemia Psychiatric history: anxiety, depression - Past Surgical History Surgical History: orthopedic, other, pacemaker/AICD Additional surgical history: R shoulder complete replacement, knee replacement- right - Social History Smoking Status: 2nd Hand Smoke Exposure Smokeless Tobacco Status: No Alcohol use: none Drug use: none - Family History Mother Family Member Ethnicity: Non- Living Status: Brother Family Member Ethnicity: Non- Living Status: Still Living Sister Family Member Ethnicity: Non- Living Status: Still Living Father Family Member Ethnicity: Non- Living Status: Hx Family Cardiac Disorders: Yes (massive [place]) Medications and Allergies Aspirin Enteric Coated [Aspirin EC] 81 mg PO QAM 12/14/14 [History] Duloxetine HCl [Cymbalta] 60 mg PO QAM 12/14/14 [History] Levothyroxine [Synthroid] 88 mcg PO QAM 03/24/15 [History] Polyethylene Glycol 3350 [MiraLAX] 17 gm PO DAILY PRN 08/31/15 [History] Metoprolol XL (24 HR) Succ [Toprol Xl] 25 mg PO DAILY 03/14/17 [History] Ascorbic Acid [Vitamin C] 500 mg PO DAILY 08/07/17 [History] Cholecalciferol (Vitamin D3) [Vitamin D3] 10,000 unit PO MO 08/07/17 [History] Docusate [Colace] 100 mg PO BID 08/07/17 [History] Ferrous Sulfate 325 mg PO DAILY 08/07/17 [History] Mv-Mn/FA/Vit K/Lycop/Lut/Coq10 [Daily Multivitamin Capsule] 1 cap PO DAILY 08/07 [History] Nitroglycerin [Nitrostat] 0.4 mg SL Q5MIN PRN 08/07/17 [History] Omeprazole [PriLOSEC] 40 mg PO QAM 08/07/17 [History] Rivaroxaban [Xarelto] 20 mg PO 1700 08/07/17 [History] Sertraline [Zoloft] 50 mg PO DAILY 08/07/17 [History] Simvastatin [Zocor] 40 mg PO DAILY 08/07/17 [History] traZODone [TraZODone] 50 mg PO HS 08/07/17 [History] Furosemide [Lasix] 40 mg PO BIDDIURETIC tablet 08/14/17 [Rx] Gabapentin [Neurontin] 100 mg PO TID #15 capsule 08/14/17 [Rx] OxyCODONE/APAP 10/325 [Percocet 10/325 MG] 1 each PO Q6HR PRN 5 Days #15 tablet 08/14/17 [Rx] 3 Allergy/AdvReac Type Severity Reaction Status Date / Time Penicillins [PCN] Allergy Blister Verified 08/07/17 14:46 All Systems Reviewed: The remainder of the systems were reviewed and are negative Physical Exam - Constitutional Vitals: Temp Pulse Resp BP Pulse Ox 97.4 F L 75 17 113/75 97 11/05/17 04:20 11/05/17 04:20 11/05/17 04:20 11/05/17 04:20 11/05/17 04:20 Results - Labs Result Diagrams: 11/05/17 00:37 11/05/17 00:37 Labs: Abnormal lab results MCH 27.4 pg (28.0-33.3) L 11/05/17 00:37 PT 15.0 Seconds (9.4-12.1) H 11/04/17 17:30 Potassium 3.4 mEq/L (3.5-5.1) L 11/05/17 00:37 Carbon Dioxide 37 mEq/L (23-29) H 11/05/17 00:37 Glucose 115 mg/dL (70-105) H 11/05/17 00:37 H & H 11/05/17 Range/Units 00:37 Hgb 11.9 (11.5-15.4) g/dL Hct 37.5 (35.3-44.9) % All other labs normal. Consult Discharge Plan - Plan Referrals: Hawk Sarmiento MD [Primary Care Provider] -
[2017-11-05] MEDS: Furosemide 40 MG TABLET PO SCH ×2 (08:52→16:34)
[2017-11-05] MEDS: Metoprolol XL (24 HR) Succ 25 MG TAB.ER.24H PO SCH (08:52)
[2017-11-05] MEDS: Aspirin Enteric Coated 81 MG Tablet PO SCH (08:53)
[2017-11-05] MEDS: Gabapentin 100 MG CAPSULE PO SCH ×3 (08:53→21:45)
--- NOTE | 2017-11-05 12:22 | Internal Med Progress Note ---
Hospitalist Progress Note - Encounter Date of Encounter: 11/05/17 Time of Encounter: 12:27 - Subjective Interval History: No acute events overnight. Still having knee pain. Denies chest pain, fevers, chills, erythema of knee. - Exam Vitals: Temp Pulse Resp BP Pulse Ox 97.7 F 76 18 104/69 98 11/05/17 11:16 11/05/17 11:16 11/05/17 11:16 11/05/17 11:16 11/05/17 11:16 Exam: Constitutional: NAD Psych: AAO x 3 HEENT: NCAT, EOMI Neck: supple, no JVD Cardio: Irregularly irregular with controlled rate +s1s2, no murmurs/rubs/ gallops, no JVD Resp: clear to ascultation bilaterally, no wheezes/rales/ronchi Extremities: No edema of extremiteis left knee however this tender with range of motion; neurovascularly intact in bilateral lower extremities Neuro: no focal deficits appreciated - Assessment and Plan (1) Knee pain Current Visit: Yes Status: Acute Assessment and Plan: Acute left knee pain with CT imaging consistent with hemarthrosis -Analgesia -Physical therapy evaluation Ortho evaluated patient Will consult Cardiology for Surgical clearance. [facility] 08/2017: EF 25-30%, mild 3 vessel disease, 2+ mitral regurg Echocardiogram 08/2017: LVEF 35-40%, moderate pulm HTN, no valvular dysfunction. Moderate global and segmental LV systolic dysfunction. (2) CHF (congestive heart failure) Current Visit: Yes Status: Acute Assessment and Plan: -Continue home medications. On metoprolol. I do not see an KELLEN inhibitor on medication list but BP is low, likely reason why. - [facility] 08/2017: EF 25-30%, mild 3 vessel disease, 2+ mitral regurg - Echocardiogram 08/2017: LVEF 35-40%, moderate pulm HTN, no valvular dysfunction. Moderate global and segmental LV systolic dysfunction. No acute issues but her functional status at baseline is poor. (3) Afib Current Visit: Yes Status: Acute Assessment and Plan: Chronic atrial fibrillation -Continue beta marianna -Hold Xarelto and light of hemarthrosis resume when able (4) DVT prophylaxis Current Visit: Yes Status: Acute Assessment and Plan: -Subcutaneous heparin; Xarelto held in light of hemarthrosis - Time Spent with Patient Total time spent is greater than 50% in coordination of care (as documented) at patient's floor/unit and/or counseling patient: Internal Medicine: Result - Labs CBC & Chem 7: 11/05/17 00:37 11/05/17 00:37 Labs: Short CBC 11/05/17 Range/Units 00:37 WBC 6.7 (4.3-11.1) K/mcL Hgb 11.9 (11.5-15.4) g/dL Hct 37.5 (35.3-44.9) % Plt Count 155 (140-400) K/mcL Neutrophils # 3.1 (1.6-8.9) K/mcL BMP 11/05/17 00:37 Sodium 141 Potassium 3.4 L Chloride 98 Carbon Dioxide 37 H BUN 13 Creatinine 0.62 Glucose 115 H Calcium 9.1 - ABG Interpretation ABG results: PT/INR, D-dimer PT 15.0 Seconds (9.4-12.1) H 11/04/17 17:30 Consult Discharge Plan - Plan Referrals: Hawk Sarmiento MD [Primary Care Provider] - (1) Knee pain Qualifiers: Chronicity: acute Laterality: left Qualified Code(s): M25.562 - Pain in left knee (2) CHF (congestive heart failure) Qualifiers: Heart failure type: diastolic Heart failure chronicity: chronic Qualified Code(s): I50.32 - Chronic diastolic (congestive) heart failure (3) Afib Qualifiers: Atrial fibrillation type: chronic Qualified Code(s): I48.2 - Chronic atrial fibrillation
--- NOTE | 2017-11-05 13:58 | Cardiology Consult Note ---
Date of Encounter: 11/05/17 Time of Encounter: 13:50 Assessment and Plan (1) Preoperative cardiovascular examination Current Visit: Yes Status: Acute H/o recently diagnosed NICMP- EF 35-40% on TTE and 25-30% on LHC. Mild non- obstructive CAD on LHC. From cardiology standpoint she is moderate risk for procedure although may be higher risk from pulmonary standpoint with known severe pulmonary hypertension. Re-peat TTE was pending in out-pt setting to re-evaluate EF and PAH. Will order to re-evaluate in-patient. (2) Cardiomyopathy Current Visit: Yes Status: Acute H/o NICMP. Currently euvolemic on exam. + SOB and orthopnea from chronic lung disease. Continue maintenance lasix and bb. Not on mami/arb due to hypotension in the past. B/p marginal. After surgery consider low dose aceI. Qualifiers: Cardiomyopathy type: unspecified Qualified Code(s): I42.9 - Cardiomyopathy , unspecified (3) Atrial fibrillation Current Visit: No Status: Chronic Currently rate controlled. intermittent V paced on tele. AVg HR 75 bpm. On xarelto for AC. Currently on hold for possible procedure. Continue toprol xl postoperatively. Qualifiers: Atrial fibrillation type: chronic Qualified Code(s): I48.2 - Chronic atrial fibrillation Discussion w patient/family: The assessment and plan as outlined above was discussed with the patient and/or family members who expressed understanding and agreement. All questions were answered. Thank you for involving us in the care of your patient. Please call with any questions. History of Present Illness Consult date: 11/05/17 Requesting physician: Sagar Jones Consult reason: Pre-operative cardiovascular risk assessment Chief complaint: Knee pain History of present illness: Ms. Rutherford is a 72 year old female with past medical history significant for bradycardia s/p PPM, HTN, atrial fibrillation on xarelto, NICMP, COPD on home O2 and severe pulmonary hypertension. She resented to the ED with severe left knee pain when she woke up yesterday morning. She was unable to bear weight on her knee. She was evaluated by orthopaedic surgery and is considering surgery verses periodic knee injections. Cardiology consulted for pre-operative cardiovascular risk assessment. She is currently living at home. Prior to her knee pain she was able to only complete simple tasks and ambulate in her home. She easily becomes SOB with her activity. She is on home O2 for COPD. Denies chest pain. Reports palpitations at night. 2 pillow orthopnea that is chronic. Denies weight gain or edema. Prior cardiac testing: TTE 08/2017 LVEF 35-40% , severe PAH. TTE 03/2017- EF 50%. LHC 08/2017 demonstrated mild three vessel CAD. EF 25-30%. 2+ mitral regurgitation. Past Med Surg Social Fam HX - Past Medical History Attestation: Yes The following information was validated with the patient. Medical history: arthritis, atrial fibrillation, cardiomyopathy, CHF, COPD, coronary artery disease, GERD, hyperlipidemia, hypertension, thyroid disease, other (severe pulmonary hypertension) Additional medical history: anemia Psychiatric history: anxiety, depression - Past Surgical History Surgical History: orthopedic, other, pacemaker/AICD Additional surgical history: R shoulder complete replacement, knee replacement- right - Social History Smoking Status: 2nd Hand Smoke Exposure Smokeless Tobacco Status: No Alcohol use: none Drug use: none - Family History Mother Family Member Ethnicity: Non- Living Status: Brother Family Member Ethnicity: Non- Living Status: Still Living Sister Family Member Ethnicity: Non- Living Status: Still Living Father Family Member Ethnicity: Non- Living Status: Hx Family Cardiac Disorders: Yes (massive [place]) Medications and Allergies Aspirin Enteric Coated [Aspirin EC] 81 mg PO QAM 12/14/14 [History] Duloxetine HCl [Cymbalta] 60 mg PO QAM 12/14/14 [History] Levothyroxine [Synthroid] 88 mcg PO QAM 03/24/15 [History] Polyethylene Glycol 3350 [MiraLAX] 17 gm PO DAILY PRN 08/31/15 [History] Metoprolol XL (24 HR) Succ [Toprol Xl] 25 mg PO DAILY 03/14/17 [History] Ascorbic Acid [Vitamin C] 500 mg PO DAILY 08/07/17 [History] Cholecalciferol (Vitamin D3) [Vitamin D3] 10,000 unit PO MO 08/07/17 [History] Ferrous Sulfate 325 mg PO DAILY 08/07/17 [History] Mv-Mn/FA/Vit K/Lycop/Lut/Coq10 [Daily Multivitamin Capsule] 1 cap PO DAILY 08/07 [History] Nitroglycerin [Nitrostat] 0.4 mg SL Q5MIN PRN 08/07/17 [History] Omeprazole [PriLOSEC] 40 mg PO QAM 08/07/17 [History] Rivaroxaban [Xarelto] 20 mg PO 1700 08/07/17 [History] Simvastatin [Zocor] 40 mg PO DAILY 08/07/17 [History] Furosemide [Lasix] 40 mg PO BIDDIURETIC tablet 08/14/17 [Rx] Gabapentin [Neurontin] 100 mg PO TID #15 capsule 08/14/17 [Rx] OxyCODONE/APAP 10/325 [Percocet 10/325 MG] 1 each PO Q6HR PRN 5 Days #15 tablet 08/14/17 [Rx] Buspirone HCl [Buspar] 10 mg PO BID 11/05/17 [History] 3 Allergy/AdvReac Type Severity Reaction Status Date / Time Penicillins [PCN] Allergy Blister Verified 11/05/17 11:34 All Systems Review: The remainder of the systems were reviewed and are negative Physical Examination Vital Signs, Last 4 Hours Temp Pulse Resp BP Pulse Ox 11/05/17 11:16 97.7 F 76 18 104/69 98 General: Conversant, No Apparent Distress HEENT: Atraumatic, Normocephaly, Mucus Membranes Moist Neck: No JVD, Normal carotid pulses Cardiac: Reg Rate and Rhythm, Normal S1 and S2, No Murmur, Other (paced on telemetry) Lungs: Normal Breath Sounds, No Wheeze, Rales, Rhonchi, Other (Mild dyspnea noted with conversation, on O2) Neuro: Alert and responsive, No focal deficits noted Abdomen: Soft, Non-Tender Skin: No rashes noted on visualized skin Musculoskeletal: No Chest Wall Tenderness Extremities: No Clubbing, No Cyanosis, No Edema, Normal Pulses, Other (Mild redness and edma aound left knee.) Results 11/05/17 00:37 11/05/17 00:37 Lab Results 11/05/17 11/05/17 00:37 00:37 WBC 6.7 Hgb 11.9 Hct 37.5 Plt Count 155 Sodium 141 Potassium 3.4 L Chloride 98 Carbon Dioxide 37 H BUN 13 Creatinine 0.62 Glucose 115 H Calcium 9.1 - Imaging and Cardiology Echo: report reviewed Cardiac cath: report reviewed - EKG Interpretation EKG results cardiology: personally reviewed Consult Discharge Plan - Plan Referrals: Hawk Sarmiento MD [Primary Care Provider] -
[2017-11-05] MEDS ORDERED: Perflutren Lipid Microsphere 1.3 ML in 0.9 % Sodium Chloride 8.7 ML IVP ONE (21:00)
[2017-11-06] MEDS: *HR* OxyCODONE/APAP 10/325 TABLET PO PRN ×3 (04:12→20:15)
[2017-11-06] MEDS: *HR* Heparin 5,000 UNIT/ML VIAL SQ SCH ×3 (05:48→20:15)
[2017-11-06] MEDS: Gabapentin 100 MG CAPSULE PO SCH ×3 (08:18→20:14)
[2017-11-06] MEDS: Aspirin Enteric Coated 81 MG Tablet PO SCH (08:18)
[2017-11-06] MEDS: Furosemide 40 MG TABLET PO SCH ×2 (08:18→16:25)
--- NOTE | 2017-11-06 08:34 | Event Note ---
Date of Encounter: 11/06/17 Time of Encounter: 08:31 - Cardiology Event Note Echocardiogram completed and noted. EF improved to 55% compared to 35-40% in August. PAH moderate. Intermediate risk from cardiology standpoint as discuss in consult note. continue medical management and out-pt f/u with cardiology.
[2017-11-06] MEDS: Metoprolol XL (24 HR) Succ 25 MG TAB.ER.24H PO SCH (12:16)
[2017-11-06] MEDS ORDERED: Nitroglycerin 0.4 MG TAB.SUBL SL PRN (12:29)
--- NOTE | 2017-11-06 12:56 | Internal Med Progress Note ---
Hospitalist Progress Note - Encounter Date of Encounter: 11/06/17 Time of Encounter: 17:34 - Subjective Interval History: Awaiting placement. OT to eval - Exam Vitals: Temp Pulse Resp BP Pulse Ox 98.1 F 91 16 97/64 95 11/06/17 10:26 11/06/17 10:26 11/06/17 10:26 11/06/17 10:26 11/06/17 10:26 Exam: Constitutional: NAD Psych: AAO x 3 HEENT: NCAT, EOMI Neck: supple, no JVD Cardio: Irregularly irregular with controlled rate +s1s2, no murmurs/rubs/ gallops, no JVD Resp: clear to ascultation bilaterally, no wheezes/rales/ronchi Extremities: No edema of extremiteis left knee however this tender with range of motion; neurovascularly intact in bilateral lower extremities Neuro: no focal deficits appreciated - Assessment and Plan (1) Knee pain Current Visit: Yes Status: Acute Assessment and Plan: Acute left knee pain with CT imaging consistent with hemarthrosis -Analgesia -Physical therapy evaluation - Ortho evaluated patient Cardiology evaluated patient for surgerical clearance. Patient high risk based on pulm and cardiac co-morbidities [facility] 08/2017: EF 25-30%, mild 3 vessel disease, 2+ mitral regurg Echocardiogram 08/2017: LVEF 35-40%, moderate pulm HTN, no valvular dysfunction. Moderate global and segmental LV systolic dysfunction. - At this point patient requests conservative treatment. PT recommends SNF. Await OT recs Pending placement. (2) CHF (congestive heart failure) Current Visit: Yes Status: Acute Assessment and Plan: -Continue home medications. On metoprolol. I do not see an KELLEN inhibitor on medication list but BP is low, likely reason why. - [facility] 08/2017: EF 25-30%, mild 3 vessel disease, 2+ mitral regurg - Echocardiogram 08/2017: LVEF 35-40%, moderate pulm HTN, no valvular dysfunction. Moderate global and segmental LV systolic dysfunction. No acute issues but her functional status at baseline is poor. (3) Afib Current Visit: Yes Status: Acute Assessment and Plan: Chronic atrial fibrillation -Continue beta marianna -Hold Xarelto and light of hemarthrosis resume when able (4) DVT prophylaxis Current Visit: Yes Status: Acute Assessment and Plan: -Subcutaneous heparin; Xarelto held in light of hemarthrosis - Time Spent with Patient Total time spent is greater than 50% in coordination of care (as documented) at patient's floor/unit and/or counseling patient: Internal Medicine: Result - Labs CBC & Chem 7: 11/05/17 00:37 11/05/17 00:37 - ABG Interpretation ABG results: PT/INR, D-dimer PT 15.0 Seconds (9.4-12.1) H 11/04/17 17:30 - Impressions Impressions Echocardiogram 11/05/17 13:14 Impressions: LVEF 50-55%. Normal LV chamber size and systolic function. Mild concentric left ventricular hypertrophy. Indeterminate diastolic function. Mildly dilated right ventricle with mild hypokinesis. Mildly dilated left atrium and right atrium. Mild mitral regurgitation. Mild tricuspid regurgitation. Moderate pulmonary hypertension. Left Ventricular Wall Motion: Rest Echo Findings All wall segments showed normal motion. Findings: Study Quality * Technically sub-optimal due to clinical status. ECG Findings * Atrial fibrillation. Left Ventricle * LVEF 50-55%. * Mild concentric left ventricular hypertrophy. * Indeterminate diastolic function. * Normal LV chamber size and systolic function. Right Ventricle * Mildly dilated right ventricle. * Mild right ventricular hypokinesis. Left Atrium * Mildly dilated left atrium. Right Atrium * Mildly dilated right atrium. Interatrial Septum * Interatrial septum not well evaluated. Aortic Valve * Trileaflet aortic valve. * Mildly calcified aortic valve leaflets. * No aortic regurgitation. * No aortic stenosis. Mitral Valve * Normal mitral valve structure. * Mild mitral regurgitation. Tricuspid Valve * Mild tricuspid regurgitation. * Estimated RVSP is 50 mmHg. * Estimated RA pressure is 10 mmHg. * Moderate pulmonary hypertension. Pulmonic Valve * Pulmonic valve not well visualized. * No pulmonic regurgitation. Aorta * Normally sized aortic root. Pericardium * The pericardium appears normal. IVC * Normal IVC dimensions and inspiratory collapse. Consult Discharge Plan - Plan Referrals: Hawk Sarmiento MD [Primary Care Provider] - (1) Knee pain Qualifiers: Chronicity: acute Laterality: left Qualified Code(s): M25.562 - Pain in left knee (2) CHF (congestive heart failure) Qualifiers: Heart failure type: diastolic Heart failure chronicity: chronic Qualified Code(s): I50.32 - Chronic diastolic (congestive) heart failure (3) Afib Qualifiers: Atrial fibrillation type: chronic Qualified Code(s): I48.2 - Chronic atrial fibrillation
--- NOTE | 2017-11-06 16:04 | Event Note ---
Date of Encounter: 11/06/17 Time of Encounter: 16:01 I spoke with patient again regarding surgical versus conservative management of her Left knee. Patient continues to request conservative management only for her Left knee due to her comobidities and pulmonary status. I again offered her an injection prior to discharge; however she also declined this at this time. We will send our brace specialist to fit her for a hinged knee brace - to be worn during activity and as needed. Recommend low impact activity. ICE and elevation. She will see sports medicine for follow up to discuss further conservative management. Appt made and faxed to [facility].
[2017-11-07] MEDS: *HR* OxyCODONE/APAP 10/325 TABLET PO PRN ×4 (01:48→20:15)
[2017-11-07] MEDS: *HR* Heparin 5,000 UNIT/ML VIAL SQ SCH ×3 (06:01→20:16)
[2017-11-07] MEDS: Gabapentin 100 MG CAPSULE PO SCH ×3 (09:56→20:16)
[2017-11-07] MEDS: Metoprolol XL (24 HR) Succ 25 MG TAB.ER.24H PO SCH (09:56)
[2017-11-07] MEDS: Furosemide 40 MG TABLET PO SCH (09:57)
[2017-11-07] MEDS: Aspirin Enteric Coated 81 MG Tablet PO SCH (09:57)
--- NOTE | 2017-11-07 13:04 | Internal Med Progress Note ---
Hospitalist Progress Note - Encounter Date of Encounter: 11/07/17 Time of Encounter: 13:10 - Subjective Interval History: Awaiting placement. OT to eval - Exam Vitals: Temp Pulse Resp BP Pulse Ox 99 F 98 18 108/74 95 11/07/17 12:17 11/07/17 12:17 11/07/17 12:17 11/07/17 12:17 11/07/17 12:17 Exam: Constitutional: NAD Psych: AAO x 3 HEENT: NCAT, EOMI Neck: supple, no JVD Cardio: Irregularly irregular with controlled rate +s1s2, no murmurs/rubs/ gallops, no JVD Resp: clear to ascultation bilaterally, no wheezes/rales/ronchi Extremities: No edema of extremiteis left knee however this tender with range of motion; neurovascularly intact in bilateral lower extremities Neuro: no focal deficits appreciated - Assessment and Plan (1) Knee pain Current Visit: Yes Status: Acute Assessment and Plan: Acute left knee pain with CT imaging consistent with hemarthrosis -Analgesia -Physical therapy evaluation - Ortho evaluated patient Cardiology evaluated patient for surgerical clearance. Patient high risk based on pulm and cardiac co-morbidities [facility] 08/2017: EF 25-30%, mild 3 vessel disease, 2+ mitral regurg Echocardiogram 08/2017: LVEF 35-40%, moderate pulm HTN, no valvular dysfunction. Moderate global and segmental LV systolic dysfunction. Echocardiogram 11/05/2017: EF 50-55% - At this point patient requests conservative treatment. - PT recommends SNF. - Await OT recs - Pending placement. - I will defer resuming Eliquis to primary care. She did not have any trauma to cause this hemoarthrosis of the knee. (2) CHF (congestive heart failure) Current Visit: Yes Status: Acute Assessment and Plan: -Continue home medications. On metoprolol. I do not see an KELLEN inhibitor on medication list but BP is low, likely reason why. - [facility] 08/2017: EF 25-30%, mild 3 vessel disease, 2+ mitral regurg - Echocardiogram 08/2017: LVEF 35-40%, moderate pulm HTN, no valvular dysfunction. Moderate global and segmental LV systolic dysfunction. - Echocardiogram this admission, 11/05: LVEF 50-55%, , indeterminate diastolic function, normal LV size and systolic function. No acute issues but her functional status at baseline is poor. (3) Afib Current Visit: Yes Status: Acute Assessment and Plan: Chronic atrial fibrillation -Continue beta marianna -Hold Xarelto and light of hemarthrosis resume when able (4) DVT prophylaxis Current Visit: Yes Status: Acute Assessment and Plan: -Subcutaneous heparin; Xarelto held in light of hemarthrosis Will have to address resuming Xarelto as outpatient. - Time Spent with Patient Total time spent is greater than 50% in coordination of care (as documented) at patient's floor/unit and/or counseling patient: Internal Medicine: Result - Labs CBC & Chem 7: 11/05/17 00:37 11/05/17 00:37 - ABG Interpretation ABG results: PT/INR, D-dimer PT 15.0 Seconds (9.4-12.1) H 11/04/17 17:30 Consult Discharge Plan - Plan Referrals: Hawk Sarmiento MD [Primary Care Provider] - (1) Knee pain Qualifiers: Chronicity: acute Laterality: left Qualified Code(s): M25.562 - Pain in left knee (2) CHF (congestive heart failure) Qualifiers: Heart failure type: diastolic Heart failure chronicity: chronic Qualified Code(s): I50.32 - Chronic diastolic (congestive) heart failure (3) Afib Qualifiers: Atrial fibrillation type: chronic Qualified Code(s): I48.2 - Chronic atrial fibrillation
[2017-11-08] MEDS: *HR* OxyCODONE/APAP 10/325 TABLET PO PRN ×3 (02:33→20:42)
[2017-11-08] MEDS: *HR* Heparin 5,000 UNIT/ML VIAL SQ SCH ×3 (06:28→20:42)
[2017-11-08] MEDS: Aspirin Enteric Coated 81 MG Tablet PO SCH (09:10)
[2017-11-08] MEDS: Gabapentin 100 MG CAPSULE PO SCH ×3 (09:10→20:41)
[2017-11-08] MEDS: Furosemide 40 MG TABLET PO SCH (09:11)
[2017-11-08] MEDS: Metoprolol XL (24 HR) Succ 25 MG TAB.ER.24H PO SCH (09:11)
--- NOTE | 2017-11-08 10:54 | Discharge Summary ---
- NOTES TO OUTPATIENT PROVIDER Notes to Outpatient Provider: a) Follow-up if she should be back on anticoagulation or now. She had hemoarthrosis of the knee but also at risk for VTE. b) Consider dosage adjustment of Lasix. Date of Encounter: 11/08/17 Time of Encounter: 10:49 - Discharge Diagnosis (1) Knee pain Priority: Primary Status: Acute Qualifiers: Chronicity: acute Laterality: left Qualified Code(s): M25.562 - Pain in left knee (2) CHF (congestive heart failure) Priority: Secondary Status: Acute Qualifiers: Heart failure type: diastolic Heart failure chronicity: chronic Qualified Code(s): I50.32 - Chronic diastolic (congestive) heart failure (3) Afib Priority: Secondary Status: Acute Qualifiers: Atrial fibrillation type: chronic Qualified Code(s): I48.2 - Chronic atrial fibrillation (4) DVT prophylaxis Priority: Secondary Status: Acute Hospital course: Ms. Rutherford is a 72 year old female with a past history of severe osteoarthritis who presents with left knee pain. The patient states that she has been progressively having worsening of her left knee pain. It is now affecting her ambulation. Patient has no erythema or warmth to the knee however CT of knee revealed possible hemarthrosis. The patient is unable to ambulate safely return home and therefore will be admitted for observation with sore throat consult for possible arthrocentesis. Patient was told she needed a knee replacement but could not be performed secondary to her heart failure. Orthopedic Surgery was consulted. Cardiology was consulted as well. She is a high-risk patient based on her history of pulmonary and cardiac disease. In this case she opted to not undergo surgery. PT/OT evaluated patient and she is to be discharge to SNF in stable condition. - Time Spent with Patient Total time spent providing and/or coordinating discharge services: - Discharge Medications Prescriptions: OxyCODONE/APAP 5/325 [Percocet 5/325 MG] 1 each PO Q8HR PRN 3 Days #9 tablet PRN Reason: Pain Home Medications: Aspirin Enteric Coated [Aspirin EC] 81 mg PO QAM 12/14/14 [History] Duloxetine HCl [Cymbalta] 60 mg PO QAM 12/14/14 [History] Levothyroxine [Synthroid] 88 mcg PO QAM 03/24/15 [History] Polyethylene Glycol 3350 [MiraLAX] 17 gm PO DAILY PRN 08/31/15 [History] Metoprolol XL (24 HR) Succ [Toprol Xl] 25 mg PO DAILY 03/14/17 [History] Ascorbic Acid [Vitamin C] 500 mg PO DAILY 08/07/17 [History] Cholecalciferol (Vitamin D3) [Vitamin D3] 10,000 unit PO MO 08/07/17 [History] Ferrous Sulfate 325 mg PO DAILY 08/07/17 [History] Mv-Mn/FA/Vit K/Lycop/Lut/Coq10 [Daily Multivitamin Capsule] 1 cap PO DAILY 08/07 [History] Nitroglycerin [Nitrostat] 0.4 mg SL Q5MIN PRN 08/07/17 [History] Omeprazole [PriLOSEC] 40 mg PO QAM 08/07/17 [History] Simvastatin [Zocor] 40 mg PO DAILY 08/07/17 [History] Furosemide [Lasix] 40 mg PO BIDDIURETIC tablet 08/14/17 [Rx] Gabapentin [Neurontin] 100 mg PO TID #15 capsule 08/14/17 [Rx] Buspirone HCl [Buspar] 10 mg PO BID 11/05/17 [History] Docusate [Colace] 100 mg PO BID capsule 11/08/17 [Rx] OxyCODONE/APAP 5/325 [Percocet 5/325 MG] 1 each PO Q8HR PRN 3 Days #9 tablet 05/23 [Rx] Allergies/Adverse Reactions: 3 Allergy/AdvReac Type Severity Reaction Status Date / Time Penicillins [PCN] Allergy Blister Verified 11/05/17 11:34 Date of admission: 11/04/17 17:35 Primary care physician: Hawk Sarmiento MD Consults: 11/04/17 18:12 Consult to Physical Therapy [CONS] Routine Comment: Evaluate, develop and implement POC Reason for Consult: knee pain limiting mobility Does patient have active BEDREST order?: No Is patient medically & hemodynamically stable?: Yes 11/05/17 12:18 Consult to Cardiology [CONS] Routine Comment: Consulting Provider: Cardiology Alfred Reason for Consult: Surgical clearance Call Completed: Yes 11/06/17 12:48 Consult to Occupational Therapy [CONS] Routine Comment: Evaluate, develop and implement POC Reason for Consult: possible ECF on discharge Does patient have active BEDREST order?: No Is patient medically & hemodynamically stable?: Yes Patient assessed for mobility or mobilized this visit?: No 11/06/17 12:50 Consult to Hospital Orderly [CONS] Routine Reason for SW Consult: Patient wanting to discharge to [facility] Discharging clinician: Sagar Jones - Constitutional Vitals: Temp Pulse Resp BP Pulse Ox 97.4 F L 80 16 92/62 97 11/08/17 07:18 11/08/17 07:18 11/08/17 07:18 11/08/17 07:18 11/08/17 07:18 Exam: Constitutional: NAD Psych: AAO x 3 HEENT: NCAT, EOMI Neck: supple, no JVD Cardio: Irregularly irregular with controlled rate +s1s2, no murmurs/rubs/ gallops, no JVD Resp: clear to ascultation bilaterally, no wheezes/rales/ronchi Extremities: No edema of extremiteis left knee however this tender with range of motion; neurovascularly intact in bilateral lower extremities Neuro: no focal deficits appreciated - Patient Status Disposition: Transfer SNF Condition: Good Functional capacity at discharge: uses cane/walker Overall status at discharge: patient is progressing back to baseline - Discharge Instructions Follow Up With: Hawk Sarmiento MD [Primary Care Provider] - - Diet and Activity Activity: as per physical therapy Diet: low fat, low cholesterol, low salt diet
--- NOTE | 2017-11-08 11:05 | Physician Discharge Referral ---
[facility] Referral Info Provider in Charge after Transfer: Other Institutional Level of Care: Skilled - Diagnosis (1) Knee pain Priority: Primary Status: Acute (2) CHF (congestive heart failure) Priority: Secondary Status: Acute (3) Afib Priority: Secondary Status: Acute (4) DVT prophylaxis Priority: Secondary Status: Acute - Transfer Medications Prescriptions: OxyCODONE/APAP 5/325 [Percocet 5/325 MG] 1 each PO Q8HR PRN 3 Days #9 tablet PRN Reason: Pain Home Medications: Aspirin Enteric Coated [Aspirin EC] 81 mg PO QAM 12/14/14 [History] Duloxetine HCl [Cymbalta] 60 mg PO QAM 12/14/14 [History] Levothyroxine [Synthroid] 88 mcg PO QAM 03/24/15 [History] Polyethylene Glycol 3350 [MiraLAX] 17 gm PO DAILY PRN 08/31/15 [History] Metoprolol XL (24 HR) Succ [Toprol Xl] 25 mg PO DAILY 03/14/17 [History] Ascorbic Acid [Vitamin C] 500 mg PO DAILY 08/07/17 [History] Cholecalciferol (Vitamin D3) [Vitamin D3] 10,000 unit PO MO 08/07/17 [History] Ferrous Sulfate 325 mg PO DAILY 08/07/17 [History] Mv-Mn/FA/Vit K/Lycop/Lut/Coq10 [Daily Multivitamin Capsule] 1 cap PO DAILY 08/07 [History] Nitroglycerin [Nitrostat] 0.4 mg SL Q5MIN PRN 08/07/17 [History] Omeprazole [PriLOSEC] 40 mg PO QAM 08/07/17 [History] Simvastatin [Zocor] 40 mg PO DAILY 08/07/17 [History] Furosemide [Lasix] 40 mg PO BIDDIURETIC tablet 08/14/17 [Rx] Gabapentin [Neurontin] 100 mg PO TID #15 capsule 08/14/17 [Rx] Buspirone HCl [Buspar] 10 mg PO BID 11/05/17 [History] Docusate [Colace] 100 mg PO BID capsule 11/08/17 [Rx] OxyCODONE/APAP 5/325 [Percocet 5/325 MG] 1 each PO Q8HR PRN 3 Days #9 tablet 05/23 [Rx] Allergies/Adverse Reactions: 3 Allergy/AdvReac Type Severity Reaction Status Date / Time Penicillins [PCN] Allergy Blister Verified 11/05/17 11:34 - Respiratory Orders Oxygen / L per min Smoking Cessation: Smoking cessation has been advised. For more information, call the [place] Tobacco Quit Line at 8-984-MFMU-NOW. - Advance Directives Code Status: Full Code - Rehabiliation Orders Rehab Orders: Evaluation for Physical Therapy, Evaluation for Occupational Therapy - Treatments Skin tear care topically daily PRN per policy, May check for fecal impaction rectally daily PRN - Diet Orders Cardiac CERTIFICATION: I certify that the transfer of the above named patient to an Extended Care Facility is necessary for the continuing treatment of the diagnosis listed. The above information is true and accurate reflection of patient's current condition. Confidential - Redisclosure prohibited without a patient's written consent.
[2017-11-09 03:34] VITALS: BP 105/71
[2017-11-09] MEDS: *HR* Heparin 5,000 UNIT/ML VIAL SQ SCH ×2 (06:17→14:27)
[2017-11-09] MEDS: *HR* OxyCODONE/APAP 10/325 TABLET PO PRN ×2 (06:17→14:26)
[2017-11-09] MEDS: Aspirin Enteric Coated 81 MG Tablet PO SCH (08:59)
[2017-11-09] MEDS: Gabapentin 100 MG CAPSULE PO SCH ×2 (08:59→14:27)
[2017-11-09] MEDS: Furosemide 40 MG TABLET PO SCH (08:59)
[2017-11-09] MEDS: Metoprolol XL (24 HR) Succ 25 MG TAB.ER.24H PO SCH (09:00)
== END 2017-11-09 14:57 ==
LOC: 3NENU 12:43 → EMEROOARM 12:43 → SUATTDRO 17:35 → 3NENU 18:33 → 3ANU 11-05 15:46
PROVIDERS: ADMIT Internal Medicine; ATTEND Student in an Organized Health Care Education/Training Program